=== PATIENT | female | born 1975 | race Caucasian/White ===

== ENCOUNTER 2017-03-10 10:49 | Emergency (ER) | payer MEDICARE, MEDICAID ==
[~2017-03-10] VITALS: Ht 167.6 cm; Wt 164.7 kg
[~2017-03-10 10:49] MED LIST: ABILIFY20 MG PO; ACETAMINOPHEN500 M3 PO; ACID GONE 420420 ML PO; AZITHROMYCIN250 M1 PO; BACTRIM DS 8001 TAB PO; BACTROBAN21 NS; BENZTROPINE 1MG1 MG PO; CELEXA40 MG PO; CITALOPRAM40 MG PO; CLARITIN 10MG T10 MG PO; CLINDAMYCIN HC300 MG PO; DIFLUCAN150 MG PO; DITROPAN 5MG TAB5 MG PO; ERY-TAB333 MG PO; GENTAMICIN O5 ML/BOT OP; IBUPROFEN600 MG PO; LASIX 40MG. TAB40 MG PO; LISINOPRIL 20MG20 MG PO; LISINOPRIL10 MG PO; LOPERAMIDE2 M1 PO; LORAZEPAM0.5 MG PO; MEDROL 4MG. DOSE4 MG PO; MIRALAX17 GM/PACK PO; MUPIROCIN2% TP; NYSTATIN1 POW; OMEPRAZOLE20 M1 PO; OMNICEF 300 MG300 MG PO; ROBITUSSIN DM 105 ML PO; SEPTRA DS 800 M1 TAB PO; SEROQUEL XR150 MG PO; SEROQUEL XR200 MG PO; SEROQUEL XR400 MG PO; VIBRAMYCIN 100100 MG PO; VISTARIL25 M1 PO; ZAROXOLYN 2.5M2.5 MG PO; ZOVIRAX51 TP
[2017-03-10] MEDS ORDERED: LEVAQUIN250 M1 PO (11:13)
--- NOTE | 2017-03-10 11:17 | Emergency Room Report ---
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 Clinical Suspician of Infection? Mental Status: Sepsis Risk: Have you (or family members/close friends) recently traveled outside the [place]? If Yes, where/when: Have you had exposure to infectious disease within the past month? TB? Other? Specify: 42 years old white female was brought by EMS because she needs her ring cut off. The patient has generalized lymphedema both upper and lower extremities. It looks like feeling on the LEFT ring finger has been sinking in her skin for a while with with purulent skin infection. She has no loss of movement or loss of Refill. She has finished a course of minocyclin antibiotic 2 days ago. Source patient, RN notes reviewed, EMS, fdc records Exam Limitations no limitations ALLERGIES Coded Allergies: Penicillins (Mild, 03/26/16) codeine (Mild, 03/26/16) Sulfa (Sulfonamide Antibiotics) (03/10/17) mupirocin (03/10/17) Home Medications Active Scripts CEFDINIR (Cefdinir) 300 MG PO BID #14 CAP Prov: 03/28/16 Clindamycin Hcl (Clindamycin 300MG) 300 MG PO TID #30 CAP Prov: 03/28/16 MUPIROCIN (Mupirocin 2% OINT) 1 DEMETRIA TP TID #1 TUBE Ref 3 Prov: 03/28/16 Metolazone (Zaroxolyn 2.5MG) 2.5 MG PO DAILY #30 TAB Ref 2 Prov: 03/28/16 Reported Medications Oxybutynin Chloride (Ditropan 5MG Tab) 5 MG PO DAILY Furosemide (Lasix 40MG) 40 MG PO BID Quetiapine Fumarate (Seroquel Xr) 300 MG PO DAILY Aripiprazole (Abilify) 20 MG PO DAILY CITALOPRAM HYDROBROMIDE (Citalopram HBr) 40 MG PO DAILY LISINOPRIL (Lisinopril) 20 MG PO DAILY Loratadine (Claritin 10MG) 10 MG PO DAILY Polyethylene Glycol 3350 (Miralax) 17 GM PO DAILY Acetaminophen (Acetaminophen Extra Strength) 1,000 MG PO Q4HP MAG CARB/AL HYDROX/ALGINIC AC (Acid Gone Antacid Liquid) 30 ML PO PRN Benztropine Mesylate (Benztropine 1MG Tablet) 1 MG PO Q4HP DEXTROMETHORPHAN-GG (Guaifenesin Dm Syrup) 10 ML PO PRN Hydroxyzine Pamoate (Vistaril 25MG CAP) 25 MG PO Q4HP IBUPROFEN (Ibuprofen 600MG) 600 MG PO Q6HP Loperamide Hydrochloride (Loperamide) 2 MG PO Q3HP Lorazepam 0.5 MG PO Q8HP Omeprazole 20 MG PO DAILY Quetiapine Fumarate (Seroquel Xr) 400 MG PO QHS History Medical History General CAD? No Angina: No PA: No Hypertension? Yes Hyperlipidemia? No CHF? No DVT? No PE? No COPD? No Asthma? No Anemia? No GERD? No Gastric ulcers? No GI Bleed? No Hernia? No Thyroid Problems? No Hypothyroidism? No CVA? No Seizures? No Diabetes? Yes Insulin Dependent: No Insulin Pump: No Home FSBS? No Renal Insuffiency? No End Stage Renal Disease? No UTI? No Stones? No BPH? No GB Disease: No Nephritic Syndrome? No Asplenia? No Hepatitis? No Sickle Cell Disease? No Arthritis? No Migraines? No Cataracts? No Glaucoma? No MRSA? No HIV? No TB? No Anxiety? No Depression? No Cancer? No More? Yes Additional hx: SCHIZOPRENIA Immunization Hx DT/Tetanus NOT SURE Flu 2015-FSN Pneumonia Refuses Surgical Hx Previous Surgery?N Family History Family Hx Diabetes Yes CAD Yes Hypertension Yes Hyperlipidemia Yes Cancer Yes TB No Social History Smoking Hx Packs/day 1 1/2 - 2 Packs Alcohol Alcohol: No Review of Systems All Other Systems Reviewed and Negative Constitutional no symptoms reported Eyes no symptoms reported ENT no symptoms reported. Respiratory no symptoms reported, see HPI, cough Cardiovascular no symptoms reported Gastrointestinal no symptoms reported Genitourinary no symptoms reported. Musculoskeletal see HPI Skin see HPI Psychiatric/Neurological no symptoms reported Physical Exam Vital Signs Vital Signs Date Time Temp Pulse Resp B/P Pulse O2 O2 Flow FiO2 Ox Delivery Rate 03/10 1049 98.4 122 20 156/96 98 - WBC >12,000 or <4,000 or 10% bands? 2 or more SIRS Criteria Met? B/P:156/96 MAP:116 Creatinine >2.0? UA output<0.5ml/kg/hr for 2 hrs? Platelet count >100,000? Lactate >2.0mmol/1? INR >1.2 or PTT > than 60 sec? Evidence of Organ Dysfunction? Provider documented clinical suspician of infection? N Sepsis Criteria Count: 2 Sepsis Risk: Possible Sepsis Risk General Appearance normal appearance, WD/WN Eye Exam - bilateral eye normal exam, bilateral eye PERRL, bilateral eye EOMI Ear, Nose, Throat hearing grossly normal, normal ENT inspection Neck normal inspection, non-tender, supple, full range of motion Respiratory Status Yes: trachea midline, chest symmetrical, non tender chest. No: respiratory distress. Lung Sounds bilateral: normal breath sounds, lungs clear. Cardiovascular normal exam, regular rate/rhythm, no peripheral edema, no gallop, no JVD, no murmur, no rub, normal peripheral pulses Peripheral Pulses Pulses normal Yes Gastrointestinal normal bowel sounds, normal exam, non tender, soft, no organomegaly Back normal inspection, no CVA tenderness, no vertebral tenderness Extremities swelling, edema over the RIGHT ring finger with the back or blurring sunken about 2 mm into the skin with Dr. granulation tissue on the edges and a foul smell offensive discharge. The crown all during is on the palmar side with no skin break. 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 No Results/Orders Orders Procedure Date/time Status [id number] (RING)-3 VIEWS 03/10 1057 Active XRAY/CT/US XRAY/CT/US XRAY hand XR interpretation by reviewed by me Xray Results soft tissue swelling and no osteomyelitis Procedures FB Removal (excluding Eyes) FB Removal Risks/benefits discussed with pt/guardian? Yes Location/Suspected object proximal left ring finger. Anesthesia None Risk of retained FB explained to pt/guardian? Yes Progress using a ring cutter and pliar the ring was removed. Nail Proc/Finger Tip Repair Nail Proc/Finger Tip Repair Risks/benefits discussed with pt/guardian? Yes Nail Procedure/Finger Tip Repair ring cutting Anesthesia None Evacuation of subungual hematoma No Complete nail removal No Partial nail removal %- No Excision of nail & nailbed No Debridement [place] No Debridement Moderate No Debridement Heavy No Rongeur of bone No Removal of FB Yes Irrigation ml- Yes Sterile Dressing Applied No Finger Splint No Progress after the ring removal the patietn was able to use her finger and flexe the distal phalanges. Central Line Central Line Placement Risks/benefits discussed with pt/guardian? No Anesthesia none Departure Departure Time of Disposition 1104 Disposition DC Home or Self Care(routine) Clinical Impression Primary Impression: Ring avulsion Secondary Impressions: Allergy to sulfa drugs, Cellulitis, Lymphedema, Penicillin allergy Condition STABLE Referrals Kateryna DILL,Emiliano Miller (PCP) Additional Instructions using the ring cutter the ring was removed daily wound care with soap and water apply neosporin at least twice a day levaquin 500 mg continue diuretics andf follow up with Dr. Khalil in [place] for a recheck Discharge Counseling Counseled pt/family regarding diagnosis, R/B of controlled subst., medications/RX, home care, follow up needs Prescriptions Current Visit Scripts Levofloxacin (Levaquin) 250 MG PO DAILY #10 TAB ED Critical Care Critical Care No If Critical Care minutes are documented, the time involved in the performance of seperately reportable procedures was not counted toward critical care time documented. I directly delivered medical care to this critically ill and/or injured patient. Timely evaluation and treatment was necessary to address the significant organ system(s) dysfunction present in this patient. at 1117
[2017-03-10 11:41] VITALS: BP 150/84
--- NOTE | 2017-03-10 11:57 | RADIOLOGY REPORT PS360 ---
[id number] (RING)-3 VIEWS HISTORY: OPEN AREA Patient Age: 42 years: Female Ordering Physician: Karissa Bautista MD TECHNIQUE: 3 views of the fourth finger Including the fifth finger on the frontal and oblique views.. COMPARISON :None FINDINGS No previous studies available. Swelling of the fingers evident most evident at proximal fingers and particularly pronounced at the proximal fourth finger. No radiopaque foreign body is evident. No osseous destruction nor evidence of osteomyelitis. Understand clinically there is suggestion infection related to the patient's fourth finger.. There is a ringlike residual tapering at the base of fourth finger which may reflect residual from removed ring possibly IMPRESSION: No osseous findings. No evidence osteomyelitis on plain film. Swelling at the fingers most pronounced at the proximal fourth finger
== END 2017-03-10 11:42 | disposition home or self-care (01) ==
LOC: ER 10:49
DX: S61.201A Unspecified open wound of left index finger without damage to nail, initial encounter (principal); L03.012 Cellulitis of left finger; I89.0 Lymphedema, not elsewhere classified; Z88.0 Allergy status to penicillin; Z88.2 Allergy status to sulfonamides

== ENCOUNTER 2017-03-17 02:14 | Emergency (ER) | payer MEDICARE, MEDICAID ==
[~2017-03-17] VITALS: Ht 167.6 cm; Wt 157.4 kg
[~2017-03-17 02:14] MED LIST changes: +LEVAQUIN250 M1 PO
[2017-03-17 03:08] LABS: LYMPH # 2.4 K/mm3 (0.7-4.5); LYMPH % 27.5 % (10-50.0)
--- NOTE | 2017-03-17 03:09 | Emergency Room Report ---
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 Denies ttp when c-spine palpated. 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 N Clinical Suspician of Infection? N Mental Status: 1 - Regular (Normal Baseline) Sepsis Risk:Low Sepsis Risk Have you (or family members/close friends) recently traveled outside the [place]? N If Yes, where/when: Have you had exposure to infectious disease within the past month? N TB? Other? Specify: Source patient, RN notes reviewed, EMS, fdc records, old records Exam Limitations no limitations Comment slipped after coughing episode this am and hit forehead w/o loc but has hematoma Cardiac Chest Pain Chest pain indicative of cardiac No Timing/Duration this evening Severity moderate ALLERGIES Coded Allergies: Penicillins (Mild, 03/26/16) codeine (Mild, 03/26/16) Sulfa (Sulfonamide Antibiotics) (03/10/17) mupirocin (03/10/17) Home Medications Active Scripts CEFDINIR (Cefdinir) 300 MG PO BID #14 CAP Prov: 03/28/16 Clindamycin Hcl (Clindamycin 300MG) 300 MG PO TID #30 CAP Prov: 03/28/16 MUPIROCIN (Mupirocin 2% OINT) 1 DEMETRIA TP TID #1 TUBE Ref 3 Prov: 03/28/16 Metolazone (Zaroxolyn 2.5MG) 2.5 MG PO DAILY #30 TAB Ref 2 Prov: 03/28/16 Levofloxacin (Levaquin) 250 MG PO DAILY #10 TAB Prov: 03/10/17 Reported Medications Oxybutynin Chloride (Ditropan 5MG Tab) 5 MG PO DAILY Furosemide (Lasix 40MG) 40 MG PO BID Quetiapine Fumarate (Seroquel Xr) 300 MG PO DAILY Aripiprazole (Abilify) 20 MG PO DAILY CITALOPRAM HYDROBROMIDE (Citalopram HBr) 40 MG PO DAILY LISINOPRIL (Lisinopril) 20 MG PO DAILY Loratadine (Claritin 10MG) 10 MG PO DAILY Polyethylene Glycol 3350 (Miralax) 17 GM PO DAILY Acetaminophen (Acetaminophen Extra Strength) 1,000 MG PO Q4HP MAG CARB/AL HYDROX/ALGINIC AC (Acid Gone Antacid Liquid) 30 ML PO PRN Benztropine Mesylate (Benztropine 1MG Tablet) 1 MG PO Q4HP DEXTROMETHORPHAN-GG (Guaifenesin Dm Syrup) 10 ML PO PRN Hydroxyzine Pamoate (Vistaril 25MG CAP) 25 MG PO Q4HP IBUPROFEN (Ibuprofen 600MG) 600 MG PO Q6HP Loperamide Hydrochloride (Loperamide) 2 MG PO Q3HP Lorazepam 0.5 MG PO Q8HP Omeprazole 20 MG PO DAILY Quetiapine Fumarate (Seroquel Xr) 400 MG PO QHS History Medical History General CAD? No Angina: No DC: No Hypertension? Yes Hyperlipidemia? No CHF? No DVT? No PE? No COPD? No Asthma? No Anemia? No GERD? No Gastric ulcers? No GI Bleed? No Hernia? No Thyroid Problems? No Hypothyroidism? No CVA? No Seizures? No Diabetes? Yes Insulin Dependent: No Insulin Pump: No Home FSBS? No Renal Insuffiency? No End Stage Renal Disease? No UTI? No Stones? No BPH? No GB Disease: No Nephritic Syndrome? No Asplenia? No Hepatitis? No Sickle Cell Disease? No Arthritis? No Migraines? No Cataracts? No Glaucoma? No MRSA? No HIV? No TB? No Anxiety? No Depression? No Cancer? No More? 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 Respiratory see HPI, cough, denies shortness of breath, denies wheezing Cardiovascular denies chest pain, denies palpitations, denies syncope Gastrointestinal denies abdominal pain, denies diarrhea, denies vomiting Genitourinary denies: dysuria, frequency, hesitancy, hematuria. Musculoskeletal see HPI, denies back pain, denies joint pain, denies joint swelling, neck pain Skin denies rash Psychiatric/Neurological see HPI, headache, denies seizure Physical Exam Vital Signs Vital Signs Date Time Temp Pulse Resp B/P Pulse O2 O2 Flow FiO2 Ox Delivery Rate 03/17 0217 97.5 96 14 153/82 96 - WBC >12,000 or <4,000 or 10% bands? 2 or more SIRS Criteria Met? B/P:153/82 MAP:105 Creatinine >2.0? UA output<0.5ml/kg/hr for 2 hrs? Platelet count >100,000? Lactate >2.0mmol/1? INR >1.2 or PTT > than 60 sec? Evidence of Organ Dysfunction? Provider documented clinical suspician of infection? N Sepsis Criteria Count: 1 Sepsis Risk: Low Sepsis Risk General Appearance no apparent distress Eye Exam - bilateral eye PERRL, bilateral eye EOMI Ear, Nose, Throat normal ENT inspection Neck limited range of motion, tender lateral Respiratory Status No: respiratory distress. Lung Sounds bilateral: lungs clear. 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 No Results/Orders Laboratory Tests 03/17/17 0300: Urine Color YELLOW, Urine Appearance CLEAR, Urine pH 6.0, Ur Specific [place] 1.010, Urine Protein NEGATIVE, Urine Ketones NEGATIVE, Urine Blood NEGATIVE, Urine Nitrate NEGATIVE, Urine Bilirubin NEGATIVE, Urine Urobilinogen 0.2, Ur Leukocyte Esterase NEGATIVE, Urine WBC OCC, Ur Squamous Epith Cells 10-20, Urine Glucose NEGATIVE 03/17/17 0245: Sodium 131 L, Potassium 3.4 L, Chloride 96 L, Carbon Dioxide 29, BUN 7, Creatinine 0.8, Estimated Creat Clear 225 H, Estimated GFR (MDRD) 78, Glucose 151 H, Calcium 8.4 L, Total Bilirubin 0.3, AST 12 L, ALT 24, Alkaline Phosphatase 86, Creatine Kinase 55, CK-MB (CK-2) Rel Index 0.9, CK and CKMB Interp < 0.5, Troponin I < 0.02, Total Protein 6.9, Albumin 3.0 L, Globulin 3.9 H, Albumin/Globulin Ratio 0.8 L, WBC 8.8, RBC 4.44, Hgb 13.1, Hct 40.4, MCV 91.1, RDW 17.4, Plt Count 229, MPV 8.4, Gran % 64.3, Gran # 5.7, Lymphocytes % 27.5, Monocytes % 4.8, Eosinophils % 2.8, Basophils % 0.7, Lymphocytes # 2.4, Monocytes # 0.4, Eosinophils # 0.3, Basophils # 0.1, PUBS MCHC 32.5, MCH 29.6 Current Medication Orders Sig/Maribel Start time Last Medication Dose Route Stop Time Status Admin Albuterol/Ipratropium 3 ML ONCE ONE 03/17 0300 DC INH 03/17 0301 Sodium Chloride 1,000 ML .STK-MED ONE 03/17 0253 DC IV Sodium Chloride 10 ML PRN PRN 03/17 0245 AC IV 03/18 0243 Sodium Chloride 1,000 ML .Q1H1M 03/17 0245 DC 03/17 IV 03/17 0345 0255 Sodium Chloride 10 ML PRN PRN 03/17 0245 AC IV 03/18 0244 Orders Procedure Date/time Status DIET-NOTHING BY MOUTH 03/[address] SCAN REQ 03/[address] CERVICAL SPINE W/O CONT. 03/[address] HEAD W/O CONTRAST 03/17 0319 Active URINE 03/17 025 Complete RT REQUEST DUONEB 03/17 247 Active CHEST(2 VIEWS-NOT PORTABLE) 03/17 024 Active ELECTROCARDIOGRAM REQUEST 03/[address] HEAD REQ 09/24 0244 Active IV SALINE LOCK 03/17 244 Active PERSONNEL ASSISTANT 03/17 244 Active URINALYSIS/COMPLETE 03/17 244 Complete CBC WITH AUTO DIFF 03/17 244 Complete CARDIAC ENZYMES 03/17 244 Complete CHEM 12 PROFILE 03/17 244 Complete 12 LEAD EKG-NORMAN (INITIAL) 03/17 UNK Active CM/EKG CM/plater production Rhythm Normal Sinus Rhythm EKG non-spec. ST/Twave chgs XRAY/CT/US XRAY/CT/US 1 XRAY chest XR interpretation by reviewed by me Xray Results normal/NAD XRAY/CT/US 2 CT head, C-spine CT interpretation by discussed w/radiologist Time results known: 411 CT Results no fracture seen, abnormal (see report) Departure Departure Time of Disposition 412 Disposition DC Home or Self Care(routine) Clinical Impression Primary Impression: Cervical stenosis of spine Secondary Impressions: Foraminal stenosis of cervical region Traumatic hematoma of forehead Qualifiers: Encounter type: initial encounter Qualified Code: S00.83XA - Contusion of other part of head, initial encounter Condition STABLE Patient Instructions DI for Closed Head Injury Additional Instructions ice and resume meds and see pcp for follow up Discharge Counseling Counseled pt/family regarding diagnosis, test results, follow up needs ED Critical Care Critical Care No at 0421
[2017-03-17 03:12] LABS: URINE BILIRUBIN - DIPSTICK NEGATIVE (NEG); URINE BLOOD NEGATIVE (NEG)
[2017-03-17 03:12] LABS: HEMOGLOBIN 13.1 g/dL (12.2-16.2)
[2017-03-17 03:29] LABS: BUN 7 mg/dL (7-18)
[2017-03-17 03:36] LABS: GFR (ESTIMATED) 78 ML/MIN (59-)
[2017-03-17 04:32] VITALS: BP 145/76
--- NOTE | 2017-03-17 06:41 | RADIOLOGY REPORT PS360 ---
CHEST(2 VIEWS-NOT PORTABLE) HISTORY: RECENT RESPIRATORY INFECTION, WHEEZING ORDERING PHYSICIAN: Devin Avendaño MD PATIENT AGE: 42 years COMPARISON: None available FINDINGS: The cardiomediastinal silhouette and pulmonary vascularity are within normal limits. No lobar consolidation or collapse. An 11 mm opacity is present in the right suprahilar region and could be due to summation artifact versus pulmonary nodule. Slight reversal thoracic kyphosis. IMPRESSION: No acute finding. Right suprahilar nodule versus summation density. Follow-up chest x-rays may be of further value
--- NOTE | 2017-03-17 06:42 | RADIOLOGY REPORT PS360 ---
CT HEAD W/O CONTRAST HISTORY: Headache, pain, contusion, hematoma right frontal area FALL ORDERING PHYSICIAN: Devin Avendaño MD PATIENT AGE: 42 years COMPARISON: None TECHNIQUE: Axial images obtained without contrast. Brain and bone windows reviewed. FINDINGS: No midline shift, mass effect, intracranial hemorrhage, hydrocephalus, or extra-axial fluid collection is evident. The calvarium has an unremarkable appearance. Soft tissue swelling is present in the right frontal scalp area. No mastoid effusion. The visualized paranasal sinuses are unremarkable. IMPRESSION: 1. No acute intracranial findings. 2. Right frontal scalp hematoma
--- NOTE | 2017-03-17 06:48 | RADIOLOGY REPORT PS360 ---
CT CERVICAL SPINE W/O CONT INDICATION: Neck pain following injury FALL ORDERING PHYSICIAN: Devin Avendaño MD PATIENT AGE: 42 years COMPARISON: None TECHNIQUE: Axial images are obtained without contrast. Sagittal and coronal reformatted images are reviewed as well. FINDINGS: Reformatted images are somewhat limited technically due to patient's body habitus. There is normal alignment. There is straightening of the cervical lordosis There is a defect in the posterior arch of C1 on the left produces well-circumscribed and may be developmental/congenital as opposed to fracture. The left side of the arch of C1 is hypoplastic compared to the right side. Multilevel degenerative disc disease is present at C3-C7 most severe at C5-C6 and C6-C7 with right and left disc osteophyte complexes, canal stenosis, bilateral lateral recess and foraminal narrowing at C5 and disc osteophyte complex on the right at C6-C7 with right-sided lateral recess and foraminal narrowing. The lung apices are clear. No prevertebral soft tissue swelling. IMPRESSION: 1. No acute fracture 2. 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 3. Multilevel cervical spondylosis with canal stenosis and foraminal lateral recess narrowing as detailed above
== END 2017-03-17 04:32 | disposition home or self-care (01) ==
LOC: ER 02:14
PROVIDERS: Emergency Medicine
DX: S00.83XA Contusion of other part of head, initial encounter (principal); W22.8XXA Striking against or struck by other objects, initial encounter; Y92.9 Unspecified place or not applicable; Z88.0 Allergy status to penicillin; Z88.2 Allergy status to sulfonamides; Z88.6 Allergy status to analgesic agent; M48.02 Spinal stenosis, cervical region; I10 Essential (primary) hypertension; E11.9 Type 2 diabetes mellitus without complications; Z72.0 Tobacco use

== ENCOUNTER 2017-04-07 15:06 | Emergency (ER) | payer MEDICARE, MEDICAID ==
[~2017-04-07] VITALS: Ht 167.6 cm; Wt 157.4 kg
--- NOTE | 2017-04-07 15:28 | Emergency Room Report ---
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 FELL OFF PICNIC TABLE ON TO GROUND. 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 N Clinical Suspician of Infection? Y Mental Status: 1 - Regular (Normal Baseline) Sepsis Risk:Possible Sepsis Risk Have you (or family members/close friends) recently traveled outside the [place]? N If Yes, where/when: Have you had exposure to infectious disease within the past month? N TB? Other? Specify: Comment The patient arrives by ambulance from [facility] for an infected wound. She says that she fell 3-4 weeks ago sustaining an abrasion to the dorsum of her LEFT foot. The wound has gotten deeper since then and over the past 2-3 days she has developed redness around it. She says she had a low-grade fever last night. She is already on minocycline because of a recurrent cellulitis of her LEFT lower leg that she says originated from a "spider bite" 6 months ago. She says that she is prediabetic. ALLERGIES Coded Allergies: Penicillins (Mild, 03/26/16) codeine (Mild, 03/26/16) Sulfa (Sulfonamide Antibiotics) (03/10/17) mupirocin (03/10/17) Home Medications Reported Medications Furosemide (Lasix 40MG) 40 MG PO BID CITALOPRAM HYDROBROMIDE (Citalopram HBr) 40 MG PO DAILY Loratadine (Claritin 10MG) 10 MG PO DAILY Polyethylene Glycol 3350 (Miralax) 17 GM PO DAILY Acetaminophen (Acetaminophen Extra Strength) 1,000 MG PO Q4HP Benztropine Mesylate (Benztropine 1MG Tablet) 1 MG PO Q4HP IBUPROFEN (Ibuprofen 600MG) 600 MG PO Q6HP Loperamide Hydrochloride (Loperamide) 2 MG PO Q3HP Lorazepam 1 MG PO Q4HP Aripiprazole (Abilify) 30 MG PO DAILY Oxybutynin Chloride (Ditropan 5MG Tab) 10 MG PO DAILY Quetiapine Fumarate (Seroquel Xr) 300 MG PO QHS LISINOPRIL (Lisinopril) 20 MG PO DAILY Minocycline Hcl (Minocycline 100MG. Capsule) 100 MG PO BID 7 Days Loratadine (Loratadine 10MG Tablet) 10 MG PO DAILY Lactulose (Lactulose) 10 GM PO DAILYP PRN CONSTIPATION History Medical History General CAD? No Angina: No NH: No Hypertension? Yes Hyperlipidemia? No CHF? No DVT? No PE? No COPD? No Asthma? No Anemia? No GERD? No Gastric ulcers? No GI Bleed? No Hernia? No Thyroid Problems? No Hypothyroidism? No CVA? No Seizures? No Diabetes? No Insulin Dependent: No Insulin Pump: No Home FSBS? No Renal Insuffiency? No End Stage Renal Disease? No UTI? Yes Stones? No BPH? No GB Disease: No Nephritic Syndrome? No Asplenia? No Hepatitis? No Sickle Cell Disease? No Arthritis? No Migraines? No Cataracts? No Glaucoma? No MRSA? No HIV? No TB? No Anxiety? No Depression? No Cancer? No More? 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 2 or more SIRS Criteria Met? B/P:131/75 MAP:93 Creatinine >2.0? UA output<0.5ml/kg/hr for 2 hrs? Platelet count >100,000? Lactate >2.0mmol/1? INR >1.2 or PTT > than 60 sec? Evidence of Organ Dysfunction? Provider documented clinical suspician of infection? Y Sepsis Criteria Count: 2 Sepsis Risk: Possible Sepsis Risk General Appearance no apparent distress Respiratory Status No: respiratory distress. Cardiovascular normal exam, normal peripheral pulses Extremities 2 cm x 2.5 cm ulcer on the dorsum of the LEFT foot over the region of the distal fourth metatarsal. some exposure of the dermis and minimal exposure of subcutaneous fat. 3 cm area of exfoliation around it., erythema surrounds this wound extending approximately 10 cm diameter., no purulent drainage can be expressed. No lymphangitis., 1 cm x 2.5 cm healed scar anterior LEFT lower leg with surrounding erythema approximately 10 cm. Patient states this has been a chronic recurrent problem for 6 months and she is currently taking antibiotics for this. Neurologic alert, no motor/sensory deficits Medical Decision Making LABS/Meds/Orders Pt receiving controlled substance in ED? No Results/Orders Laboratory Tests 04/07/17 161: Lactic Acid 1.3 04/07/17 161: Sodium 136, Potassium 4.0, Chloride 98, Carbon Dioxide 32, BUN 7, Creatinine 0.7 , Estimated Creat Clear 257 H, Estimated GFR (MDRD) 91, Glucose 103, Calcium 8.7, WBC 7.9, RBC 4.45, Hgb 13.2, Hct 39.7, MCV 89.2, RDW 17.0, Plt Count 238, MPV 8.4, Gran % 74.2, Gran # 5.8, Lymphocytes % 18.1, Monocytes % 5.8, Eosinophils % 1.6, Basophils % 0.4, Lymphocytes # 1.4, Monocytes # 0.5, Eosinophils # 0.1, Basophils # 0.0, PUBS MCHC 33.1, MCH 29.6 Current Medication Orders Sig/Maribel Start time Last Medication Dose Route Stop Time Status Admin Sodium Chloride 100 ML .STK-MED ONE 04/07 1622 DC IV Clindamycin Phosphate 0 .STK-MED ONE 04/07 162 DC IV Clindamycin Phosphate 900 MG ONCE ONE 04/07 161 DC 04/07 Sodium Chloride 100 ML IV 04/07 1714 1625 Sodium Chloride 10 ML PRN PRN 04/07 1530 DCD IV 04/08 1523 Orders Procedure Date/time Status FOOT-LT-3 VIEWS 04/07 1546 Active IV SALINE LOCK 04/07 1523 Active CULTURE, BLOOD 04/07 1523 Active LACTIC ACID 04/07 1523 Complete CBC WITH AUTO DIFF 04/07 1523 Complete BASIC METABOLIC PROFILE 04/07 1523 Complete CULTURE, WOUND 04/07 1522 Active XRAY/CT/US XRAY/CT/US XRAY foot Comment X-ray interpreted by Robel Fry M.D.: small metallic foreign body plantar aspect of the great toe, not area of current concern. No signs of osteomyelitis Departure Departure Disposition DC Home or Self Care(routine) Clinical Impression Primary Impression: Cellulitis of foot Condition STABLE Referrals Kateryna DILL,Emiliano Miller (PCP/Family) Patient Instructions DI for Cellulitis -- Adult Additional Instructions Stop minocycline and start clindamycin. Follow-up with Dr. Avendaño tomorrow for further treatment and possible referral to wound care. Return if fever greater than 101 degrees or worsening redness or swelling. Prescriptions Current Visit Scripts Clindamycin Hcl (Clindamycin 300MG) 300 MG PO QID #40 CAP ED Critical Care Critical Care No at 1753
--- OUTSIDE RECORDS SUMMARY | 2017-04-07 15:36 | External Medical Summary Rpt | Continuity of Care Document ---
Author Author Organization Address Unknown Phone Unavailable Care Team Providers Care Pack Puller Name Role Phone , Unavailable Unavailable EMS Current Medications Section EMS Allergies and Adverse Reactions EMS Past Medical History Medications Administered Section EMS Procedures Performed EMS Vital Signs EMS Patient Care Report Narrative EC2 responded to [place] for a 42 year old female who had swelling in her left ring finger which resulted in her ring getting stuck on her finger. On arrival patient was standing in the hallway waiting EMS arrival. Patient stated that her finger had been swollen for the past 2 days. Patient was able to walk to EC unit with assist X1 and using a step stool was able to step up into the back of the ambulance, then lay on stretcher and was secured X3. Patient was alert and oriented X4. Patient had a medical history of diabetes, hypertension, and schizophrenia. Upon further assessment the ring was embedded in the patients finger and was black around the edges of the ring and had a foul smell, patient stated on a scale of 1-10 her pain was a 7. An ALS assessment was performed and found no results. It was determined by crew that it would be better for the patient if ring was removed at the Er. Vitals were obtained and monitored during transport. On arrival to receiving facility patients condition was unchanged and was transported inside by stretcher and was able to stand and walk to bed with assist X1. Patient care was transferred without incident.
--- OUTSIDE RECORDS SUMMARY | 2017-04-07 15:36 | External Medical Summary Rpt | Continuity of Care Document ---
Author Author Organization Address Unknown Phone Unavailable Care Team Providers Care Body Worker Name Role Phone , Unavailable Unavailable EMS Current Medications Section EMS Allergies and Adverse Reactions EMS Past Medical History Medications Administered Section EMS Procedures Performed EMS Vital Signs EMS Patient Care Report Narrative Was dispatched to [facility] for a pt that had fallen, upon EMS arrival found pt sitting in chair in the hallway. Pt had a large hematoma to her forehead, pt stated that she was outside sitting on the picnic table and then she woke up on the ground, pt states she doesn't remember what happened. Pt complains of no pain and did not wish to go to the hospital, advised pt that she should really be seen and checked by a Dr. Pt stated that if she got to feeling bad she would have staff call us back, advised pt again that she needed to come with us now to be seen, pt agreed and walked to the ambulance and sat on the stretcher, straps where applied x3 and pt was transported to [facility]. At hospital pt was taken to room 7 in the Er, pt got off of our stretcher and sat bed, nursing staff assumed care for the pt. Erlinda
--- OUTSIDE RECORDS SUMMARY | 2017-04-07 15:36 | External Medical Summary Rpt | Continuity of Care Document ---
Author Author Organization Address Unknown Phone Unavailable Care Team Providers Care Conflict Resolution Professional Name Role Phone , Unavailable Unavailable EMS Current Medications Section EMS Allergies and Adverse Reactions EMS Past Medical History Medications Administered Section EMS Procedures Performed EMS Vital Signs EMS Patient Care Report Narrative Was dispatched to [facility] for a pt that had fallen, upon [...] applied x3 and pt was transported to [facility]. At hospital pt was taken to room 7 in the Er, pt got off of our stretcher and sat bed, nursing staff assumed care for the pt. Erlinda
--- OUTSIDE RECORDS SUMMARY | 2017-04-07 15:36 | External Medical Summary Rpt | Continuity of Care Document ---
Author Author Organization Address Unknown Phone Unavailable Care Team Providers Care Review Coordinator Name Role Phone , Unavailable Unavailable EMS Current Medications Section EMS Allergies and Adverse Reactions EMS Past Medical History Medications Administered Section EMS Procedures Performed EMS Vital Signs EMS Patient Care Report Narrative Was dispatched to [facility] for a pt that had fallen, upon [...] applied x3 and pt was transported to [facility]. At hospital pt was taken to room 7 in the Er, pt got off of our stretcher and sat bed, nursing staff assumed care for the pt. Erlinda
--- OUTSIDE RECORDS SUMMARY | 2017-04-07 15:36 | External Medical Summary Rpt | Continuity of Care Document ---
Author Author Organization Address Unknown Phone Unavailable Care Team Providers Care Cocoa Bean Roaster Name Role Phone , Unavailable Unavailable EMS Current Medications Section EMS Allergies and Adverse Reactions EMS Past Medical History Medications Administered Section EMS Procedures Performed EMS Vital Signs EMS Patient Care Report Narrative Was dispatched to [facility] for a pt that had fallen, upon [...] applied x3 and pt was transported to [facility]. At hospital pt was taken to room 7 in the Er, pt got off of our stretcher and sat bed, nursing staff assumed care for the pt. Erlinda
--- OUTSIDE RECORDS SUMMARY | 2017-04-07 15:36 | External Medical Summary Rpt | Continuity of Care Document ---
Author Author Organization Address Unknown Phone Unavailable Care Team Providers Care Hot Wound [place] Production Supervisor Name Role Phone , Unavailable Unavailable EMS Current Medications Section EMS Allergies and Adverse Reactions EMS Past Medical History Medications Administered Section EMS Procedures Performed EMS Vital Signs EMS Patient Care Report Narrative EC2 responded to [place] for a 42 year old female who [...]
[2017-04-07] MEDS ORDERED: LISINOPRIL 20MG20 MG PO (15:39)
[2017-04-07] MEDS ORDERED: MINOCYCLINE 10100 MG PO (15:44)
--- OUTSIDE RECORDS SUMMARY | 2017-04-07 15:44 | External Medical Summary Rpt | CCD ---
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 Name Role Phone VLAD DICKSON, Unavailable Unavailable VLAD DICKSON BRAUDIS, BRAUDIS Unavailable Unavailable BRAUDIS, BRAUDIS Unavailable Unavailable BRAUDIS JAM, BRAUDIS Unavailable Unavailable JAM BRAUDIS JAM, BRAUDIS Unavailable Unavailable JAM [facility] Unavailable Unavailable SERVICE, [facility] Unavailable Unavailable SERVICE, [facility] [place] [facility], [facility] Unavailable Unavailable DAVIS QUIRINO, DAVIS Unavailable Unavailable [facility], Unavailable [facility]available [facility] Unavailable Unavailable [place], [facility] Unavailable Unavailable [facility], [facility] Unavailable Unavailable LAB, [facility] Unavailable Unavailable LAB, [facility] ROSELYN SHARA, Unavailable Unavailable ROSELYN SHARA [facility] Unavailable Unavailable [facility], [facility] Unavailable Unavailable LLC, [facility] [employer] Unavailable Unavailable LLC, [facility] [employer] [facility] Unavailable Unavailable DIAGNOSTIC SE, [facility] Unavailable Unavailable DIAGNOSTIC SE, [facility] Unavailable Unavailable TRANSPORTATION SER, [facility] FLORES, FLROES Unavailable Unavailable HARRIET, ALE Unavailable Unavailable I, HARRIET, ALE I FINK-BLANDON RAYMOND, Unavailable Unavailable FINK-BLANDON RAYMOND [facility] Unavailable Unavailable [place], [facility] Unavailable Unavailable CENTER[facility] Unavailable Unavailable INC, [facility] Unavailable Unavailable HOSPITAL P, [facility]PITAL P [facility]available Unavailable [facility] Unavailable Unavailable [facility], [facility] ASHUTOSH THE, [facility] Unavailable Unavailable [facility] Unavailable Unavailable [id number], [facility] [id number] [facility] Un[facility], [facility] Unavailable Unavailable [facility], [facility] [place], [place] Unavailable Unavailable [facility] Unavailable Unavailable 11, [facility] Unavailable Unavailable ACTION, [facility] Unavailable Unavailable SERVICES, [facility] SANDRA MCGRAW, SANDRA Unavailable Unavailable [facility] Un[facility]available LLC[facility] Unavailable Unavailable LAB, [facility] Unavailable Unavailable LAB, [facility] SHE, III LANA, Unavailable Unavailable SHE, III LANA [facility], Unavailable Unavailable [facility], Unavailable Unavailable [facility] BRITTON II TERRY, BRITTON Unavailable Unavailable II TERRY JET, JET Unavailable Unavailable JET TOD, JET TOD Unavailable Unavailable MIC NOAM, MIC Unavailable Unavailable [facility] Unavailable Unavailable [facility], [facility] Unavailable Unavailable [facility], [facility], Unavailable Unavailable [facility] SUBLER, MITZY, SUBLER, Unavailable Unavailable MITZY [facility] Unavailable Unavailable SURGERY C, [facility] Unavailable Unavailable GASTROENTEROLOGYAS, [facility] Unavailable Unavailable [facility] CARO LUCIO, Unavailable Unavailable CARO LUCIO [facility] Unavailable Unavailable DEPT DAVE, [facility] WEHRISIS III DEVON, Unavailable Unavailable WEHRMAN III REECE KULKARNI Unavailable Unavailable Purpose Continuity of Care Document - 06-24-2008 through 2016 Problems Code Diagnosis DOS Provider Status I10 ESSENTIAL 01-31-2017 [facility] HYPERTEN[facility]O LAB N 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 N UNS CERV REGION R69 ILLNESS 01-16-2017 [facility] UNSPECIFIED TRANSPORTAT ION SER H6091 UNSPECIFIED 11-14-2016 [facility]YSICIANS EXTERNA GROUP RIGHT EAR H6533 CHRONIC 11-14-2016 [facility] MUCOID PHYSICIANS OTITIS GROUP MEDIA BILATERAL R7301 IMPAIRED 10-04-2016 [facility] GLUCOSE LA [id number] UNS ACUTE 09-27-2016 [facility] NONINFECTIV PHYSICIANS E OTITIS GROUP EXTERNA UNS EAR H6691 OTITIS 09-27-2016 [facility] MEDIA PHYSICIANS UNSPECIFIED GROUP RIGHT EAR E119 TYPE 2 09-18-2016 [facility] WITHOUT COMPLICATIO NS R7303 PREDIABETES 07-26-2016 [facility] E039 HYPOTHYROID 06-21-2016 [facility] ISM PHYSICIANS UNSPECIFIED LA E785 HYPERLIPIDE 06-21-2016 [facility] BREN [facility] UNSPECIFIED LA R300 DYSURIA 06-21-2016 [facility] LA [id number] CUTANEOUS 06-06-2016 [facility] ABSCESS OF PHYSICIANS LEFT LOWER GROUP LIMB B351 TINEA 05-04-2016 TRACY[facility] UNGUIUM E1151 TYPE 2 DM 05-04-2016 BRA[facility]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 X34462 PAIN IN 05-04-2016 [facility] RIGHT FOOT U76323 PAIN IN 05-04-2016 [facility] LEFT FOOT T64111 PAIN IN 05-04-2016 [facility] RIGHT TOES M75691 PAIN IN 05-04-2016 [facility] LEFT TOES R600 LOCALIZED 05-04-2016 [facility] EDEMA I361 NONRHEUMATI 03-27-2016 [facility] INSUFFICIEN CY I517 CARDIOMEGAL 03-27-2016 [facility] P72745 PAIN IN 03-27-2016 [place] [facility] V94338 PAIN IN 03-26-2016 [facility] LEFT LOWER AMBULANCE LEG SERVICE R609 EDEMA 03-26-2016 [facility] UNSPECIFIED [facility] SERVICE D69640 UNS 01-11-2016 [facility] S[facility] ATHEROSCLER [place] ART EXTREM BILATERAL LEGS L851 ACQ 01-11-2016 JUANA SALEH KERATOSIS KERATODERMA PALMARIS ET PLANTARIS N920 EXCESS & 09-13-2015 [facility] FREQUENT PHYSICIANS MENSTRUATIO GROUP N W/REGULAR CYCLE N926 IRREGULAR 09-13-2015 [facility] MENSTRUATIO PHYSICIANS N GROUP UNSPECIFIED Z23 ENCOUNTER 04-04-2015 [facility] IMMUNIZATIO TH DEPT N DAVE 27064 DIAB W/O 03-17-2015 [facility] COMP TYPE PHYSICIANS II/UNS NOT LA STATED UNCNTRL 4019 UNSPECIFIED 03-17-2015 [facility] ESSENTIAL [facility] HYPERTENSIO LA N 5990 URINARY 03-17-2015 [facility] TRACT PHYSICIANS INFECTION LA SITE NOT SPECIFIED 1101 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 SALEH OSIS OF NAIL 49048 ATHEROSCLER 01-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 SALE[facility] OSIS [place] ART EXTREMITIES UNSPEC 7011 ACQUIRED 01-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 SALEH KERATODERMA 7295 PAIN IN 01-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 SALEH SOFT TISSUES OF LIMB 95533 09-21-2014 [facility] TRANSPORTAT ION SER 7823 EDEMA 04-27-2014 JUANA SALEH V5869 LONG-TERM 11-25-2013 [facility] (CURRENT) PHYSICIANS USE OF LA OTHER MEDICATIONS V0481 NEED 04-30-2013 [facility] VACCINATION &INOCULATIO N FLU 514 PULMONARY 07-31-2012 [facility] [place] [address] WHEEZING 07-31-2012 [facility] DI[facility]NO[facility] SE 7862 COUGH 07-31-2012 [place] [address] DIAB 07-21-2012 TRACYGARCIAJordan SALEH W/PERIPH CIRC D/O TYPE II/UNS NOT UNCNTRL 7048 OTHER 05-24-2012 [facility] SPECIFIED [facility]GENCY DISEASE OF SERVICES HAIR&HAIR FOLLICLES 2809 UNSPECIFIED 12-19-2011 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 37795 PAIN IN 12-19-2011 [facility], [employer] LOWER LEG 7906 OTHER 12-19-2011 LAB [facility] ABNORMAL AMERIC BLOOD HOLDING CHEMISTRY 31494 OTHER 07-26-2011 DERMATOLOG[facility] SPECIFIED [facility] 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 12492 PAIN IN 05-28-2011 [facility]INT [employer] PELVIC REGION AND THIGH 6826 CELLULITIS 05-09-2011 [facility] ABSCESS EMERGENCY OF LEG SERVICES EXCEPT FOOT 3829 UNSPECIFIED 04-18-2011 [facility] OTITIS [facility] MEDIA SERVICES 4580 ORTHOSTATIC 04-18-2011 [facility] P 4589 UNSPECIFIED 04-18-2011 [facility] HYPOTENSION SERVICES 6820 CELLULITIS 04-18-2011 [facility] ABSCESS EMERGENCY OF FACE SERVICES 7088 OTHER 04-18-2011 [facility] P 7802 SYNCOPE AND 04-18-2011 [facility] COLLAPSE [facility]Y SERVICES 91335 ABDOMINAL 04-18-2011 [facility] EP[facility] V762 SCREENING 11-16-2010 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 5210 DENTAL 09-19-2010 THE [facility] CARIES & ORAL SURGERY C 5258 OTHER SPEC 09-19-2010 THE IMPLANT DISORDERS & ORAL TEETH&SUPPO SURGERY C RTING STRUCTURES 04100 OTHER 05-25-2010 [facility] OLOGYAS 72534 OTHER SPEC 05-25-2010 [facility] WITHOUT OLOGYAS MENTION HEMORRHAGE 54402 ESOPHAGEAL 05-24-2010 [facility] REFLUX GASTROENTER OLOGYAS 04938 LOSS OF 05-24-2010 [facility] WEIGHT GASTROENTER OLOGYAS 7871 HEARTBURN 05-24-2010 [facility]ENTER OLOGYAS 90141 NONSPECIFIC 05-20-2010 [facility] IOGRAM 3670 HYPERMETROP 03-15-2009 SHEWMAKER FERNANDEZ JESSICA COD 87937 DIARRHEA 01-14-2009 [facility] 47926 UNSPECIFIED 01-14-2009 [facility] 6929 CONTACT 09-07-2008 ARNOLD, DERMATITIS& VLAD W OTHER ECZEMA DUE UNSPEC CAUSE 4659 ACUTE URIS 07-01-2008 [facility] 7881 DYSURIA 07-01-2008 [facility] [employer] I89.0 LYMPHEDEMA, NOT ELSEWHERE CLASSIFIED L03.90 CELLULITIS, UNSPECIFIED M48.02 SPINAL STENOSIS, CERVICAL REGION M99.81 OTHER BIOMECHANIC AL LESIONS OF CERVICAL REGION R79.89 OTHER SPECIFIED ABNORMAL FINDINGS OF BLOOD CHEMISTRY S00.83XA CONTUSION OF OTHER PART OF HEAD, INITIAL ENCOUNTER S61.209A UNSP OPEN WOUND OF UNSP FINGER W/O DAMAGE TO NAIL, INIT Z88.0 ALLERGY STATUS TO PENICILLIN Z88.2 ALLERGY STATUS TO SULFONAMIDE S STATUS Allergies, Adverse Reactions, Alerts Clinical Alert Notifications Alert Diabetes: no A1C in the last 6 months Diabetes: no eye exam in the last 365 days Diabetes: no influenza vaccine in the last 365 days Medications Na ND Rx Da Fi Fi Am Da Di Ph RX Ph St me C No te ll ll ou ys ag ar # ys at s nt no ma ic us Or Da si cy ia de te s n re d LO 00 09 10 30 30 00 ME Ac RA 78 -1 -1 .0 00 D ti TA 15 2- 3- 00 14 CA ve DI 07 20 20 92 RE NE 70 17 17 53 1 98 PH 10 AR MA MG CY TA BL ET RO 00 08 09 47 15 00 ME Ac BA 90 -2 -2 3. 00 D ti FE 40 4- 2- 00 14 CA ve N- 05 20 20 0 83 RE DM 31 17 17 29 6 44 PH SY AR RU MA P CY LO 00 07 08 30 30 00 ME Ac RA 78 -0 -0 .0 00 D ti TA 15 7- 4 00 14 CA ve DI 07 20 20 53 RE NE 70 17 17 76 1 55 PH 10 AR MA MG CY TA BL ET MA 00 06 07 60 30 00 ME Ac PA 90 -2 -2 .0 00 D ti P 41 6- 8- 00 14 CA ve 50 98 20 20 47 RE 0 86 17 17 01 MG 1 18 PH AR TA MA BL CY ET LO 00 06 07 10 10 00 ME Ac RA 78 -2 -2 .0 00 D ti TA 15 2- 1- 00 14 CA ve DI 07 20 20 45 RE NE 70 17 17 18 1 91 PH 10 AR MA MG CY TA BL ET LO 00 06 07 30 30 00 ME Ac RA 78 -0 -0 .0 00 D ti TA 15 9 7 00 14 CA ve DI 07 20 20 36 RE NE 70 17 17 59 1 32 PH 10 AR MA MG CY TA BL ET RO 00 06 07 47 15 00 ME Ac BA 90 -1 -0 3. 00 D ti FE 40 2- 7- 00 14 CA ve N- 05 20 20 0 38 RE DM 31 17 17 38 6 13 PH SY AR RU MA P CY LO 00 05 06 30 30 00 ME Ac RA 78 -1 -0 .0 00 D ti TA 15 2 2- 00 14 CA ve DI 07 20 20 18 RE NE 70 17 17 35 1 58 PH 10 AR MA MG CY TA BL ET LO 45 04 05 14 14 00 ME Ac RA 80 -2 -1 .0 00 D ti TA 20 6- 9 00 14 CA ve DI 65 20 20 10 RE NE 08 17 17 91 7 31 PH 10 AR MA MG CY TA BL ET LO 00 04 05 30 30 00 ME Ac RA 78 -1 -0 .0 00 D ti TA 15 4- 5- 00 14 CA ve DI 07 20 20 04 RE NE 70 17 17 54 1 81 PH 10 AR MA MG CY TA BL ET AC 00 04 04 35 3 00 ME Ac ID 90 -0 -2 5. 00 D ti 47 4- 8- 00 13 CA ve GO 72 20 20 0 99 RE NE 71 17 17 75 4 62 PH AN AR TA MA CI CY D LI QU ID LO 00 03 04 30 30 00 ME Ac RA 78 -1 -0 .0 00 D ti TA 15 7- 7- 00 13 CA ve DI 07 20 20 90 RE NE 70 17 17 65 1 58 PH 10 AR MA MG CY TA BL ET MA 00 02 03 60 30 00 ME Ac PA 90 -1 -1 .0 00 D ti P 41 1- 0- 00 13 CA ve 50 98 20 20 74 RE 0 86 17 17 19 MG 1 63 PH AR TA MA BL CY ET LO 00 02 02 30 30 00 ME Ac RA 78 -0 -2 .0 00 D ti TA 15 1- 4- 00 13 CA ve DI 07 20 20 68 RE NE 70 17 17 72 1 73 PH 10 AR MA MG CY TA BL ET RO 00 01 02 47 15 00 ME Ac BA 90 -3 -2 3. 00 D ti FE 40 1- 4- 00 13 CA ve N- 05 20 20 0 67 RE DM 31 17 17 94 6 76 PH SY AR RU MA P CY RO 00 01 02 47 15 00 ME Ac BA 90 -0 -1 3. 00 D ti FE 40 9- 0- 00 13 CA ve N- 05 20 20 0 57 RE DM 31 17 17 40 6 87 PH SY AR RU MA P CY LL C LO 00 01 02 30 30 00 ME Ac RA 78 -0 -0 .0 00 D ti TA 15 2- 3- 00 13 CA ve DI 07 20 20 52 RE NE 70 17 17 98 1 69 PH 10 AR MA MG CY TA LL BL C ET RO 00 12 01 36 5 00 ME Ac BA 90 -2 -2 0. 00 D ti FE 40 6- 0- 00 13 CA ve N- 05 20 20 0 50 RE DM 31 16 17 21 6 79 PH SY AR RU MA P CY LL C DO 00 05 04 0 30 30 ME 11 AR Ac CU 53 -0 -2 0. D 20 NO ti SA 63 9- 4- 00 CA 82 LD ve TE 75 20 20 0 RE 09 71 14 15 RI SO 0 PH CH DI AR AR UM MA D CY W 25 0 LL MG C CA PS UL E LO 45 04 04 0 30 30 ME 11 AR Ac RA 80 -1 -1 0. D 16 NO ti TA 20 2- 1- 00 CA 91 LD ve DI 65 20 20 0 RE 94 NE 08 14 15 RI 7 PH CH 10 AR AR MA D MG CY W TA LL BL C ET DO 00 05 03 0 30 30 ME 11 AR Ac CU 53 -0 -2 0. D 11 NO ti SA 63 9- 5- 00 CA 55 LD ve TE 75 20 20 0 RE 01 71 14 15 RI SO 0 PH CH DI AR AR UM MA D CY W 25 0 LL MG C CA PS UL E LO 45 04 03 0 30 30 ME 11 AR Ac RA 80 -1 -1 0. D 07 NO ti TA 20 2- 3- 00 CA 98 LD ve DI 65 20 20 0 RE 26 NE 08 14 15 RI 7 PH CH 10 AR AR MA D MG CY W TA LL BL C ET DO 00 05 02 0 30 30 ME 11 AR Ac CU 53 -0 -2 0. D 01 NO ti SA 63 9- 3- 00 CA 09 LD ve TE 75 20 20 0 RE 01 71 14 15 RI SO 0 PH CH DI AR AR UM MA D CY W 25 0 LL MG C CA PS UL E LO 45 04 02 0 30 30 ME 10 AR Ac RA 80 -1 -1 0. D 98 NO ti TA 20 2- 2- 00 CA 14 LD ve DI 65 20 20 0 RE 92 NE 08 14 15 RI 7 PH CH 10 AR AR MA D MG CY W TA LL BL C ET LO 45 04 01 0 30 30 ME 10 AR Ac RA 80 -1 -1 0. D 88 NO ti TA 20 2- 3- 00 CA 89 LD ve DI 65 20 20 0 RE 21 NE 08 14 15 RI 7 PH CH 10 AR AR MA D MG CY W TA LL BL C ET DO 00 05 12 0 30 30 ME 10 AR Ac CU 53 -0 -2 0. D 84 NO ti SA 63 9- 9- 00 CA 00 LD ve TE 75 20 20 0 RE 12 71 14 14 RI SO 0 PH CH DI AR AR UM MA D CY W 25 0 LL MG C CA PS UL E LO 45 04 12 0 30 30 ME 10 AR Ac RA 80 -1 -1 0. D 79 NO ti TA 20 2- 5- 00 CA 89 LD ve DI 65 20 20 0 RE 75 NE 08 14 14 RI 7 PH CH 10 AR AR MA D MG CY W TA LL BL C ET DO 00 05 11 0 30 30 ME 10 AR Ac CU 53 -0 -2 0. D 75 NO ti SA 63 9- 9- 00 CA 22 LD ve TE 75 20 20 0 RE 39 71 14 14 RI SO 0 PH CH DI AR AR UM MA D CY W 25 0 LL MG C CA PS UL E LO 45 04 11 0 30 30 ME 10 AR Ac RA 80 -1 -1 0. D 70 NO ti TA 20 2- 4- 00 CA 39 LD ve DI 65 20 20 0 RE 83 NE 08 14 14 RI 7 PH CH 10 AR AR MA D MG CY W TA LL BL C ET AC 00 05 11 0 35 30 ME 10 AR Ac ID 90 -0 -1 50 D 70 NO ti 47 9- 3- .0 CA 24 LD ve GO 72 20 20 00 RE 67 NE 71 14 14 RI 4 PH CH AN AR AR TA MA D CI CY W D LI LL QU C ID DO 00 05 10 0 30 30 ME 10 AR Ac CU 53 -0 -3 0. D 66 NO ti SA 63 9- 1- 00 CA 06 LD ve TE 75 20 20 0 RE 89 71 14 14 RI SO 0 PH CH DI AR AR UM MA D CY W 25 0 LL MG C CA PS UL E LO 45 04 10 0 30 30 ME 10 AR Ac RA 80 -1 -1 0. D 61 NO ti TA 20 2- 6- 00 CA 59 LD ve DI 65 20 20 0 RE 63 NE 08 14 14 RI 7 PH CH 10 AR AR MA D MG CY W TA LL BL C ET RO 00 05 10 0 36 3 ME 10 AR Ac BA 90 -0 -1 00 D 61 NO ti FE 40 9- 5- .0 CA 77 LD ve N- 05 20 20 00 RE 27 DM 31 14 14 RI 6 PH CH SY AR AR RU MA D P CY W LL C DI 00 07 10 0 20 30 ME 10 AR Ac PH 60 -0 -0 0. D 58 NO ti EN 33 8- 6- 00 CA 84 LD ve HY 33 20 [address] 93 14 14 RI AM 2 PH CH IN AR AR E MA D 25 CY W MG LL C CA PS UL E DO 00 05 10 0 30 30 ME 10 AR Ac CU 53 -0 -0 0. D 56 NO ti SA 63 9- 3- 00 CA 90 LD ve TE 75 20 20 0 RE 98 71 14 14 RI SO 0 PH CH DI AR AR UM MA D CY W 25 0 LL MG C CA PS UL E RO 00 05 09 0 36 3 ME 10 AR Ac BA 90 -0 -2 00 D 55 NO ti FE 40 9- 6- .0 CA 05 LD ve N- 05 20 20 00 RE 15 DM 31 14 14 RI 6 PH CH SY AR AR RU MA D P CY W LL C LO 45 04 09 0 30 30 ME 10 AR Ac RA 80 -1 -1 0. D 52 NO ti TA 20 2- 8- 00 CA 52 LD ve DI 65 20 20 0 RE 42 NE 08 14 14 RI 7 PH CH 10 AR AR MA D MG CY W TA LL BL C ET MA 00 05 09 0 60 15 ME 10 AR Ac PA 90 -0 -1 0. D 52 NO ti P 41 9- 7- 00 CA 33 LD ve 50 98 20 20 0 RE 85 0 86 14 14 RI MG 1 PH CH AR AR TA MA D BL CY W ET LL C DO 00 05 09 0 30 30 ME 10 AR Ac CU 53 -0 -0 0. D 48 NO ti SA 63 9- 5- 00 CA 49 LD ve TE 75 20 20 0 RE 50 71 14 14 RI SO 0 PH CH DI AR AR UM MA D CY W 25 0 LL MG C CA PS UL E LO 45 04 08 0 30 30 ME 10 AR Ac RA 80 -1 -2 0. D 43 NO ti TA 20 2- 1- 00 CA 82 LD ve DI 65 20 20 0 RE 20 NE 08 14 14 RI 7 PH CH 10 AR AR MA D MG CY W TA LL BL C ET DO 00 05 08 0 30 30 ME 10 AR Ac CU 53 -0 -0 0. D 39 NO ti SA 63 9- 8- 00 CA 59 LD ve TE 75 20 20 0 RE 57 71 14 14 RI SO 0 PH CH DI AR AR UM MA D CY W 25 0 LL MG C CA PS UL E LO 45 04 07 0 30 30 ME 10 AR Ac RA 80 -1 -2 0. D 34 NO ti TA 20 2- 4- 00 CA 90 LD ve DI 65 20 20 0 RE 62 NE 08 14 14 RI 7 PH CH 10 AR AR MA D MG CY W TA LL BL C ET DO 00 05 07 0 30 30 ME 10 AR Ac CU 53 -0 -1 0. D 31 NO ti SA 63 9- 1- 00 CA 02 LD ve TE 75 20 20 0 RE 75 71 14 14 RI SO 0 PH CH DI AR AR UM MA D CY W 25 0 LL MG C CA PS UL E LO 45 04 06 0 30 30 ME 10 AR Ac RA 80 -1 -2 0. D 25 NO ti TA 20 2- 5- 00 CA 85 LD ve DI 65 20 20 0 RE 30 NE 08 14 14 RI 7 PH CH 10 AR AR MA D MG CY W TA LL BL C ET DO 00 05 06 0 30 30 ME 10 AR Ac CU 53 -0 -1 0. D 21 NO ti SA 63 9- 2- 00 CA 99 LD ve TE 75 20 20 0 RE 47 71 14 14 RI SO 0 PH CH DI AR AR UM MA D CY W 25 0 LL MG C CA PS UL E RO 00 05 05 0 36 3 ME 10 AR Ac BA 90 -0 -3 00 D 18 NO ti FE 40 9- 0- .0 CA 46 LD ve N- 05 20 20 00 RE 48 DM 31 14 14 RI 6 PH CH SY AR AR RU MA D P CY W LL C LO 45 04 05 0 30 30 ME 10 AR Ac RA 80 -1 -2 0. D 17 NO ti TA 20 2- 8- 00 CA 40 LD ve DI 65 20 20 0 RE 90 NE 08 14 14 RI 7 PH CH 10 AR AR MA D MG CY W TA LL BL C ET DO 00 05 05 0 30 30 ME 10 AR Ac CU 53 -0 -1 0. D 12 NO ti SA 63 9- 4- 00 CA 04 LD ve TE 75 20 20 0 RE 89 71 14 14 RI SO 0 PH CH DI AR AR UM MA D CY W 25 0 LL MG C CA PS UL E LO 45 04 05 0 30 30 ME 10 AR Ac RA 80 -1 -0 0. D 07 NO ti TA 20 2- 1- 00 CA 98 LD ve DI 65 20 20 0 RE 99 NE 08 14 14 RI 7 PH CH 10 AR AR MA D MG CY W TA LL BL C ET DO 00 05 04 0 30 30 ME 10 AR Ac CU 53 -0 -1 0. D 01 NO ti SA 63 9- 4- 00 CA 08 LD ve TE 75 20 20 0 RE 42 71 13 14 RI SO 0 PH CH DI AR AR UM MA D CY W 25 0 LL MG C CA PS UL E LO 45 04 04 0 30 30 ME 99 AR Ac RA 80 -1 -0 0. D 74 NO ti TA 20 2- 1- 00 CA 80 LD ve DI 65 20 20 0 RE 7 NE 08 13 14 RI 7 PH CH 10 AR AR MA D MG CY W TA LL BL C ET DO 00 05 03 0 30 30 ME 99 AR Ac CU 53 -0 -1 0. D 27 NO ti SA 63 9- 7- 00 CA 64 LD ve TE 75 20 20 0 RE 4 71 13 14 RI SO 0 PH CH DI AR AR UM MA D CY W 25 0 LL MG C CA PS UL E LO 45 04 03 0 14 14 ME 98 AR Ac RA 80 -1 -0 0. D 79 NO ti TA 20 2- 3- 00 CA 54 LD ve DI 65 20 20 0 RE 4 NE 08 13 14 RI 7 PH CH 10 AR AR MA D MG CY W TA LL BL C ET LO 45 04 02 0 30 30 ME 97 AR Ac RA 80 -1 -0 0. D 92 NO ti TA 20 2- 1- 00 CA 52 LD ve DI 65 20 20 0 RE 7 NE 08 13 14 RI 7 PH CH 10 AR AR MA D MG CY W TA LL BL C ET DO 00 05 01 0 30 30 ME 97 AR Ac CU 53 -0 -3 0. D 85 NO ti SA 63 9- 0- 00 CA 45 LD ve TE 75 20 20 0 RE 8 71 13 14 RI SO 0 PH CH DI AR AR UM MA D CY W 25 0 LL MG C CA PS UL E AC 37 05 01 0 60 15 ME 97 AR Ac ET 86 -0 -1 0. D 36 NO ti AM 40 9- 4- 00 CA 86 LD ve IN 00 20 20 0 RE 6 OP 10 13 14 RI HE 4 PH CH N AR AR 50 MA D 0 CY W MG LL TA C BL ET LO 45 04 01 0 30 30 ME 97 AR Ac RA 80 -1 -0 0. D 03 NO ti TA 20 2- 3- 00 CA 40 LD ve DI 65 20 20 0 RE 2 NE 08 13 14 RI 7 PH CH 10 AR AR MA D MG CY W TA LL BL C ET DO 00 05 12 0 30 30 ME 96 AR Ac CU 53 -0 -3 0. D 95 NO ti SA 63 9- 1- 00 CA 26 LD ve TE 75 20 20 0 RE 6 71 13 13 RI SO 0 PH CH DI AR AR UM MA D CY W 25 0 LL MG C CA PS UL E LO 45 12 12 0 10 10 ME 96 AR Ac RA 80 -0 -0 0. D 26 NO ti TA 20 9- 9- 00 CA 80 LD ve DI 65 20 20 0 RE 8 NE 08 13 13 RI 7 PH CH 10 AR AR MA D MG CY W TA LL BL C ET DO 00 12 12 0 10 10 ME 96 AR Ac CU 53 -0 -0 0. D 26 NO ti SA 63 9- 9- 00 CA 80 LD ve TE 75 20 20 0 RE 3 71 13 13 RI SO 0 PH CH DI AR AR UM MA D CY W 25 0 LL MG C CA PS UL E LO 45 04 12 0 30 30 ME 96 AR Ac RA 80 -1 -0 0. D 13 NO ti TA 20 2- 5- 00 CA 71 LD ve DI 65 20 20 0 RE 0 NE 08 13 13 RI 7 PH CH 10 AR AR MA D MG CY W TA LL BL C ET DO 00 05 12 0 30 30 ME 96 AR Ac CU 53 -0 -0 0. D 00 NO ti SA 63 9- 2- 00 CA 06 LD ve TE 75 20 20 0 RE 5 71 13 13 RI SO 0 PH CH DI AR AR UM MA D CY W 25 0 LL MG C CA PS UL E AC 00 05 11 0 35 30 ME 95 AR Ac ID 90 -0 -0 50 D 44 NO ti 47 9- 9- .0 CA 32 LD ve GO 72 20 20 00 RE 0 NE 71 13 13 RI 4 PH CH AN AR AR TA MA D CI CY W D LI LL QU C ID LO 45 04 11 0 30 30 ME 95 AR Ac RA 80 -1 -0 0. D 30 NO ti TA 20 2- 6- 00 CA 80 LD ve DI 65 20 20 0 RE 8 NE 08 13 13 RI 7 PH CH 10 AR AR MA D MG CY W TA LL BL C ET DO 00 05 11 0 30 30 ME 95 AR Ac CU 53 -0 -0 0. D 15 NO ti SA 63 9- 1- 00 CA 85 LD ve TE 75 20 20 0 RE 0 71 13 13 RI SO 0 PH CH DI AR AR UM MA D CY W 25 0 LL MG C CA PS UL E AC 37 05 10 0 60 15 ME 94 AR Ac ET 86 -0 -1 0. D 58 NO ti AM 40 9- 1- 00 CA 64 LD ve IN 00 20 20 0 RE 6 OP 10 13 13 RI HE 4 PH CH N AR AR 50 MA D 0 CY W MG LL TA C BL ET LO 45 04 10 0 30 30 ME 94 AR Ac RA 80 -1 -0 0. D 42 NO ti TA 20 2- 7- 00 CA 31 LD ve DI 65 20 20 0 RE 6 NE 08 13 13 RI 7 PH CH 10 AR AR MA D MG CY W TA LL BL C ET DO 00 05 10 0 30 30 ME 94 AR Ac CU 53 -0 -0 0. D 34 NO ti SA 63 9- 3- 00 CA 44 LD ve TE 75 20 20 0 RE 2 71 13 13 RI SO 0 PH CH DI AR AR UM MA D CY W 25 0 LL MG C CA PS UL E LO 45 04 09 0 30 30 ME 93 AR Ac RA 80 -1 -0 0. D 62 NO ti TA 20 2- 6- 00 CA 49 LD ve DI 65 20 20 0 RE 6 NE 08 13 13 RI 7 PH CH 10 AR AR MA D MG CY W TA LL BL C ET DO 00 05 09 0 30 30 ME 93 AR Ac CU 53 -0 -0 0. D 49 NO ti SA 63 9- 3- 00 CA 74 LD ve TE 75 20 20 0 RE 7 71 13 13 RI SO 0 PH CH DI AR AR UM MA D CY W 25 0 LL MG C CA PS UL E RO 00 05 08 0 36 3 ME 93 AR Ac BA 90 -0 -2 00 D 27 NO ti FE 40 9- 3- .0 CA 74 LD ve N- 05 20 20 00 RE 5 DM 31 13 13 RI 6 PH CH SY AR AR RU MA D P CY W LL C LO 45 04 08 0 30 30 ME 92 AR Ac RA 80 -1 -0 0. D 85 NO ti TA 20 2- 8- 00 CA 00 LD ve DI 65 20 20 0 RE 5 NE 08 13 13 RI 7 PH CH 10 AR AR MA D MG CY W TA LL BL C ET DO 00 05 08 0 30 30 ME 92 AR Ac CU 53 -0 -0 0. D 79 NO ti SA 63 9- 6- 00 CA 92 LD ve TE 75 20 20 0 RE 0 71 13 13 RI SO 0 PH CH DI AR AR UM MA D CY W 25 0 LL MG C CA PS UL E DO 00 05 07 0 30 30 ME 92 AR Ac CU 53 -0 -0 0. D 05 NO ti SA 63 9- 9- 00 CA 85 LD ve TE 75 20 20 0 RE 2 71 13 13 RI SO 0 PH CH DI AR AR UM MA D CY W 25 0 LL MG C CA PS UL E LO 45 04 07 0 30 30 ME 92 AR Ac RA 80 -1 -0 0. D 05 NO ti TA 20 2- 9- 00 CA 85 LD ve DI 65 20 20 0 RE 7 NE 08 13 13 RI 7 PH CH 10 AR AR MA D MG CY W TA LL BL C ET DI 00 07 07 0 20 30 ME 92 AR Ac PH 60 -0 -0 0. D 03 NO ti EN 33 8- 8- 00 CA 55 LD ve HY 33 20 [address] 93 13 13 RI AM 2 PH CH IN AR AR E MA D 25 CY W MG LL C CA PS UL E AC 37 05 07 0 60 15 ME 91 AR Ac ET 86 -0 -0 0. D 91 NO ti AM 40 9- 2- 00 CA 78 LD ve IN 00 20 20 0 RE 2 OP 10 13 13 RI HE 4 PH CH N AR AR 50 MA D 0 CY W MG LL TA C BL ET LO 45 04 06 0 30 30 ME 91 AR Ac RA 80 -1 -0 0. D 28 NO ti TA 20 2- 7- 00 CA 96 LD ve DI 65 20 20 0 RE 3 NE 08 13 13 RI 7 PH CH 10 AR AR MA D MG CY W TA LL BL C ET DO 00 05 06 0 30 30 ME 91 AR Ac CU 53 -0 -0 0. D 28 NO ti SA 63 9- 7- 00 CA 95 LD ve TE 75 20 20 0 RE 8 71 13 13 RI SO 0 PH CH DI AR AR UM MA D CY W 25 0 LL MG C CA PS UL E DO 00 10 05 0 30 30 ME 90 AR Ac CU 53 -1 -0 0. D 56 NO ti SA 63 5- 9- 00 CA 92 LD ve TE 75 20 20 0 RE 0 71 12 13 RI SO 0 PH CH DI AR AR UM MA D CY W 25 0 LL MG C CA PS UL E LO 45 04 05 0 30 30 ME 90 AR Ac RA 80 -1 -0 0. D 56 NO ti TA 20 2- 9- 00 CA 92 LD ve DI 65 20 20 0 RE 5 NE 08 13 13 RI 7 PH CH 10 AR AR MA D MG CY W TA LL BL C ET Q- 00 11 02 0 11 2 ME 88 AR Ac TU 60 -0 -2 80 D 88 NO ti SS 30 7- 8- .0 CA 51 LD ve IN 85 20 20 00 RE 1 59 11 13 RI DM 4 PH CH AR AR SY MA D RU CY W P LL C Q- 00 11 02 0 11 2 ME 88 AR Ac TU 60 -0 -1 80 D 60 NO ti SS 30 7- 8- .0 CA 58 LD ve IN 85 20 20 00 RE 5 59 11 13 RI DM 4 PH CH AR AR SY MA D RU CY W P LL C DO 00 10 02 0 30 30 ME 88 AR Ac CU 53 -1 -0 0. D 38 NO ti SA 63 5- 8- 00 CA 10 LD ve TE 75 20 20 0 RE 6 71 12 13 RI SO 0 PH CH DI AR AR UM MA D CY W 25 0 LL MG C CA PS UL E Q- 00 11 02 0 11 2 ME 88 AR Ac TU 60 -0 -0 80 D 35 NO ti SS 30 7- 7- .0 CA 66 LD ve IN 20 20 00 RE 2 59 11 13 RI DM 4 PH CH AR AR SY LANDEN D RU CY W P LL C Q- 00 11 01 0 11 2 ME 88 AR Ac TU 60 -0 -2 80 D 07 NO ti SS 30 7- 6- .0 CA 41 LD ve IN 20 20 00 RE 1 59 11 13 RI DM 4 PH CH AR AR SY LANDEN D RU CY W P LL C Q- 00 11 01 0 11 2 ME 87 AR Ac TU 60 -0 -2 80 D 91 NO ti SS 30 7- 1- .0 CA 15 LD ve IN 20 20 00 RE 4 59 11 13 RI DM 4 PH CH AR AR SY LANDEN D RU CY W P LL C Q- 00 11 01 0 11 2 ME 87 AR Ac TU 60 -0 -1 80 D 74 NO ti SS 30 7- 4- .0 CA 57 LD ve IN 20 20 00 RE 1 59 11 13 RI DM 4 PH CH AR AR SY LANDEN D RU CY W P LL C DO 00 10 01 0 30 30 ME 87 AR Ac CU 53 -1 -1 0. D 65 NO ti SA 63 5- 0- 00 CA 75 LD ve TE 75 20 20 0 RE 7 71 12 13 RI SO 0 PH CH DI AR AR UM LANDEN D CY W 25 0 LL MG C CA PS UL E Q- 00 11 01 0 11 2 ME 87 AR Ac TU 60 -0 -0 80 D 50 NO ti SS 30 7- 3- .0 CA 18 LD ve IN 20 20 00 RE 4 59 11 13 RI DM 4 PH CH AR AR SY LANDEN D RU CY W P LL C MA 00 11 01 0 60 15 ME 87 AR Ac PA 90 -0 -0 0. D 47 NO ti P 41 7- 2- 00 CA 73 LD ve 50 98 20 20 0 RE 9 0 86 11 13 RI MG 1 PH CH AR AR TA MA D BL CY W ET LL C Q- 00 11 12 0 11 2 ME 86 AR Ac TU 60 -0 -1 80 D 99 NO ti SS 30 7- 2- .0 CA 09 LD ve IN 20 20 00 RE 7 59 11 12 RI DM 4 PH CH AR AR SY MA D RU CY W P LL C DO 00 10 12 0 30 30 ME 86 AR Ac CU 53 -1 -1 0. D 98 NO ti SA 63 5- 2- 00 CA 32 LD ve TE 75 20 20 0 RE 9 71 12 12 RI SO 0 PH CH DI AR AR UM MA D CY W 25 0 LL MG C CA PS UL E Q- 00 11 12 0 11 2 ME 86 AR Ac TU 60 -0 -0 80 D 86 NO ti SS 30 7- 6- .0 CA 08 LD ve IN 85 20 20 00 RE 0 59 11 12 RI DM 4 PH CH AR AR SY MA D RU CY W P LL C Q- 00 11 11 0 11 2 ME 86 AR Ac TU 60 -0 -2 80 D 59 NO ti SS 30 7- 6- .0 CA 65 LD ve IN 85 20 20 00 RE 4 59 11 12 RI DM 4 PH CH AR AR SY MA D RU CY W P LL C LO 00 11 11 0 21 7 ME 86 AR Ac RA 59 -2 -2 0. D 62 NO ti ZE 10 6- 6- 00 CA 65 LD ve PA 24 20 20 0 RE 7 M 01 12 12 RI 0. 0 PH CH 5 AR AR MG MA D CY W TA BL LL ET C DO 00 10 11 0 30 30 ME 86 AR Ac CU 53 -1 -1 0. D 06 NO ti SA 63 5- 2- 00 CA 69 LD ve TE 75 20 20 0 RE 3 71 12 12 RI SO 0 PH CH DI AR AR UM MA D CY W 25 0 LL MG C CA PS UL E Q- 00 11 10 0 11 2 ME 85 AR Ac TU 60 -0 -2 80 D 67 NO ti SS 30 7- 9- .0 CA 37 LD ve IN 85 20 20 00 RE 8 59 11 12 RI DM 4 PH CH AR AR SY MA D RU CY W P LL C DO 00 10 10 0 30 30 ME 85 AR Ac CU 53 -1 -1 0. D 18 NO ti SA 63 5- 5- 00 CA 96 LD ve TE 75 20 20 0 RE 9 71 12 12 RI SO 0 PH CH DI AR AR UM MA D CY W 25 0 LL MG C CA PS UL E MA 00 11 10 0 60 15 ME 84 AR Ac PA 90 -0 -0 0. D 66 NO ti P 41 7- 1- 00 CA 36 LD ve 50 98 20 20 0 RE 9 0 86 11 12 RI MG 1 PH CH AR AR TA MA D BL CY W ET LL C Q- 00 11 09 0 11 2 ME 84 AR Ac TU 60 -0 -2 80 D 38 NO ti SS 30 7- 2- .0 CA 06 LD ve IN 85 20 20 00 RE 8 59 11 12 RI DM 4 PH CH AR AR SY MA D RU CY W P LL C AC 00 11 09 0 35 1 ME 84 AR Ac ID 90 -0 -1 50 D 12 NO ti 47 7- 4- .0 CA 94 LD ve GO 72 20 20 00 RE 4 NE 71 11 12 RI 4 PH CH AN AR AR TA MA D CI CY W D LI LL QU C ID MA 00 11 07 0 60 15 ME 18 AR Ac PA 90 -0 -2 0. D 16 NO ti P 41 7- 8- 00 CA 77 LD ve 50 98 20 20 0 RE 0 86 11 12 RI MG 1 PH CH AR AR TA MA D BL CY W ET LL C 00 11 07 0 11 2 ME 81 AR Ac 12 -0 -2 80 D 89 NO ti 10 7- 0- .0 CA 57 LD ve 63 20 20 00 RE 6 80 11 12 RI 4 PH CH AR AR MA D CY W LL C AC 00 11 05 0 35 1 ME 79 AR Ac ID 90 -0 -0 50 D 47 NO ti 47 7- 7- .0 CA 72 LD ve GO 72 20 20 00 RE 6 NE 71 11 12 RI 4 PH CH AN AR AR TA MA D CI CY W D LI LL QU C ID 00 11 03 0 11 0 ME 78 AR Ac 12 -0 -1 80 D 06 NO ti 10 7- 4- .0 CA 92 LD ve 63 20 20 00 RE 8 80 11 12 RI 4 PH CH AR AR MA D CY W LL C AC 00 11 02 0 35 0 ME 75 AR Ac ID 90 -0 -1 50 D 72 NO ti 47 7- 5- .0 CA 85 LD ve GO 72 20 20 00 RE 9 NE 71 11 12 RI 4 PH CH AN AR AR TA MA D CI CY W D LI LL QU C ID 00 11 01 0 11 0 ME 73 AR Ac 12 -0 -3 80 D 99 NO ti 10 7- 0- .0 CA 77 LD ve 63 20 20 00 RE 7 80 11 12 RI 4 PH CH AR AR MA D CY W LL C 00 11 01 0 11 0 ME 18 AR Ac 12 -0 -2 80 D 16 NO ti 10 7- 4- .0 CA 82 LD ve 63 20 20 00 RE 80 11 12 RI 4 PH CH AR AR MA D CY W LL C AC 00 11 12 0 35 1 ME 18 AR Ac ID 90 -0 -1 5. D 16 NO ti 47 7- 2- 00 CA 78 LD ve GO 72 20 20 0 RE NE 71 11 11 RI 4 PH CH AN AR AR TA MA D CI CY W D LI LL QU C ID LO 00 10 10 3 21 7 ME 60 AR Ac RA 59 -1 -1 .0 D 26 NO ti ZE 10 8- 8- 00 CA 92 LD ve PA 24 20 20 RE 2 M 01 11 11 RI 0. 0 PH CH 5 AR AR MG MA D CY W TA BL LL ET C 00 10 10 3 11 2 ME 60 AR Ac 12 -1 -1 8. D 26 NO ti 10 8- 8- 00 CA 90 LD ve 63 20 20 0 RE 5 80 11 11 RI 4 PH CH AR AR MA D CY W LL C AC 00 10 10 3 35 1 ME 60 AR Ac ID 90 -1 -1 5. D 26 NO ti 47 8- 8- 00 CA 89 LD ve GO 72 20 20 0 RE 2 NE 71 11 11 RI 4 PH CH AN AR AR TA MA D CI CY W D LI LL QU C ID MA 00 10 10 3 60 8 ME 60 AR Ac PA 90 -1 -1 .0 D 26 NO ti P 41 8- 8- 00 CA 87 LD ve 50 98 20 20 RE 9 0 86 11 11 RI MG 1 PH CH AR AR TA MA D BL CY W ET LL C MA 00 12 10 3 60 8 ME 51 AR Ac PA 90 -0 -1 .0 D 07 NO ti P 41 9- 3- 00 CA 25 LD ve 50 98 20 20 RE 2 0 86 10 11 RI MG 1 PH CH AR AR TA MA D BL CY W ET LL C CL 57 08 08 3 7. 7 ME 58 AR Ac ON 66 -1 -1 00 D 57 NO ti AZ 40 7- 7- 0 CA 43 LD ve EP 27 20 20 RE 7 AM 31 11 11 RI 8 PH CH 0. AR AR 5 MA D MG CY W TA LL BL C ET CL 00 08 08 3 12 6 ME 58 AR Ac ON 18 -1 -1 .0 D 09 NO ti AZ 50 2- 2- 00 CA 01 LD ve EP 06 20 20 RE 0 AM 31 11 11 RI 0 PH CH 0. AR AR 5 MA D MG CY W TA LL BL C ET CL 00 07 08 3 14 7 ME 57 AR Ac ON 18 -1 -0 .0 D 63 NO ti AZ 50 5- 5- 00 CA 99 LD ve EP 06 20 20 RE 5 AM 31 11 11 RI 0 PH CH 0. AR AR 5 MA D MG CY W TA LL BL C ET AC 00 06 08 3 35 3 ME 56 AR Ac ID 90 -0 -0 5. D 44 NO ti 47 6- 5- 00 CA 20 LD ve GO 72 20 20 0 RE 9 NE 71 11 11 RI 4 PH CH AN AR AR TA MA D CI CY W D LI QU C ID CL 00 07 07 3 14 7 ME 57 AR Ac ON 18 - -2 .0 D 63 NO ti AZ 50 5- 9- 00 CA 99 LD ve EP 06 20 20 RE 5 AM 31 11 11 RI 0 PH CH 0. AR AR 5 MA D MG CY W TA LL BL C ET CL 00 07 07 3 14 7 ME 57 AR Ac ON -2 .0 D 63 NO ti AZ 50 5- 2- 00 CA 99 LD ve EP 06 20 20 RE 5 AM 31 11 11 RI 0 PH CH 0. AR AR 5 MA D MG CY W TA LL BL C ET MA 00 12 07 3 60 8 ME 51 AR Ac PA 90 -0 -2 .0 D 07 NO ti P 41 9- 2- 00 CA 25 LD ve 50 98 20 20 RE 2 0 86 10 11 RI MG 1 PH CH AR AR TA MA D BL CY W ET LL C AC 00 06 07 3 35 3 ME 56 AR Ac ID 90 -0 -2 5. D 44 NO ti 47 6- 0- 00 CA 20 LD ve GO 72 20 20 0 RE 9 NE 71 11 11 RI 4 PH CH AN AR AR TA MA D CI CY W D LI LL QU C ID CL 00 07 07 3 14 7 ME 57 AR Ac ON 18 -1 -1 .0 D 63 NO ti AZ 50 5- 5- 00 CA 99 LD ve EP 06 20 20 RE 5 AM 31 11 11 RI 0 PH CH 0. AR AR 5 MA D MG CY W TA LL BL C ET AC 00 06 07 3 35 3 ME 56 AR Ac ID 90 -0 -0 5. D 44 NO ti 47 6- 4- 00 CA 20 LD ve GO 72 20 20 0 RE 9 NE 71 11 11 RI 4 PH CH AN AR AR TA MA D CI CY W D LI LL QU C ID LO 00 06 06 3 21 7 ME 56 AR Ac RA 59 -2 -2 .0 D 69 NO ti ZE 10 4- 4- 00 CA 57 LD ve PA 24 20 20 RE 3 M 01 11 11 RI 0. 0 PH CH 5 AR AR MG MA D CY W TA BL LL ET C LO 00 06 06 3 10 5 ME 56 AR Ac RA 59 -1 -1 .0 D 79 NO ti ZE 10 6- 6- 00 CA 30 LD ve PA 24 20 20 RE 9 M 01 11 11 RI 0. 0 PH CH 5 AR AR MG MA D CY W TA BL LL ET C LO 00 05 06 3 21 7 ME 55 AR Ac RA 59 -2 -1 .0 D 97 NO ti ZE 10 0- 0- 00 CA 69 LD ve PA 24 20 20 RE 5 M 01 11 11 RI 0. 0 PH CH 5 AR AR MG MA D CY W TA BL LL ET C AC 00 06 06 3 35 3 ME 56 AR Ac ID 90 -0 -0 5. D 44 NO ti 47 6- 6- 00 CA 20 LD ve GO 72 20 20 0 RE 9 NE 71 11 11 RI 4 PH CH AN AR AR TA MA D CI CY W D LI QU C ID LO 00 05 06 3 21 7 ME 55 AR Ac RA 59 -2 -0 .0 D 97 NO ti ZE 10 0- 3- 00 CA 69 LD ve PA 24 20 20 RE 5 M 01 11 11 RI 0. 0 PH CH 5 AR AR MG MA D CY W TA BL LL ET C LO 00 05 05 3 21 7 ME 55 AR Ac RA 59 -2 -2 .0 D 97 NO ti ZE 10 0- 7- 00 CA 69 LD ve PA 24 20 20 RE 5 M 01 11 11 RI 0. 0 PH CH 5 AR AR MG MA D CY W TA BL LL ET C LO 00 05 05 3 21 7 ME 55 AR Ac RA 59 -2 -2 .0 D 97 NO ti ZE 10 0- 0- 00 CA 69 LD ve PA 24 20 20 RE 5 M 01 11 11 RI 0. 0 PH CH 5 AR AR MG MA D CY W TA BL LL ET C AC 00 03 05 3 35 3 ME 53 AR Ac ID 90 -0 -1 5. D 71 NO ti 47 7- 8- 00 CA 63 LD ve GO 72 20 20 0 RE 6 NE 71 11 11 RI 4 PH CH AN AR AR TA MA D CI CY W D LI LL QU C ID AC 00 03 05 3 35 3 ME 53 AR Ac ID 90 -0 -0 5. D 71 NO ti 47 7- 6- 00 CA 63 LD ve GO 72 20 20 0 RE 6 NE 71 11 11 RI 4 PH CH AN AR AR TA MA D CI CY W D LI LL QU C ID LO 00 05 05 3 18 9 ME 55 AR Ac RA 59 -0 -0 .0 D 67 NO ti ZE 10 5- 5- 00 CA 28 LD ve PA 24 20 20 RE 9 M 01 11 11 RI 0. 0 PH CH 5 AR AR MG MA D CY W TA BL LL ET C MA 00 12 04 3 60 8 ME 51 AR Ac PA 90 -0 -1 .0 D 07 NO ti P 41 9- 8- 00 CA 25 LD ve 50 98 20 20 RE 2 0 86 10 11 RI MG 1 PH CH AR AR TA MA D BL CY W ET LL C 00 04 04 3 11 2 ME 54 AR Ac 12 -1 -1 8. D 99 NO ti 10 8- 8- 00 CA 02 LD ve 63 20 20 0 RE 5 80 11 11 RI 4 PH CH AR AR MA D CY W LL C LO 00 04 04 3 56 28 ME 54 AR Ac RA 59 -1 -1 .0 D 87 NO ti ZE 10 3- 3- 00 CA 50 LD ve PA 24 20 20 RE 1 M 01 11 11 RI 0. 0 PH CH 5 AR AR MG MA D CY W TA BL LL ET C AC 00 03 04 3 35 3 ME 53 AR Ac ID 90 -0 -0 5. D 71 NO ti 47 7- 8- 00 CA 63 LD ve GO 72 20 20 0 RE 6 NE 71 11 11 RI 4 PH CH AN AR AR TA MA D CI CY W D LI LL QU C ID LO 00 03 04 3 14 7 ME 54 AR Ac RA 59 -3 -0 .0 D 21 NO ti ZE 10 0- 6- 00 CA 03 LD ve PA 24 20 20 RE 1 M 01 11 11 RI 0. 0 PH CH 5 AR AR MG MA D CY W TA BL LL ET C LO 00 03 03 3 14 7 ME 54 AR Ac RA 59 -3 -3 .0 D 21 NO ti ZE 10 0- 0- 00 CA 03 LD ve PA 24 20 20 RE 1 M 01 11 11 RI 0. 0 PH CH 5 AR AR MG MA D CY W TA BL LL ET C LO 00 03 03 3 14 7 ME 53 AR Ac RA 59 -0 -2 .0 D 42 NO ti ZE 10 2- 3- 00 CA 00 LD ve PA 24 20 20 RE 0 M 01 11 11 RI 0. 0 PH CH 5 AR AR MG MA D CY W TA BL LL ET C LO 00 03 03 3 14 7 ME 53 AR Ac RA 59 -0 -1 .0 D 42 NO ti ZE 10 2- 6- 00 CA 00 LD ve PA 24 20 20 RE 0 M 01 11 11 RI 0. 0 PH CH 5 AR AR MG MA D CY W TA BL LL ET C LO 00 03 03 3 14 7 ME 53 AR Ac RA 59 -0 -0 .0 D 42 NO ti ZE 10 2- 9- 00 CA 00 LD ve PA 24 20 20 RE 0 M 01 11 11 RI 0. 0 PH CH 5 AR AR MG MA D CY W TA BL LL ET C AC 00 03 03 3 35 3 ME 53 AR Ac ID 90 -0 -0 5. D 71 NO ti 47 7- 7- 00 CA 63 LD ve GO 72 20 20 0 RE 6 NE 71 11 11 RI 4 PH CH AN AR AR TA MA D CI CY W D LI LL QU C ID LO 00 03 03 3 14 7 ME 53 AR Ac RA 59 -0 -0 .0 D 42 NO ti ZE 10 2- 2- 00 CA 00 LD ve PA 24 20 20 RE 0 M 01 11 11 RI 0. 0 PH CH 5 AR AR MG MA D CY W TA BL LL ET C AC 00 01 02 3 35 3 ME 52 AR Ac ID 90 -1 -2 5. D 23 NO ti 47 8- 8- 00 CA 26 LD ve GO 72 20 20 0 RE 7 NE 71 11 11 RI 4 PH CH AN AR AR TA MA D CI CY W D LI LL QU C ID LO 00 02 02 3 14 7 ME 52 AR Ac RA 59 -0 -2 .0 D 53 NO ti ZE 10 2- 3- 00 CA 17 LD ve PA 24 20 20 RE 7 M 01 11 11 RI 0. 0 PH CH 5 AR AR MG MA D CY W TA BL LL ET C LO 00 02 02 3 14 7 ME 52 AR Ac RA 59 -0 -1 .0 D 53 NO ti ZE 10 2- 6- 00 CA 17 LD ve PA 24 20 20 RE 7 M 01 11 11 RI 0. 0 PH CH 5 AR AR MG MA D CY W TA BL LL ET C AC 00 01 02 3 35 3 ME 52 AR Ac ID 90 -1 -1 5. D 23 NO ti 47 8- 1- 00 CA 26 LD ve GO 72 20 20 0 RE 7 NE 71 11 11 RI 4 PH CH AN AR AR TA MA D CI CY W D LI LL QU C ID LO 00 02 02 3 14 7 ME 52 AR Ac RA 59 -0 -0 .0 D 53 NO ti ZE 10 2- 9- 00 CA 17 LD ve PA 24 20 20 RE 7 M 01 11 11 RI 0. 0 PH CH 5 AR AR MG MA D CY W TA BL LL ET C LO 00 02 02 3 14 7 ME 52 AR Ac RA 59 -0 -0 .0 D 53 NO ti ZE 10 2- 2- 00 CA 17 LD ve PA 24 20 20 RE 7 M 01 11 11 RI 0. 0 PH CH 5 AR AR MG MA D CY W TA BL LL ET C AC 00 01 02 3 35 3 ME 52 AR Ac ID 90 -1 -0 5. D 23 NO ti 47 8- 1- 00 CA 26 LD ve GO 72 20 20 0 RE 7 NE 71 11 11 RI 4 PH CH AN AR AR TA MA D CI CY W D LI LL QU C ID NE 00 01 01 3 30 30 ME 52 AR Ac XI 18 -2 -2 .0 D 57 NO ti UM 65 8- 8- 00 CA 46 LD ve 04 [address] 22 11 11 RI 8 PH CH 40 AR AR MA D MG CY W CA LL PS C UL E SE 00 12 01 3 30 30 ME 50 AR Ac RO 31 -0 -2 .0 D 89 NO ti QU 00 3- 7- 00 CA 85 LD ve EL 28 20 20 RE 1 23 10 11 RI XR 9 PH CH AR AR 20 MA D 0 CY W MG LL TA C BL ET CI 00 01 01 3 30 30 ME 52 AR Ac TA 18 -2 -2 .0 D 54 NO ti LO 50 7- 7- 00 CA 76 LD ve WI 37 20 20 RE 5 AM 30 11 11 RI 1 PH CH HB AR AR R MA D 40 CY W MG LL C TA BL ET LO 00 01 01 3 14 7 ME 51 AR Ac RA 59 -0 -2 .0 D 89 NO ti ZE 10 7- 6- 00 CA 55 LD ve PA 24 20 20 RE 6 M 01 11 11 RI 0. 0 PH CH 5 AR AR MG MA D CY W TA BL LL ET C LO 00 01 01 3 14 7 ME 51 AR Ac RA 59 -0 -1 .0 D 89 NO ti ZE 10 7 9 CA 55 LD ve PA 24 20 20 RE 6 M 01 11 11 RI 0. 0 PH CH 5 AR AR MG MA D CY W TA BL LL ET C AC 00 01 01 3 35 3 ME 52 AR Ac ID 90 -1 -1 5. D 23 NO ti 47 8- 8- 00 CA 26 LD ve GO 72 20 20 0 RE 7 NE 71 11 11 RI 4 PH CH AN AR AR TA MA D CI CY W D LI LL QU C ID LO 00 01 01 3 14 7 ME 51 AR Ac RA 59 -0 -1 .0 D 89 NO ti ZE 10 7 2 CA 55 LD ve PA 24 20 20 RE 6 M 01 11 11 RI 0. 0 PH CH 5 AR AR MG MA D CY W TA BL LL ET C LO 00 01 01 3 12 6 ME 51 AR Ac RA 59 -0 -0 .0 D 89 NO ti ZE 10 CA 55 LD ve PA 24 20 20 RE 6 M 01 11 11 RI 0. 0 PH CH 5 AR AR MG MA D CY W TA BL LL ET C LE 00 12 12 3 30 30 ME 50 AR Ac XA 45 -3 -3 .0 D 90 NO ti WI 62 1- 1 CA 13 LD ve O 01 20 20 RE 5 10 06 10 10 RI 3 PH CH MG AR AR MA D TA CY W BL ET LL C LO 00 12 12 3 14 7 ME 51 AR Ac RA 59 -1 -3 .0 D 33 NO ti ZE 10 1 CA 72 LD ve PA 24 20 20 RE 9 M 01 10 10 RI 0. 0 PH CH 5 AR AR MG MA D CY W TA BL LL ET C SE 00 12 12 3 30 30 ME 50 AR Ac RO 31 -0 -3 .0 D 89 NO ti QU 00 3 1- CA 85 LD ve EL 28 20 20 RE 1 23 10 10 RI XR 9 PH CH AR AR 20 MA D 0 CY W MG LL TA C BL ET LO 00 12 12 3 14 7 ME 51 AR Ac RA 59 -1 -2 .0 D 33 NO ti ZE 10 8 4 CA 72 LD ve PA 24 20 20 RE 9 M 01 10 10 RI 0. 0 PH CH 5 AR AR MG MA D CY W TA BL LL ET C LO 00 12 12 3 14 7 ME 51 AR Ac RA 59 -1 -1 .0 D 33 NO ti ZE 10 8- 8 00 CA 72 LD ve PA 24 20 20 RE 9 M 01 10 10 RI 0. 0 PH CH 5 AR AR MG MA D CY W TA BL LL ET C BE 68 12 12 3 30 5 ME 51 AR Ac NZ 08 -1 -1 .0 D 33 NO ti TR 40 8- 8 00 CA 72 LD ve OP 38 20 20 RE 5 IN 80 10 10 RI E 1 PH CH ME AR AR S MA D 1 CY W MG LL TA C BL ET MA 00 12 12 3 60 5 ME 51 AR Ac PA 90 -0 -0 .0 D 07 NO ti P 41 9- 9 00 CA 25 LD ve 50 98 20 20 RE 2 0 86 10 10 RI MG 1 PH CH AR AR TA MA D BL CY W ET LL C SE 00 12 12 3 30 30 ME 50 AR Ac RO 31 -0 -0 .0 D 89 NO ti QU 00 3- 3- 00 CA 85 LD ve EL 28 20 20 RE 1 23 10 10 RI XR 9 PH CH AR AR 20 MA D 0 CY W MG LL TA C BL ET LE 00 12 12 3 30 30 ME 52 AR Ac XA 45 -0 -0 .0 D 75 NO ti WI 62 3- 3- 00 CA 51 LD ve O 02 20 20 RE 0 20 00 10 10 RI 1 PH CH MG AR AR MA D TA CY W BL ET LL C SHAHID 00 03 09 02 30 30 KR 67 AR Ac LO 37 -1 -1 .0 OG 89 NO ti PE 80 1- 0- 00 ER 35 LD ve RI 32 20 20 1 DO 70 09 09 PH RI L 1 AR CH 5 MA AR MG CY D W TA 14 BL 39 ET 2 CI 55 07 08 00 45 30 KR 68 CO Ac TA 11 -2 -2 .0 OG 20 OP ti LO 10 8- 7- 00 ER 21 ER ve WI 34 20 20 0 AM 40 09 09 PH LE 5 AR SL HB MA IE R CY M 40 14 MG 39 2 TA BL ET SHAHID 00 07 08 00 60 30 KR 68 No Ac LO 37 -2 -2 .0 OG 20 t ti PE 80 8- 7- 00 ER 21 Av ve RI 32 20 20 2 ai DO 70 09 09 PH la L 1 AR bl 5 MA e MG CY TA 14 BL 39 ET 2 DE 00 07 07 00 30 30 KR 67 GO Ac TR 00 -2 -3 .0 OG 99 LD ti OL 95 4- 0- 00 ER 12 EN ve 19 20 20 4 BE LA 10 09 09 PH RG 4 1 AR MA MG CY AN CA 14 A PS 39 I UL 2 E DI 00 07 07 00 90 30 KR 67 GO Ac CY 59 -2 -3 .0 OG 99 LD ti CL 10 4- 0- 00 ER 12 EN ve OM 79 20 20 5 BE IN 50 09 09 PH RG E 1 AR 20 MA CY MG AN 14 A TA 39 I BL 2 ET CI 55 03 07 01 30 30 KR 67 SHAHID Ac TA 11 -2 -3 .0 OG 89 YA ti LO 10 0- 0- 00 ER 35 G- ve WI 34 20 20 0 TH AM 40 09 09 PH OM 5 AR HB MA R CY LE 40 A 14 MG 39 2 TA BL ET SHAHID 00 03 07 01 30 30 KR 67 AR Ac LO 37 -1 -3 .0 OG 89 NO ti PE 80 1- 0- 00 ER 35 LD ve RI 32 20 20 1 DO 70 09 09 PH RI L 1 AR CH 5 MA AR MG CY D W TA 14 BL 39 ET 2 SHAHID 00 03 05 00 30 30 KR 67 AR Ac LO 37 -1 -2 .0 OG 89 NO ti PE 80 1- 1- 00 ER 35 LD ve RI 32 20 20 1 DO 70 09 09 PH RI L 1 AR CH 5 MA AR MG CY D W TA 14 BL 39 ET 2 CI 55 03 05 00 30 30 KR 67 SHAHID Ac TA 11 -2 -2 .0 OG 89 YA ti LO 10 0- 1- 00 ER 35 G- ve WI 34 20 20 0 TH AM 40 09 09 PH OM 5 AR HB MA R CY LE 40 A 14 MG 39 2 TA BL ET TR 50 03 05 02 30 30 CL 18 AR Ac AZ 11 -1 -2 .0 IN 92 NO ti OD 10 1- 1- 00 IC 85 LD ve ON 43 20 20 E 30 09 09 PH RI 50 1 AR CH MA AR MG CY D W TA BL ET TR 50 03 04 01 30 30 CL 18 AR Ac AZ 11 -1 -2 .0 IN 92 NO ti OD 10 1- 3- 00 IC 85 LD ve ON 43 20 20 E 30 09 09 PH RI 50 1 AR CH MA AR MG CY D W TA BL ET CI 57 03 04 01 30 30 CL 18 SHAHID Ac TA 66 -2 -2 .0 IN 99 YA ti LO 40 0- 3- 00 IC 85 G- ve WI 50 20 20 TH AM 98 09 09 PH OM 8 AR HB MA R CY LE 40 A MG TA BL ET SHAHID 00 03 04 01 30 30 CL 18 SHAHID Ac LO 37 -2 -2 .0 IN 99 YA ti PE 80 0- 3- 00 IC 86 G- ve RI 25 20 20 TH DO 70 09 09 PH OM L 1 AR 1 MA MG CY LE A TA BL ET LO 00 04 04 00 30 5 CL 19 AR Ac RA 22 -1 -2 .0 IN 15 NO ti ZE 82 0- 3- 00 IC 31 LD ve PA 05 20 20 M 91 09 09 PH RI 1 0 AR CH MG MA AR CY D TA W BL ET 60 03 04 00 24 8 CL 19 AR Ac 25 -2 -0 0. IN 01 NO ti 80 3- 9- 00 IC 27 LD ve 41 20 20 0 51 09 09 PH RI 6 AR CH MA AR CY D W CL 00 03 04 00 45 10 CL 19 AR Ac OT 16 -2 -0 .0 IN 05 NO ti RI 80 4- 9- 00 IC 06 LD ve MA 25 20 20 ZO 84 09 09 PH RI LE 6 AR CH -B MA AR ET CY D AM W ET SHAHID SO NE CR M 00 03 04 00 30 5 CL 19 AR Ac 18 -2 -0 .0 IN 01 NO ti 20 2- 9- 00 IC 26 LD ve 49 20 20 21 09 09 PH RI 0 AR CH MA AR CY D W IB 53 03 03 00 30 8 CL 18 AR Ac UP 74 -1 -2 .0 IN 92 NO ti RO 60 1- 6- 00 IC 72 LD ve FE 46 20 20 N 50 09 09 PH RI 60 5 AR CH 0 MA AR MG CY D W TA BL ET SHAHID 00 03 03 00 30 30 CL 18 SHAHID Ac LO 37 -2 -2 .0 IN 99 YA ti PE 80 0- 6- 00 IC 86 G- ve RI 25 20 20 TH DO 70 09 09 PH OM L 1 AR 1 MA MG CY LE A TA BL ET AN 37 03 03 00 15 30 CL 18 AR Ac TA 20 -1 -2 0. IN 92 NO ti CI 50 1- 6- 00 IC 89 LD ve D 21 20 20 0 50 04 09 09 PH RI 0 7 AR CH MG MA AR CY D CH W EW AB LE TA BL ET NE 37 03 03 00 36 6 CL 18 AR Ac LK 20 -1 -2 0. IN 92 NO ti 50 1- 6- 00 IC 88 LD ve OF 83 20 20 0 34 09 09 PH RI MA 0 AR CH GN MA AR ES CY D IA W [place] SP EN SI ON TR 50 03 03 00 30 30 CL 18 AR Ac AZ 11 -1 -2 .0 IN 92 NO ti OD 10 1- 6- 00 IC 85 LD ve ON 43 20 20 E 30 09 09 PH RI 50 1 AR CH MA AR MG CY D W TA BL ET LO 00 03 03 00 30 8 CL 18 AR Ac RA 22 -1 -2 .0 IN 92 NO ti ZE 82 1- 6- 00 IC 77 LD ve PA 05 20 20 M 91 09 09 PH RI 1 0 AR CH MG MA AR CY D TA W BL ET CI 57 03 03 00 30 30 CL 18 SHAHID Ac TA 66 -2 -2 .0 IN 99 YA ti LO 40 0- 6- 00 IC 85 G- ve WI 50 20 20 TH AM 98 09 09 PH OM 8 AR HB MA R CY LE 40 A MG TA BL ET BE 00 03 03 00 30 10 CL 18 AR Ac NZ 60 -1 -2 .0 IN 92 NO ti TR 32 1- 6- 00 IC 82 LD ve OP 43 20 20 IN 52 09 09 PH RI E 1 AR CH ME MA AR S CY D 2 W MG TA BL ET 00 03 03 00 80 15 CL 18 AR Ac 47 -1 -2 .0 IN 98 NO ti 20 7- 6- 00 IC 08 LD ve 30 20 20 18 09 09 PH RI 0 AR CH MA AR CY D W SHAHID 00 12 02 01 30 30 KR 67 CO Ac LO 37 -0 -1 .0 OG 69 OP ti PE 80 9- 2- 00 ER 26 ER ve RI 32 20 20 2 DO 70 08 09 PH LE L 1 AR SL 5 MA IE MG CY M TA 14 BL 39 ET 2 LO 60 12 01 00 30 30 KR 67 GO Ac RA 50 -2 -1 .0 OG 69 LD ti TA 50 9- 5- 00 ER 96 EN ve DI 14 20 20 4 BE NE 70 08 09 PH RG 1 AR 10 MA CY MG AN 14 A TA 39 I BL 2 ET 68 12 01 00 14 7 KR 67 GO Ac 03 -2 -1 .0 OG 69 LD ti 20 4- 5- 00 ER 96 EN ve 32 20 20 3 BE 81 08 09 PH RG 4 AR MA CY AN 14 A 39 I 2 SHAHID 00 12 01 00 30 30 KR 67 CO Ac LO 37 -0 -0 .0 OG 69 OP ti PE 80 9- 1- 00 ER 26 ER ve RI 32 20 20 2 DO 70 08 09 PH LE L 1 AR SL 5 MA IE MG CY M TA 14 BL 39 ET 2 Results Labs Lab Lab Date Result Refere Interp Status Commen Order Detail nces retati t Range on Urinalysis dipstick W Reflex Microscopic panel in Urine (03-17-2017 03:00) Epithel 10-20 0#/hp complet ial 017 f - ed cells.s 03:00 5#/hp quamous f [Presen ce] in Urine sedimen t by Microsc opy high power field Urinalysis dipstick W Reflex Microscopic panel in Urine (03-17-2017 03:00) Appeara CLEAR CLEAR complet nce of 017 ed Urine 03:00 Bilirub NEGATIV NEG complet in 017 E ed [Presen 03:00 ce] in Urine by Test strip Erythro NEGATIV NEG complet cytes 017 E ed [Presen 03:00 ce] in Urine Color 2 YELLOW YELLOW complet of 017 ed Urine 03:00 Ketones 24 NEGATIV NEG complet 017 E ed [Presen 03:00 ce] in Urine by Automat ed test strip Mucus NEGATIV NEG complet [Presen 017 E ed ce] in 03:00 Urine sedimen t by Light microsc opy Nitrite NEGATIV NEG complet 017 E ed [Presen 03:00 ce] in Urine by Test strip Urobili 2 0.2 NEG complet nogen 017 ed [Presen 03:00 ce] in Urine by Test strip Procedures Procedure DOS Code Location Performer Comment COLLECTIO 66622 COMBINED COMBINED N VENOUS 7 PHYSICIAN PHYSICIAN BLOOD S LAB S LAB VENIPUNCT URE BASIC 73660 COMBINED COMBINED METABOLIC 7 PHYSICIAN PHYSICIAN PANEL S LAB S LAB CALCIUM TOTAL TRAVEL [address] MED 7 PHYSICIAN PHYSICIAN NEC LAB S LAB S LAB SPEC; PRORATD TRIP [facility] HOS BED [id number] MIC LOPEZ DUTY 7 HOME HOME W/WT CAP [facility]ICAL MEDICAL >350 EQUIPME EQUIPME PDS</=TO 600 PDS NONEMERG [id number] FEDERATED FEDERATED TRNSPRT: 7 [facility]I-BUS [facility]OT SYS NONEMERG A0120 FEDERATED FEDERATED TRNSPRT: 7 MINI-BUS TRANSPORT TRANSPORT [facility]OT SYS NONEMERG A0120 FEDERATED FEDERATED TRNSPRT: 7 MINI-BUS TRANSPORT TRANSPORT [facility]/OT SYS BASIC 95038 COMBINED COMBINED METABOLIC 7 PHYSICIAN PHYSICIAN PANEL S LA S LA CALCIUM TOTAL COLLECTIO 38892 COMBINED COMBINED N VENOUS 7 PHYSICIAN PHYSICIAN BLOOD S LA S LA VENIPUNCT URE TRAVEL [address] MED 7 PHYSICIAN PHYSICIAN NEC LAB S LA S LA SPEC; PRORATD TRIP CHRG NONEMERG A0120 FEDERATED FEDERATED TRNSPRT: 7 [facility]-BUS TRANSPORT TRANSPORT [facility]/OT SYS COLLECTIO 32186 COMBINED COMBINED N VENOUS 7 PHYSICIAN PHYSICIAN BLOOD S LA S LA VENIPUNCT URE BASIC 51877 COMBINED COMBINED METABOLIC 7 PHYSICIAN PHYSICIAN PANEL S LA S LA CALCIUM TOTAL TRAVEL [address] MED 7 PHYSICIAN PHYSICIAN NEC LAB S LA S LA SPEC; PRORATD TRIP CHRG BASIC 58631 COMBINED COMBINED METABOLIC 7 PHYSICIAN PHYSICIAN PANEL S LA S LA CALCIUM TOTAL COLLECTIO 62486 COMBINED COMBINED N VENOUS 7 PHYSICIAN PHYSICIAN BLOOD S LA S LA VENIPUNCT URE TRAVEL [address] MED 7 PHYSICIAN PHYSICIAN NEC LAB S LA S LA SPEC; PRORATD TRIP CHRG HEMOGLOBI 70474 COMBINED COMBINED N 7 PHYSICIAN PHYSICIAN GLYCOSYLA S LA S LA JULISA A1C FOR DIAB A5512 [place] ONLY MX 7 MEDICAL MEDICAL DNSITY SUPPLY SUPPLY [employer] FORMD PRFAB EA DIAB ONLY A5500 [place] FIT CSTM 7 MEDICAL MEDICAL PREP&SPL SUPPLY SUPPLY SHOE [employer] DNSITY INSRT NONEMERG A0120 FEDERATED FEDERATED TRNSPRT: 7 MINI-BUS TRANSPORT TRANSPORT MTN ATION SER ATION SER AREA/OTH SYS NONEMERG A0120 FEDERATED FEDERATED TRNSPRT: 7 MINI-BUS TRANSPORT TRANSPORT MTN ATION SER ATION SER AREA/OTH SYS COLLECTIO 25418 COMBINED COMBINED N VENOUS 7 PHYSICIAN PHYSICIAN BLOOD S LA S LA VENIPUNCT URE BASIC 60953 COMBINED COMBINED METABOLIC 7 PHYSICIAN PHYSICIAN PANEL S LA S LA CALCIUM TOTAL TRAVEL [address] MED 7 PHYSICIAN PHYSICIAN NEC LAB S LA S LA SPEC; PRORATD TRIP CHRG VOLUME 55963 COMBINED COMBINED MEASUREME 6 PHYSICIAN PHYSICIAN NT [place]ED [place] [address] COMBINED COMBINED THYROID 6 PHYSICIAN PHYSICIAN STIMULATI S LA S LA NG HORMONE TSH LIPID 52274 COMBINED COMBINED PANEL 6 PHYSICIAN PHYSICIAN S LA S LA BASIC 55540 COMBINED COMBINED METABOLIC 6 PHYSICIAN PHYSICIAN PANEL S LA S LA CALCIUM TOTAL URNLS DIP 97962 COMBINED COMBINED 6 PHYSICIAN PHYSICIAN STICK/TAB S LA S LA LET REAGENT AUTO MICROSCOP Y HEMOGLOBI 45119 COMBINED COMBINED N 6 PHYSICIAN PHYSICIAN GLYCOSYLA S LA S LA JULISA A1C NONEMERG A0120 FEDERATED FEDERATED TRNSPRT: 6 MINI-BUS TRANSPORT TRANSPORT MTN ATION SER ATION SER AREA/OTH SYS NONEMERG A0120 FEDERATED FEDERATED TRNSPRT: 6 MINI-BUS TRANSPORT TRANSPORT MTN ATION SER ATION SER AREA/OTH SYS NONEMERG A0120 FEDERATED FEDERATED TRNSPRT: 6 MINI-BUS TRANSPORT TRANSPORT MTN ATION SER ATION SER AREA/OTH SYS PARING/CU 34811 JUANA ARIAS TTING 6 BENIGN HYPERKERA TOTIC LESION 2-4 TRIMMING 65445 JUANA ARIAS NONDYSTRO 6 PHIC NAILS ANY NUMBER DEBRIDEME 81849 BRAUDIS BRAUDIS NT NAIL 6 ANY METHOD 1-5 DUP-SCAN 06452 BRIAN ROSELYN XTR VEINS 6 MEDICAL SHARA IMAGING UNILATERA ASS L/LIMITED STUDY ECHO 06714 JAMESON HAILE TTHRC R-T 6 MEDICAL NOAM 2D SERV W/WOM-MOD FOUNDATIO E COMPL N SPEC&COLR D GROUND A0425 [facility] MILEAGE 6 AMBULANCE AMBULANCE PER SERVICE SERVICE STATUTE MILE AMBULANCE A0429 [facility] SERVICE 6 AMBULANCE AMBULANCE BLS SERVICE SERVICE EMERGENCY TRANSPORT TRIMMING 15312 TRACYUDIS BRAUDIS NONDYSTRO 6 JAM JAM PHIC NAILS ANY NUMBER PARING/CU 28289 BRAUDIS BRAUDIS TTING 6 JAM JAM BENIGN HYPERKERA TOTIC LESION >4 DEBRIDEME 69498 TRACYUDIS BRAUDIS NT NAIL 6 JAM JAM ANY METHOD 1-5 TRAVEL [address] MED 6 PHYSICIAN PHYSICIAN NEC LAB S LA S LA SPEC; PRORATD TRIP CHRG BASIC 11172 COMBINED COMBINED METABOLIC 6 PHYSICIAN PHYSICIAN PANEL S LA S LA CALCIUM TOTAL COLLECTIO 49060 COMBINED COMBINED N VENOUS 6 PHYSICIAN PHYSICIAN BLOOD S LA S LA VENIPUNCT URE COLLECTIO 46634 COMBINED COMBINED N VENOUS 6 PHYSICIAN PHYSICIAN BLOOD S LA S LA VENIPUNCT URE TRAVEL [address] MED 6 PHYSICIAN PHYSICIAN NEC LAB S LA S LA SPEC; PRORATD TRIP CHRG HEMOGLOBI 02596 COMBINED COMBINED N 6 PHYSICIAN PHYSICIAN GLYCOSYLA S LA S LA JULISA A1C TRIMMING 87993 BRAUDIS BRAUDIS NONDYSTRO 6 JAM JAM PHIC NAILS ANY NUMBER PARING/CU 25801 BRAUDIS BRAUDIS TTING 6 JAM JAM BENIGN HYPERKERA TOTIC LESION >4 DEBRIDEME 44676 BRAUDIS BRAUDIS NT NAIL 6 JAM JAM ANY METHOD 1-5 NONEMERG A0120 FEDERATED FEDERATED TRNSPRT: 6 MINI-BUS TRANSPORT TRANSPORT MTN ATION SER ATION SER AREA/OTH SYS FOR DIAB A5512 [place] EL[place] ONLY MX 6 MEDICAL MEDICAL DNSITY SUPPLY SUPPLY [employer] FORMD PRFAB EA DIAB ONLY A5500 [place] FIT CSTM 6 MEDICAL MEDICAL PREP&SPL SUPPLY SUPPLY [employer]OE [employer] DNSITY INSRT HEMOGLOBI 01180 COMBINED COMBINED N 6 PHYSICIAN PHYSICIAN GLYCOSYLA S LA S LA JULISA A1C TRAVEL [address] MED 6 PHYSICIAN PHYSICIAN NEC LAB S LA S LA SPEC; PRORATD TRIP CHRG COLLECTIO 74697 COMBINED COMBINED N VENOUS 6 PHYSICIAN PHYSICIAN BLOOD S LA S LA VENIPUNCT URE COLLECTIO 12935 COMBINED COMBINED N VENOUS 5 PHYSICIAN PHYSICIAN BLOOD S LA S LA VENIPUNCT URE BASIC 61273 COMBINED COMBINED METABOLIC 5 PHYSICIAN PHYSICIAN PANEL S LA S LA CALCIUM TOTAL TRAVEL [address] MED 5 PHYSICIAN PHYSICIAN NEC LAB S LA S LA SPEC; PRORATD TRIP CHRG INFLUENZA Q2038 [facility] DEPT HLTH DEPT VIRUS 3 DAVE DAVE YRS & > IM FLUZONE TRAVEL [address] MED 5 PHYSICIAN PHYSICIAN NEC LAB S LA S LA SPEC; PRORATD TRIP CHRG HEMOGLOBI 72479 COMBINED COMBINED N 5 PHYSICIAN PHYSICIAN GLYCOSYLA S LA S LA JULISA A1C COLLECTIO 92165 COMBINED COMBINED N VENOUS 5 PHYSICIAN PHYSICIAN BLOOD S LA S LA VENIPUNCT URE URNLS DIP 17229 COMBINED COMBINED 5 PHYSICIAN PHYSICIAN STICK/TAB S LA S LA LET REAGENT AUTO MICROSCOP Y VOLUME 43786 COMBINED COMBINED MEASUREME 5 PHYSICIAN PHYSICIAN NT TIMED S LA S LA COLLECTIO N EACH PARING/CU 40167 JUANA ARIAS TTING 5 JAM JAM BENIGN HYPERKERA TOTIC LESION >4 DEBRIDEME 87301 JUANA ARIAS NT NAIL 5 JAM JAM ANY METHOD 1-5 TRIMMING 28398 TRACYUDIJordan ARIAS NONDYSTRO 5 JAM JAM PHIC NAILS ANY NUMBER COLLECTIO 54188 COMBINED COMBINED N VENOUS 5 PHYSICIAN PHYSICIAN BLOOD S LA S LA VENIPUNCT URE TRAVEL [address] MED 5 PHYSICIAN PHYSICIAN NEC LAB S LA S LA SPEC; PRORATD TRIP CHRG HEMOGLOBI 88326 COMBINED COMBINED N 5 PHYSICIAN PHYSICIAN GLYCOSYLA S LA S LA JULISA A1C TRAVEL [address] MED 5 PHYSICIAN PHYSICIAN NEC LAB S LA S LA SPEC; PRORATD TRIP CHRG COLLECTIO 44388 COMBINED COMBINED N VENOUS 5 PHYSICIAN PHYSICIAN BLOOD S LA S LA VENIPUNCT URE HEMOGLOBI 50403 COMBINED COMBINED N 5 PHYSICIAN PHYSICIAN GLYCOSYLA S LA S LA JULISA A1C NONEMERG A0120 FEDERATED FEDERATED TRNSPRT: 5 MINI-BUS TRANSPORT TRANSPORT MTN [facility]/OT SYS FOR DIAB A5512 ELITE ELITE ONLY MX 5 MEDICAL MEDICAL DNSITY SUPPLY SUPPLY [employer] FORMD PRFAB EA DIAB ONLY A5500 [place] FIT CSTM 5 MEDICAL MEDICAL PREP&SPL SUPPLY SUPPLY [employer] DNSITY INSRT COLLECTIO 60575 COMBINED COMBINED N VENOUS 5 PHYSICIAN PHYSICIAN BLOOD S LA S LA VENIPUNCT URE BASIC 02351 COMBINED COMBINED METABOLIC 5 PHYSICIAN PHYSICIAN PANEL S LA S LA CALCIUM TOTAL TRAVEL [address] MED 5 PHYSICIAN PHYSICIAN NEC LAB S LA S LA SPEC; PRORATD TRIP CHRG COLLECTIO 60115 COMBINED COMBINED N VENOUS 5 PHYSICIAN PHYSICIAN BLOOD S LA S LA VENIPUNCT URE TRAVEL [address] MED 5 PHYSICIAN PHYSICIAN NEC LAB S LA S LA SPEC; PRORATD TRIP CHRG HEMOGLOBI 33318 COMBINED COMBINED N 5 PHYSICIAN PHYSICIAN GLYCOSYLA S LA S LA JULISA A1C DIAB ONLY A5500 [place] FIT CSTM 4 MEDICAL MEDICAL PREP&SPL SUPPLY SUPPLY [employer] DNSITY INSRT FOR DIAB A5512 [place] ONLY MX 4 MEDICAL MEDICAL DNSITY SUPPLY SUPPLY [employer] FORMD PRFAB EA PARING/CU 02239 JUANA ARIAS TTING 4 JAM JAM BENIGN HYPERKERA TOTIC LESION 2-4 TRIMMING 60684 BRAUDIS BRAUDIS NONDYSTRO 4 JAM JAM PHIC NAILS ANY NUMBER DEBRIDEME 19922 BRAUDIS BRAUDIS NT NAIL 4 JAM JAM ANY METHOD 1-5 COLLECTIO 48307 COMBINED COMBINED N VENOUS 4 PHYSICIAN PHYSICIAN BLOOD S LA S LA VENIPUNCT URE HEMOGLOBI 28001 COMBINED COMBINED N 4 PHYSICIAN PHYSICIAN GLYCOSYLA S LA S LA JULISA A1C TRAVEL [address] MED 4 PHYSICIAN PHYSICIAN NEC LAB S LA S LA SPEC; PRORATD TRIP CHRG TRAVEL [address] MED 4 PHYSICIAN PHYSICIAN NEC LAB S LA S LA SPEC; PRORATD TRIP CHRG HEMOGLOBI 33861 COMBINED COMBINED N 4 PHYSICIAN PHYSICIAN GLYCOSYLA S LA S LA JULISA A1C COLLECTIO 23840 COMBINED COMBINED N VENOUS 4 PHYSICIAN PHYSICIAN BLOOD S LA S LA VENIPUNCT URE COLLECTIO 91308 COMBINED COMBINED N VENOUS 4 PHYSICIAN PHYSICIAN BLOOD S LA S LA VENIPUNCT URE BASIC 36805 COMBINED COMBINED METABOLIC 4 PHYSICIAN PHYSICIAN PANEL S LA S LA CALCIUM TOTAL TRAVEL [address] MED 4 PHYSICIAN PHYSICIAN NEC LAB S LA S LA SPEC; PRORATD TRIP CHRG HEMOGLOBI 42459 COMBINED COMBINED N 4 PHYSICIAN PHYSICIAN GLYCOSYLA S LA S LA JULISA A1C TRAVEL [address] MED 4 PHYSICIAN PHYSICIAN NEC LAB S LA S LA SPEC; PRORATD TRIP CHRG COLLECTIO 65133 COMBINED COMBINED N VENOUS 4 PHYSICIAN PHYSICIAN BLOOD S LA S LA VENIPUNCT URE TRIMMING 21013 BRAUDIS BRAUDIS NONDYSTRO 4 JAM JAM PHIC NAILS ANY NUMBER PARING/CU 67551 BRAUDIS BRAUDIS TTING 4 JAM JAM BENIGN HYPERKERA TOTIC LESION >4 DEBRIDEME 97068 BRAUDIS BRAUDIS NT NAIL 4 JAM JAM ANY METHOD 1-5 HEMOGLOBI 28660 COMBINED COMBINED N 4 PHYSICIAN PHYSICIAN GLYCOSYLA S LA S LA JULISA A1C TRAVEL [address] MED 4 PHYSICIAN PHYSICIAN NEC LAB S LA S LA SPEC; PRORATD TRIP CHRG COLLECTIO 99227 COMBINED COMBINED N VENOUS 4 PHYSICIAN PHYSICIAN BLOOD S LA S LA VENIPUNCT URE NONEMERG A0120 FEDERATED FEDERATED TRNSPRT: 4 MINI-BUS TRANSPORT TRANSPORT MTN [facility]/OT SYS COLLECTIO 32666 COMBINED COMBINED N VENOUS 3 PHYSICIAN PHYSICIAN BLOOD S LA S LA VENIPUNCT URE BASIC 90764 COMBINED COMBINED METABOLIC 3 PHYSICIAN PHYSICIAN PANEL S LA S LA CALCIUM TOTAL NONEMERG A0120 FEDERATED FEDERATED TRNSPRT: 3 MINI-BUS TRANSPORT [facility] ADMINISTR G0008 YUDY YUDY ATION OF 3 [facility] VIRUS VACCINE INFLUENZA Q2038 YUDY YUDY VACC 3 [facility] VIRUS 3 YRS & > IM FLUZONE TRIMMING 93763 JUANA JIMENEZS NONDYSTRO 3 JAM JAM PHIC NAILS ANY NUMBER PARING/CU 58578 BRAUDIS BRAUDIS TTING 3 JAM JAM BENIGN HYPERKERA TOTIC LESION 2-4 DEBRIDEME 92511 JUANA MOLINAUDIS NT NAIL 3 JAM JAM ANY METHOD 1-5 HEMOGLOBI 84632 COMBINED COMBINED N 3 PHYSICIAN PHYSICIAN GLYCOSYLA S LA S LA JULISA A1C COLLECTIO 64085 COMBINED COMBINED N VENOUS 3 PHYSICIAN PHYSICIAN BLOOD S LA S LA VENIPUNCT URE NONEMERG A0120 LKLP CAC LKLP CAC TRNSPRT: 3 INC INC MINI-BUS REGION 11 REGION 11 [facility]/OT SYS BASIC 30219 COMBINED COMBINED METABOLIC 3 PHYSICIAN PHYSICIAN PANEL S LA S LA CALCIUM TOTAL COLLECTIO 05479 COMBINED COMBINED N VENOUS 3 PHYSICIAN PHYSICIAN BLOOD S LA S LA VENIPUNCT URE HEMOGLOBI 04808 COMBINED COMBINED N 3 PHYSICIAN PHYSICIAN GLYCOSYLA S LA S LA JULISA A1C TRAVEL [address] MED 3 PHYSICIAN PHYSICIAN NEC LAB S LA S LA SPEC; PRORATD TRIP CHRG TRANS R0070 EXPRESS EXPRESS PRTBL 3 MOBILE MOBILE X-RAY DIAGNOSTI DIAGNOSTI EQP&PERS C SE C SE LINDSEY/NRS LINDSEY-TRIP 1 PT RADIOLOGI 26601 EXPRESS EXPRESS C EXAM 3 MOBILE MOBILE CHEST 2 DIAGNOSTI DIAGNOSTI VIEWS C SE C SE FRONTAL&L ATERAL SET-UP Q0092 EXPRESS EXPRESS PORTABLE 3 MOBILE MOBILE X-RAY DIAGNOSTI DIAGNOSTI EQUIPMENT C SE C SE TRAVEL [address] MED 3 PHYSICIAN PHYSICIAN NEC LAB S LA S LA SPEC; PRORATD TRIP CHRG HEMOGLOBI 04342 COMBINED COMBINED N 3 PHYSICIAN PHYSICIAN GLYCOSYLA S LA S LA JULISA A1C COLLECTIO 00417 COMBINED COMBINED N VENOUS 3 PHYSICIAN PHYSICIAN BLOOD S LA S LA VENIPUNCT URE TRIMMING 75763 JUANA JIMENEZS NONDYSTRO 3 JAM JAM PHIC NAILS ANY NUMBER DEBRIDEME 47567 BRAUDIS BRAUDIS NT NAIL 3 JAM JAM ANY METHOD 1-5 TRAVEL [address] MED 2 PHYSICIAN PHYSICIAN NEC LAB S LA S LA SPEC; [facility]D [facility]IP [facility] 21561 COMBINED COMBINED METABOLIC 2 PHYSICIAN PHYSICIAN PANEL S LA S LA CALCIUM TOTAL COLLECTIO 68233 COMBINED COMBINED N VENOUS 2 PHYSICIAN PHYSICIAN BLOOD S LA S LA VENIPUNCT URE AMBULANCE A0429 [facility] SERVICE 2 AMBULANCE AMBULANCE BLS SERVICE SERVICE EMERGENCY TRANSPORT GROUND A0425 [facility] MILEAGE 2 AMBULANCE AMBULANCE PER SERVICE SERVICE STATUTE MILE NONEMERG A0120 LKLP LKLP TRNSPRT: 2 [facility] COMMUNITY MINI-BUS ACTION ACTION MTN AREA/OTH SYS COLLECTIO 41770 COMBINED COMBINED N VENOUS 2 PHYSICIAN PHYSICIAN BLOOD S LA S LA VENIPUNCT URE HEMOGLOBI 26863 COMBINED COMBINED N 2 PHYSICIAN PHYSICIAN GLYCOSYLA S LA S LA JULISA A1C TRAVEL [address] MED 2 PHYSICIAN PHYSICIAN NEC LAB S LA S LA SPEC; PRORATD TRIP CHRG DEBRIDEME 20587 BRAUDIS BRAUDIS NT NAIL 2 JAM JAM ANY METHOD 1-5 PARING/CU 20376 JUANA JIMENEZS TTING 2 JAM JAM BENIGN HYPERKERA TOTIC LESION 1 TRIMMING 31154 JUANA JIMENEZS NONDYSTRO 2 JAM JAM PHIC NAILS ANY NUMBER INFLUENZA Q2038 YUDY JIMENES VACC 2 [facility] VIRUS 3 YRS & > IM FLUZONE ADMINISTR G0008 YUDY JIMENES ATION OF 2 [facility] VIRUS VACCINE TRIMMING 87718 JUANA JIMENEZS NONDYSTRO 2 JAM JAM PHIC NAILS ANY NUMBER DEBRIDEME 39172 JUANA JIMENEZS NT NAIL 2 JAM JAM ANY METHOD 1-5 TRAVEL [address] MED 2 PHYSICIAN PHYSICIAN NEC LAB S LA S LA SPEC; PRORATD TRIP CHRG COLLECTIO 50871 COMBINED COMBINED N VENOUS 2 PHYSICIAN PHYSICIAN BLOOD S LA S LA VENIPUNCT URE HEMOGLOBI 75950 COMBINED COMBINED N 2 PHYSICIAN PHYSICIAN GLYCOSYLA S LA S LA JULISA A1C PARING/CU 61796 JUANA JIMENEZS TTING 2 JAM JAM BENIGN HYPERKERA TOTIC LESION 1 RADIOLOGI 04320 [facility] C 2 QR Artist EXAMINATI ON KNEE 3 [place] [address] LAB LUCY LAB LUCY IRON 2 [employer] SET-UP Q0092 [facility] PORTABLE 2 [facility] [employer] X-RAY EQUIPMENT TRANS R0070 [facility] PRTBL 2 [facility] X-RAY EQP&PERS LINDSEY/NRS LINDSEY-TRIP 1 PT TRAVEL [address] MED 2 PHYSICIAN PHYSICIAN NEC LAB S LA S LA SPEC; PRORATD TRIP CHRG COLLECTIO 61980 COMBINED COMBINED N VENOUS 2 PHYSICIAN PHYSICIAN BLOOD S LA S LA VENIPUNCT URE TRIMMING 94126 JUANA JIMENEZS NONDYSTRO 2 JAM JAM PHIC NAILS ANY NUMBER DEBRIDEME 19407 JUANA JIMENEZS NT NAIL 2 JAM JAM ANY METHOD 1-5 BX SKIN 19907 DERMATOLO FINK-WEB SUBCUTANE 2 GY B RAYMOND OUS&/MUCO CONSULTAN US TS PSC MEMBRANE 1 LESION NONEMERG A0120 LKLP LKLP TRNSPRT: 2 COMMUNITY COMMUNITY MINI-BUS ACTION ACTION MTN AREA/OTH SYS DESTRUCTI 13794 DERMATOLO FINK-WEB ON BENIGN 2 GY B RAYMOND LESIONS CONSULTAN UP TO 14 [place] [address] DERMATOLO BRITTON II SURG 2 GY TERRY PATHOLOGY CONSULTAN TS PSC GROSS&SEJAL ROSCOPIC EXAM HEMOGLOBI 82485 COMBINED COMBINED N 2 PHYSICIAN PHYSICIAN GLYCOSYLA S LA S LA JULISA A1C TRAVEL [address] MED 2 PHYSICIAN PHYSICIAN NEC LAB S LA S LA SPEC; PRORATD TRIP CHRG COLLECTIO 19769 COMBINED COMBINED N VENOUS 2 PHYSICIAN PHYSICIAN BLOOD S LA S LA VENIPUNCT URE SET-UP Q0092 [facility] PORTABLE 1 QR Artist X-RAY EQUIPMENT TRANS R0070 [facility] PRTBL 1 QR Artist X-RAY EQP&PERS LINDSEY/NRS LINDSEY-TRIP 1 PT RADEX HIP 12226 [facility] 1 QR Artist UNILATERA L COMPLETE MINIMUM 2 VIEWS GROUND A0425 [facility] MILEAGE 1 AMBULANCE AMBULANCE PER SERVICE SERVICE STATUTE MILE AMBULANCE A0429 [facility] SERVICE 1 AMBULANCE AMBULANCE BLS SERVICE SERVICE EMERGENCY TRANSPORT SUSCEPTIB 29772 YUDY JIMENES LTY STDY 1 [facility] ANTIMICRB INC INC IAL MICRO/AGA R DILUTJ CUL BACT 27981 YUDY JIMENES XCPT 1 [facility] URINE INC INC BLOOD/STO OL AEROBIC ISOL CUL BACT 07205 YUDY JIMENES AEROBIC 1 [facility] ADDL INC INC METHS DEFINITIV E EA ISOL BLOOD 36188 YUDY JIMENES OCCULT 1 [facility] PEROXIDAS INC INC E ACTV QUAL FECES 1-3 SPEC ECG 56945 YUDY JIMENES ROUTINE 1 [facility] ECG INC INC W/LEAST 12 LDS TRCG ONLY W/O I&R CREATINE 55891 YUDY JIMENES KINASE 1 [facility] [place] [address] YUDY JIMENES LIPASE 1 [facility] INC INC COMPREHEN 01956 YUDY JIMENES SIVE 1 [facility] [address] YUDY JIMENES INFUSION 1 [facility] THERAPY/P INC INC ROPHYLAXI S /DX 1ST TO 1 HR ECG 75652 JAMIL DELGADO ROUTINE 1 EMERGENCY III DEVON ECG SERVICES W/LEAST 12 LDS I&[place] [address] YUDY JIMENES TROPONIN 1 [facility] QUANTITAT INC INC KAILASH BLOOD 56843 YUDY JIMENES COUNT 1 [facility] COMPLETE INC INC AUTO&[place] [address] YUDY JIMENES INFUSION 1 [facility] HYDRATION INC INC EACH ADDITIONA L HOUR CREATINE 43888 YUDY JIMENES KINASE MB 1 [facility] FRACTION INC INC ONLY BLOOD 82299 COMBINED COMBINED COUNT 1 PHYSICIAN PHYSICIAN COMPLETE S LA S LA AUTO&AUTO DIFRNTL WBC COMPREHEN 94681 COMBINED COMBINED SIVE 1 PHYSICIAN PHYSICIAN METABOLIC S LA S LA PANEL TRAVEL [address] MED 1 PHYSICIAN PHYSICIAN NEC LAB S LA S LA SPEC; PRORATD TRIP CHRG LIPID 50135 COMBINED COMBINED PANEL 1 PHYSICIAN PHYSICIAN S LA S LA COLLECTIO 30597 COMBINED COMBINED N VENOUS 1 PHYSICIAN PHYSICIAN BLOOD S LA S LA VENIPUNCT URE ADMINISTR G0008 YUDY JIMENES ATION OF 1 [facility] VIRUS VACCINE INFLUENZA Q2038 YUDY JIMENES VACC 1 [facility] VIRUS 3 YRS & > IM FLUZONE SCR G0145 PATHOLOGY PATHOLOGY CYTOPATH 1 & & CERV/VAG CYTOLOGY CYTOLOGY SCR LAB LAB AUTO&MNL RSCR PHYS NONEMERGE A0100 [facility] [place] [facility] 1 COMMUNITY TRANSPORT ACTION ATION; TAXI COLLECTIO 18344 COMBINED COMBINED N VENOUS 1 PHYSICIAN PHYSICIAN BLOOD S LA S LA VENIPUNCT URE TRAVEL [address] MED 1 PHYSICIAN PHYSICIAN NEC LAB S LA S LA SPEC; PRORATD TRIP CHRG GLUCOSE 18903 COMBINED COMBINED QUANTITAT 1 PHYSICIAN PHYSICIAN KALIASH BLOOD S LA S LA XCPT REAGENT STRIP HEMOGLOBI 57497 COMBINED COMBINED N 1 PHYSICIAN PHYSICIAN GLYCOSYLA S LA S LA JULISA A1C NONEMERGE A0100 [facility] 1 COMMUNITY TRANSPORT ACTION ATION; TAXI NONEMERGE A0100 [facility] 1 COMMUNITY TRANSPORT ACTION ATION; TAXI DEEP D9220 THE SHE SEDATION/ 1 IMPLANT & III LANA GENERAL ORAL ANESTHESI SURGERY C A-1ST 30 MINUTES ALVEOLOPL 43446 THE SHE ASTY EACH 1 IMPLANT & III LANA QUADRANT ORAL SPECIFY SURGERY C ORTHOPANT 05960 THE SHE OGRAM 1 IMPLANT & III LANA ORAL SURGERY C NONEMERGE A0100 [facility] 1 COMMUNITY TRANSPORT ACTION ATION; TAXI NONEMERGE A0100 [facility] 1 COMMUNITY TRANSPORT ACTION ATION; TAXI EGD 71601 [facility] TRANSORAL 0 ROSS BIOPSY GASTROENT SINGLE/MU EROLOGYAS LTIPLE INITIAL 40664 [facility] INPATIENT 0 ROSS CONSULT GASTROENT NEW/ESTAB EROLOGYAS PT [address] A[facility]UTOS[facility] ROUTINE 0 ALBERT THE ECG MED CTR W/LEAST 12 LDS I&R ONLY DETERMINA 79665 JASMIN SUBLER, TION 9 JESSICA GO MITZY REFRACTIV E STATE OPHTH 54844 JASMIN SUBLER, MEDICAL 9 JESSICA DONAVAN MITZY XM&EVAL COMPRE NEW PT 1/> VST SBSQ 28666 RANDOLPH DICKSON, NURSING 9 VLAD CHU W FACIL CARE/DAY MINOR COMPLJ 15 MIN URNLS DIP 95012 [facility], 9 PO[address] [place] D STICK/TAB FAMILY LET RGNT CARE, AUTO W/O INC. MICROSCOP Y Encounters Encounter Start End Date Code Location Performer Type Date OFFICE 64103 [facility] OUTPATIEN 7 7 PHYSICIAN T VISIT S GROUP 15 MINUTES OFFICE 05296 [facility] OUTPATIEN 7 7 PHYSICIAN T VISIT S GROUP 10 MINUTES OFFICE 97294 [facility] 7 7 Y OF T NEW [place] [facility] OFFICE 24382 [facility] OUT[facility]IEN 6 6 PHYSICIAN T VISIT S GROUP 10 MINUTES OFFICE 96313 [facility] OUTPATIEN 6 6 PHYSICIAN T VISIT S GROUP 10 MINUTES OFFICE 58580 [facility] OUTPATIEN 6 6 PHYSICIAN T NEW 20 S GROUP MINUTES OFFICE 16325 [facility] OUTPATIEN 6 6 PHYSICIAN QUIRINO T VISIT S GROUP 15 MINUTES EMERGENCY 10579 [facility]Y 2 2 [facility] DEPARTMEN INC T VISIT LIMITED/M INOR PROB EMERGENCY 88372 JAMIL JONES 2 2 EMERGENCY DEPARTMEN SERVICES T VISIT HIGH/URGE NT SEVERITY HOSPITAL [facility]UDY - 2 2 [facility] OUTPATIEN INC T OFFICE 29538 DERMATOLO FINK-WEB OUTPATIEN 2 2 GY B RAYMOND T CONSULTAN MINUTES [facility] EMERGENCY 83813 YUDY 1 1 [facility] DEPARTMEN INC T VISIT HIGH/URGE NT SEVERITY HOSPITAL YUDY - 1 1 [facility] OUTPATIEN INC T EMERGENCY 20968 YUDY 1 1 [facility] DEPARTMEN INC T VISIT HIGH/URGE NT SEVERITY EMERGENCY 01920 JAMIL DELGADO DEPT 1 1 EMERGENCY III DEVON VISIT SERVICES HIGH SEVERITY& [facility] OUT[facility] INC T OFFICE 32203 THE SHE OUTPATIEN 1 1 IMPLANT & III LANA T NEW 20 ORAL MINUTES SURGERY C OFFICE 40732 [facility] 9 9 POINT Mina T VISIT [facility] 15 CARE, MINUTES INC. OFFICE 77539 [facility] 9 9 [address] [place] Amin VISIT [facility] 15 CARE, MINUTES INC.
--- OUTSIDE RECORDS SUMMARY | 2017-04-07 15:44 | External Medical Summary Rpt | CCD ---
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 Name Role Phone VLAD DICKSON, Unavailable Unavailable VLAD DICKSON BRAUDIS, BRAUDIS Unavailable Unavailable BRAUDIS, BRAUDIS Unavailable Unavailable BRAUDIS JAM, BRAUDIS Unavailable Unavailable JAM BRAUDIS JAM, BRAUDIS Unavailable Unavailable JAM [facility] Unavailable Unavailable SERVICE, [facility]available Unavailable SERVICE, [facility] [place] [facility], [facility] Unavailable Unavailable DAVIS QUIRINO, DAVIS [...] [facility] Unavailable Unavailable LLC, [employer] [facility] [facility] Unavailable Unavailable LLC, [employer] [facility] Unavailable Unavailable DIAGNOSTIC SE, [facility] Unavailable Unavailable DIAGNOSTIC SE, [facility] Unavailable Unavailable TRANSPORTATION SER, [facility] FLORES, FLORES Unavailable Unavailable HARRIET, ALE Unavailable Unavailable I, HARRIET, ALE I [facility]INK[facility]BLAND[facility] RAY[facility], Unavailable Unavailable FINK[facility]BLAND[facility] RAY[facility]D [facility] Unavailable Unavailable [place], [facility] Unavailable Unavailable CENTER, [facility] Unavailable Unavailable INC, [facility] Unavailable Unavailable HOSPITAL P, [facility], Unavailable Unavailable [facility] Unavailable Unavailable IM[facility], [facility], [facility] Unavailable Unavailable [facility] Unavailable Unavailable [id number], [facility] [phone] [facility] Un[facility], [facility] Unavailable Unavailable HOLDING, [facility] [place], [place] Unavailable Unavailable [facility] Unavailable Unavailable 11, [facility] 11 [facility] Unavailable Unavailable ACTION, [facility] Unavailable Unavailable SERVICES, [facility] SANDRA MCGRAW, SANDRA Unavailable Unavailable [...] Unavailable Unavailable MIC NOAM, MIC Unavailable Unavailable NOAM [facility] Unavailable Unavailable EQUIPME, [facility] Unavailable Unavailable EQU[facility], [facility], Unavailable Unavailable [facility] SUBLER, MITZY, SUBLER, Unavailable Unavailable MITZY [facility] Unavailable Unavailable SURGERY C, [facility] Unavailable Unavailable GASTROENTEROLOGYAS, [facility] Un[facility] CARO LUCIO, Unavailable Unavailable CARO LUCIO [facility] Unavailable Unavailable DEPT DAVE, [facility] WEHRISIS III DEVON, Unavailable Unavailable WEHRMAN III REECE KULKARNI Unavailable Unavailable Purpose Continuity of Care Document - 06-24-2008 through 2016 Problems Code Diagnosis DOS Provider Status I10 ESSENTIAL 01-31-2017 [facility] HYPERTENSIO LAB N 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 N UNS CERV REGION R69 ILLNESS 01-16-2017 [facility] UNSPECIFIED TRANSPORTAT ION SER H6091 UNSPECIFIED 11-14-2016 [facility] OTITIS PHYSICIANS EXTERNA GROUP RIGHT EAR H6533 CHRONIC 11-14-2016 [facility] MUCOID PHYSICIANS OTITIS GROUP MEDIA BILATERAL R7301 IMPAIRED 10-04-2016 [facility] GLUCOSE LA P19614 UNS ACUTE 09-27-2016 [facility] NONINFECTIV PHYSICIANS E OTITIS GROUP EXTERNA UNS EAR H6691 OTITIS 09-27-2016 [facility] MEDIA PHYSICIANS UNSPECIFIED GROUP RIGHT EAR E119 TYPE 2 09-18-2016 [facility] WITHOUT COMPLICATIO NS R7303 PREDIABETES 07-26-2016 [facility] E039 HYPOTHYROID 06-21-2016 [facility] ISM PHYSICIANS UNSPECIFIED LA E785 HYPERLIPIDE 06-21-2016 [facility] BREN PH[facility]IANS UNSPECIFIED LA R300 DYSURIA 06-21-2016 [facility] PHYSICIANS LA [id number] CUTANEOUS 06-06-2016 [facility] ABSCESS OF PHYSICIANS LEFT LOWER GROUP LIMB B351 TINEA 05-04-2016 TRACYUDIS UNGUIUM E1151 TYPE 2 DM 05-04-2016 BRAUD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 I83157 PAIN IN 05-04-2016 B[facility] RIGHT FOOT J25824 PAIN IN 05-04-2016 [facility] LEFT FOOT J18862 PAIN IN 05-04-2016 B[facility] RIGHT TOES F13868 PAIN IN 05-04-2016 [facility] LEFT TOES R600 LOCALIZED 05-04-2016 B[facility] EDEMA I361 NONRHEUMATI 03-27-2016 [facility] INSUFFICIEN CY I517 CARDIOMEGAL 03-27-2016 [facility] I75227 PAIN IN 03-27-2016 [facility]G [facility] I48150 PAIN IN 03-26-2016 [facility] LEFT LOWER AMBULANCE LEG SERVICE R609 EDEMA 03-26-2016 [facility] UNSPECIFIED AMBULANCE SERVICE X34480 UNS 01-11-2016 JUANA SALEH ATHEROSCLER [place] ART EXTREM BILATERAL LEGS L851 ACQ 01-11-2016 JUANA SALEH KERATOSIS KERATODERMA PALMARIS ET PLANTARIS N920 EXCESS & 09-13-2015 [facility] FREQUENT PHYSICIANS MENSTRUATIO GROUP N W/REGULAR CYCLE N926 IRREGULAR 09-13-2015 [facility] MENSTRUATIO PHYSICIANS N GROUP UNSPECIFIED Z23 ENCOUNTER 04-04-2015 [facility] IMMUNIZATIO TH DEPT N DAVE 81236 DIAB W/O 03-17-2015 [facility] COMP TYPE PHYSICIANS II/UNS NOT LA STATED UNCNTRL 4019 UNSPECIFIED 03-17-2015 [facility] ESSENTIAL PHYSICIANS HYPERTENSIO LA N 5990 URINARY 03-17-2015 [facility] TRACT PHYSICIANS INFECTION LA SITE NOT SPECIFIED 1101 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 SALEH OSIS OF NAIL 99440 ATHEROSCLER 01-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 SALEH OSIS [place] ART EXTREMITIES UNSPEC 7011 ACQUIRED 01-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 SALEH KERATODERMA 7295 PAIN IN 01-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 SALEH SOFT TISSUES OF LIMB 32468 09-21-2014 [facility] TRANSPORTAT ION SER 7823 EDEMA 04-27-2014 JUANA SALEH V5869 LONG-TERM 11-25-2013 COMBIN[facility] (CURRENT) PHYSICIANS USE OF LA OTHER MEDICATIONS V0481 NEED 04-30-2013 [facility] C[facility] VACCINATION &INOCULATIO N FLU 514 PULMONARY 07-31-2012 [facility] [place] [address] WHEEZING 07-31-2012 [facility] SE 7862 COUGH 07-31-2012 [place] [address] DIAB 07-21-2012 TRACYGARCIAJordan SALEH W/PERIPH CIRC D/O TYPE II/UNS NOT UNCNTRL 7048 OTHER 05-24-2012 [facility] SPECIFIED EMERGENCY DISEASE OF SERVICES HAIR&HAIR FOLLICLES 2809 UNSPECIFIED 12-19-2011 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 05096 PAIN IN 12-19-2011 [employer] JOINT, [facility] LOWER LEG 7906 OTHER 12-19-2011 [facility] ABNORMAL AMERIC BLOOD HOLDING CHEMISTRY 22666 OTHER 07-26-2011 DER[facility] SPECIFIED [facility] 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 85046 PAIN IN 05-28-2011 [employer] JOINT [facility] PELVIC REGION AND THIGH 6826 CELLULITIS 05-09-2011 [facility] AND ABSCESS EMERGENCY OF LEG SERVICES EXCEPT FOOT 3829 UNSPECIFIED 04-18-2011 [facility] OTITIS [facility]ERGENCY MEDIA SERVICES 4580 ORTHOSTATIC 04-18-2011 [facility] P 4589 UNSPECIFIED 04-18-2011 [facility] HYPOTENSION SERVICES 6820 CELLULITIS 04-18-2011 [facility] AND ABSCESS EMERGENCY OF FACE SERVICES 7088 OTHER 04-18-2011 [facility]RT[facility] P 7802 SYNCOPE AND 04-18-2011 [facility] COLLAPSE [facility]ERGENCY SERVICES 56270 ABDOMINAL 04-18-2011 [facility] EP[facility] V762 SCREENING 11-16-2010 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 5210 DENTAL 09-19-2010 THE IMPLANT CARIES & ORAL SURGERY C 5258 OTHER SPEC 09-19-2010 THE IMPLANT DISORDERS & ORAL TEETH&SUPPO SURGERY C RTING STRUCTURES 79004 OTHER 05-25-2010 [facility] OLOGYAS 28457 OTHER SPEC 05-25-2010 [facility] WITHOUT OLOGYAS MENTION HEMORRHAGE 80510 ESOPHAGEAL 05-24-2010 [facility] REFLUX GASTROENTER OLOGYAS 42984 LOSS OF 05-24-2010 [facility] WEIGHT GASTROENTER OLOGYAS 7871 HEARTBURN 05-24-2010 [facility] GASTROENTER OLOGYAS 52640 NONSPECIFIC 05-20-2010 [facility] IOGRAM 3670 HYPERMETROP 03-15-2009 SHEWMAKER FERNANDEZ JESSICA COD 04956 DIARRHEA 01-14-2009 [facility] 52933 UNSPECIFIED 01-14-2009 [facility] 6929 CONTACT 09-07-2008 ARNOLD, DERMATITIS& VLAD W OTHER ECZEMA DUE UNSPEC CAUSE 4659 ACUTE URIS 07-01-2008 [facility] 7881 DYSURIA 07-01-2008 [facility] [employer] I89.0 LYMPHEDEMA, NOT ELSEWHERE CLASSIFIED L03.90 [...] 7- 7- 00 CA 76 LD ve NM 37 20 20 RE 5 AM 30 [...] -3 -3 .0 D 90 NO ti NM 62 1- 1 CA 13 LD ve [...] -0 -0 .0 D 75 NO ti NM 62 3- 3- 00 CA 51 LD [...] 8- 7- 00 ER 21 ER ve NM 34 20 20 0 AM 40 09 [...] 0- 0- 00 ER 35 G- ve NM 34 20 20 0 TH AM 40 09 09 PH OM 5 AR HB MA R CY LE 40 A 14 MG 39 2 TA BL ET SHHAID 00 03 07 01 30 30 KR [...] 0- 1- 00 ER 35 G- ve NM 34 20 20 0 TH AM 40 [...] 0- 3- 00 IC 85 G- ve NM 50 20 20 TH AM 98 09 [...] 0- 6- 00 IC 85 G- ve NM 50 20 20 TH AM 98 09 [...] Procedure DOS Code Location Performer Comment COLLECTIO 29787 COMBINED COMBINED N VENOUS 7 PHYSICIAN PHYSICIAN BLOOD S LAB S LAB VENIPUNCT URE BASIC 88075 COMBINED COMBINED METABOLIC 7 PHYSICIAN PHYSICIAN PANEL S LAB S LAB CALCIUM TOTAL TRAVEL [address] MED 7 PHYSICIAN PHYSICIAN NEC LAB S LAB S LAB SPEC; PRORATD TRIP CHRG HOS BED E0303 MIC LOPEZ DUTY 7 HOME HOME W/WT [facility] >350 EQUIPME EQUIPME PDS</=TO 600 PDS NONEMERG A0120 FEDERATED FEDERATED TRNSPRT: 7 [facility] TRANSPORT [facility] NONEMERG A0120 FEDERATED FEDERATED TRNSPRT: 7 MINI-BUS TRANSPORT TRANSPORT MTN [facility]/OT SYS NONEMERG A0120 FEDERATED FEDERATED TRNSPRT: 7 [facility] TRANSPORT [facility] BASIC 03205 COMBINED COMBINED METABOLIC 7 PHYSICIAN PHYSICIAN PANEL S LA S LA CALCIUM TOTAL COLLECTIO 61937 COMBINED COMBINED N VENOUS 7 PHYSICIAN PHYSICIAN BLOOD S LA S LA VENIPUNCT URE TRAVEL [address] MED 7 PHYSICIAN PHYSICIAN NEC LAB S LA S LA SPEC; PRORATD TRIP CHRG NONEMERG A0120 FEDERATED FEDERATED TRNSPRT: 7 MINI-BUS TRANSPORT [facility]ORT [facility] COLLECTIO 23826 COMBINED COMBINED N VENOUS 7 PHYSICIAN PHYSICIAN BLOOD S LA S LA VENIPUNCT URE BASIC 30567 COMBINED COMBINED METABOLIC 7 PHYSICIAN PHYSICIAN PANEL S LA S LA CALCIUM TOTAL TRAVEL [address] MED 7 PHYSICIAN PHYSICIAN NEC LAB S LA S LA SPEC; PRORATD TRIP CHRG BASIC 65404 COMBINED COMBINED METABOLIC 7 PHYSICIAN PHYSICIAN PANEL S LA S LA CALCIUM TOTAL COLLECTIO 18137 COMBINED COMBINED N VENOUS 7 PHYSICIAN PHYSICIAN BLOOD S LA S LA VENIPUNCT URE TRAVEL [address] MED 7 PHYSICIAN PHYSICIAN NEC LAB S LA S LA SPEC; PRORATD TRIP CHRG HEMOGLOBI 40399 COMBINED COMBINED N 7 PHYSICIAN PHYSICIAN GLYCOSYLA [...] ATION SER ATION SER AREA/OTH SYS COLLECTIO 54483 COMBINED COMBINED N VENOUS 7 PHYSICIAN PHYSICIAN BLOOD S LA S LA VENIPUNCT URE BASIC 35258 COMBINED COMBINED METABOLIC 7 PHYSICIAN PHYSICIAN PANEL S LA S LA CALCIUM TOTAL TRAVEL [address] MED 7 PHYSICIAN PHYSICIAN NEC LAB S LA S LA SPEC; PRORATD TRIP CHRG VOLUME 27497 COMBINED COMBINED MEASUREME 6 PHYSICIAN PHYSICIAN NT TIMED [place] [address] COMBINED COMBINED THYROID 6 PHYSICIAN PHYSICIAN STIMULATI S LA S LA NG HORMONE TSH LIPID 47371 COMBINED COMBINED PANEL 6 PHYSICIAN PHYSICIAN S LA S LA BASIC 29051 COMBINED COMBINED METABOLIC 6 PHYSICIAN PHYSICIAN PANEL S LA S LA CALCIUM TOTAL URNLS DIP 54555 COMBINED COMBINED 6 PHYSICIAN PHYSICIAN STICK/TAB S LA S LA LET REAGENT AUTO MICROSCOP Y HEMOGLOBI 88830 COMBINED COMBINED N 6 PHYSICIAN PHYSICIAN GLYCOSYLA S LA S LA JULISA A1C NONEMERG A0120 FEDERATED FEDERATED TRNSPRT: 6 MINI-BUS TRANSPORT TRANSPORT MTN ATION SER ATION SER AREA/OTH SYS NONEMERG A0120 FEDERATED FEDERATED TRNSPRT: 6 MINI-BUS TRANSPORT TRANSPORT MTN ATION SER ATION SER AREA/OTH SYS NONEMERG A0120 FEDERATED FEDERATED TRNSPRT: 6 MINI-BUS TRANSPORT TRANSPORT MTN ATION SER ATION SER AREA/OTH SYS PARING/CU 12275 JUANA ARIAS TTING 6 BENIGN HYPERKERA TOTIC LESION 2-4 TRIMMING 83994 JUANA ARIAS NONDYSTRO 6 PHIC NAILS ANY NUMBER DEBRIDEME 34267 BRAUDIS BRAUDIS NT NAIL 6 ANY METHOD 1-5 DUP-SCAN 84404 BRIAN ROSELYN XTR VEINS 6 MEDICAL [facility] UNILATERA ASS L/LIMITED STUDY ECHO 69265 JAMESON HAILE TTHRC R-T 6 MEDICAL NOAM 2D SERV W/WOM-MOD FOUNDATIO E COMPL N SPEC&COLR D GROUND A0425 [facility] MILEAGE 6 AMBULANCE AMBULANCE PER SERVICE SERVICE STATUTE MILE AMBULANCE A0429 [facility] SERVICE 6 AMBULANCE AMBULANCE BLS SERVICE SERVICE EMERGENCY TRANSPORT TRIMMING 48926 TRACYUDIS BRAUDIS NONDYSTRO 6 JAM JAM PHIC NAILS ANY NUMBER PARING/CU 03476 BRAUDIS BRAUDIS TTING 6 JAM JAM BENIGN HYPERKERA TOTIC LESION >4 DEBRIDEME 75556 TRACYUDIS BRAUDIS NT NAIL 6 JAM JAM ANY METHOD 1-[address] TRAVEL [address] MED 6 PHYSICIAN PHYSICIAN NEC LAB S LA S LA SPEC; PRORATD TRIP CHRG BASIC 83446 COMBINED COMBINED METABOLIC 6 PHYSICIAN PHYSICIAN PANEL S LA S LA CALCIUM TOTAL COLLECTIO 47154 COMBINED COMBINED N VENOUS 6 PHYSICIAN PHYSICIAN BLOOD S LA S LA VENIPUNCT URE COLLECTIO 60109 COMBINED COMBINED N VENOUS 6 PHYSICIAN PHYSICIAN BLOOD S LA S LA VENIPUNCT URE TRAVEL [address] MED 6 PHYSICIAN PHYSICIAN NEC LAB S LA S LA SPEC; PRORATD TRIP CHRG HEMOGLOBI 44746 COMBINED COMBINED N 6 PHYSICIAN PHYSICIAN GLYCOSYLA S LA S LA JULISA A1C TRIMMING 27260 BRAUDIS BRAUDIS NONDYSTRO 6 JAM JAM PHIC NAILS ANY NUMBER PARING/CU 45583 BRAUDIS BRAUDIS TTING 6 JAM JAM BENIGN HYPERKERA TOTIC LESION >4 DEBRIDEME 85563 BRAUDIS BRAUDIS NT NAIL 6 JAM JAM [...] [employer] DNSITY INSRT HEMOGLOBI 77779 COMBINED COMBINED N 6 PHYSICIAN PHYSICIAN GLYCOSYLA S LA S LA JULISA A1C TRAVEL [address] MED 6 PHYSICIAN PHYSICIAN NEC LAB S LA S LA SPEC; PRORATD TRIP CHRG COLLECTIO 66865 COMBINED COMBINED N VENOUS 6 PHYSICIAN PHYSICIAN BLOOD S LA S LA VENIPUNCT URE COLLECTIO 76176 COMBINED COMBINED N VENOUS 5 PHYSICIAN PHYSICIAN BLOOD S LA S LA VENIPUNCT URE BASIC 03318 COMBINED COMBINED METABOLIC 5 PHYSICIAN PHYSICIAN PANEL [...] S LA SPEC; PRORATD TRIP CHRG HEMOGLOBI 10931 COMBINED COMBINED N 5 PHYSICIAN PHYSICIAN GLYCOSYLA S LA S LA JULISA A1C COLLECTIO 43234 COMBINED COMBINED N VENOUS 5 PHYSICIAN PHYSICIAN BLOOD S LA S LA VENIPUNCT URE URNLS DIP 99593 COMBINED COMBINED 5 PHYSICIAN PHYSICIAN STICK/TAB S LA S LA LET REAGENT AUTO MICROSCOP Y VOLUME 49448 COMBINED COMBINED MEASUREME 5 PHYSICIAN PHYSICIAN NT TIMED S LA S LA COLLECTIO N EACH PARING/CU 82461 JUANA ARIAS TTING 5 JAM JAM BENIGN HYPERKERA TOTIC LESION >4 DEBRIDEME 74406 JUANA ARIAS NT NAIL 5 JAM JAM ANY METHOD 1-5 TRIMMING 88076 TRACYUDIJordan ARIAS NONDYSTRO 5 JAM JAM PHIC NAILS ANY NUMBER COLLECTIO 00979 COMBINED COMBINED N VENOUS 5 PHYSICIAN PHYSICIAN BLOOD S LA S LA VENIPUNCT URE TRAVEL [address] MED 5 PHYSICIAN PHYSICIAN NEC LAB S LA S LA SPEC; PRORATD TRIP CHRG HEMOGLOBI 35047 COMBINED COMBINED N 5 PHYSICIAN PHYSICIAN GLYCOSYLA S LA S LA JULISA A1C TRAVEL [address] MED 5 PHYSICIAN PHYSICIAN NEC LAB S LA S LA SPEC; PRORATD TRIP CHRG COLLECTIO 08007 COMBINED COMBINED N VENOUS 5 PHYSICIAN PHYSICIAN BLOOD S LA S LA VENIPUNCT URE HEMOGLOBI 74951 COMBINED COMBINED N 5 PHYSICIAN PHYSICIAN GLYCOSYLA S LA S LA JULISA A1C NONEMERG A0120 FEDERATED FEDERATED TRNSPRT: 5 MINI-BUS TRANSPORT TRANSPORT MTN [facility] SER [facility]/OT SYS FOR DIAB A5512 [facility] ONLY MX 5 MEDICAL MEDICAL DNSITY SUPPLY SUPPLY [employer] FORMD PRFAB EA DIAB ONLY A5500 [facility] FIT CSTM 5 MEDICAL MEDICAL PREP&SPL SUPPLY SUPPLY [employer] DNSITY INSRT COLLECTIO 04175 COMBINED COMBINED N VENOUS 5 PHYSICIAN PHYSICIAN BLOOD S LA S LA VENIPUNCT URE BASIC 95062 COMBINED COMBINED METABOLIC 5 PHYSICIAN PHYSICIAN PANEL S LA S LA CALCIUM TOTAL TRAVEL [address] MED 5 PHYSICIAN PHYSICIAN NEC LAB S LA S LA SPEC; PRORATD TRIP CHRG COLLECTIO 15951 COMBINED COMBINED N VENOUS 5 PHYSICIAN PHYSICIAN BLOOD S LA S LA VENIPUNCT URE TRAVEL [address] MED 5 PHYSICIAN PHYSICIAN NEC LAB S LA S LA SPEC; PRORATD TRIP CHRG HEMOGLOBI 96133 COMBINED COMBINED N 5 PHYSICIAN PHYSICIAN GLYCOSYLA S LA S LA JULISA A1C DIAB ONLY A5500 [facility] FIT CSTM 4 MEDICAL MEDICAL PREP&SPL SUPPLY SUPPLY [employer] DNSITY INSRT FOR DIAB A5512 [facility] ONLY MX 4 MEDICAL MEDICAL DNSITY SUPPLY SUPPLY [employer] FORMD PRFAB EA PARING/CU 06916 JUANA ARIAS TTING 4 JAM JAM BENIGN HYPERKERA TOTIC LESION 2-4 TRIMMING 28899 BRAUDIS BRAUDIS NONDYSTRO 4 JAM JAM PHIC NAILS ANY NUMBER DEBRIDEME 93523 BRAUDIS BRAUDIS NT NAIL 4 JAM JAM ANY METHOD 1-5 COLLECTIO 35097 COMBINED COMBINED N VENOUS 4 PHYSICIAN PHYSICIAN BLOOD S LA S LA VENIPUNCT URE HEMOGLOBI 40028 COMBINED COMBINED N 4 PHYSICIAN PHYSICIAN GLYCOSYLA S LA S LA JULISA A1C TRAVEL [address] MED 4 PHYSICIAN PHYSICIAN NEC LAB S LA S LA SPEC; PRORATD TRIP CHRG TRAVEL [address] MED 4 PHYSICIAN PHYSICIAN NEC LAB S LA S LA SPEC; PRORATD TRIP CHRG HEMOGLOBI 17737 COMBINED COMBINED N 4 PHYSICIAN PHYSICIAN GLYCOSYLA S LA S LA JULISA A1C COLLECTIO 85209 COMBINED COMBINED N VENOUS 4 PHYSICIAN PHYSICIAN BLOOD S LA S LA VENIPUNCT URE COLLECTIO 07487 COMBINED COMBINED N VENOUS 4 PHYSICIAN PHYSICIAN BLOOD S LA S LA VENIPUNCT URE BASIC 37702 COMBINED COMBINED METABOLIC 4 PHYSICIAN PHYSICIAN PANEL S LA S LA CALCIUM TOTAL TRAVEL [address] MED 4 PHYSICIAN PHYSICIAN NEC LAB S LA S LA SPEC; PRORATD TRIP CHRG HEMOGLOBI 12618 COMBINED COMBINED N 4 PHYSICIAN PHYSICIAN GLYCOSYLA S LA S LA JULISA A1C TRAVEL [address] MED 4 PHYSICIAN PHYSICIAN NEC LAB S LA S LA SPEC; PRORATD TRIP CHRG COLLECTIO 17385 COMBINED COMBINED N VENOUS 4 PHYSICIAN PHYSICIAN BLOOD S LA S LA VENIPUNCT URE TRIMMING 70240 BRAUDIS BRAUDIS NONDYSTRO 4 JAM JAM PHIC NAILS ANY NUMBER PARING/CU 85244 BRAUDIS BRAUDIS TTING 4 JAM JAM BENIGN HYPERKERA TOTIC LESION >4 DEBRIDEME 83677 BRAUDIS BRAUDIS NT NAIL 4 JAM JAM ANY METHOD 1-5 HEMOGLOBI 52461 COMBINED COMBINED N 4 PHYSICIAN PHYSICIAN GLYCOSYLA S LA S LA JULISA A1C TRAVEL [address] MED 4 PHYSICIAN PHYSICIAN NEC LAB S LA S LA SPEC; PRORATD TRIP CHRG COLLECTIO 37359 COMBINED COMBINED N VENOUS 4 PHYSICIAN PHYSICIAN BLOOD S LA S LA VENIPUNCT URE NONEMERG A0120 FEDERATED FEDERATED TRNSPRT: 4 MINI-BUS TRANSPORT TRANSPORT MTN [facility]/OT SYS COLLECTIO 37560 COMBINED COMBINED N VENOUS 3 PHYSICIAN PHYSICIAN BLOOD S LA S LA VENIPUNCT URE BASIC 81450 COMBINED COMBINED METABOLIC 3 PHYSICIAN PHYSICIAN PANEL S LA S LA CALCIUM TOTAL NONEMERG A0120 FEDERATED FEDERATED TRNSPRT: 3 [facility] ADMINIST[facility] G0008 YUDY YUDY ATION OF 3 [facility] INFLU[facility] CENTER VIRUS VACCINE INFLUENZA Q2038 YUDY YUDY VACC 3 [facility] SPLIT CENTER CENTER VIRUS 3 YRS & > IM FLUZONE TRIMMING 51989 JUANA JIMENEZS NONDYSTRO 3 JAM JAM PHIC NAILS ANY NUMBER PARING/CU 95661 BRAUDIS BRAUDIS TTING 3 JAM JAM BENIGN HYPERKERA TOTIC LESION 2-4 DEBRIDEME 93934 JUANA MOLINAUDIS NT NAIL 3 JAM JAM ANY METHOD 1-5 HEMOGLOBI 83704 COMBINED COMBINED N 3 PHYSICIAN PHYSICIAN GLYCOSYLA S LA S LA JULISA A1C COLLECTIO 22364 COMBINED COMBINED N VENOUS 3 PHYSICIAN PHYSICIAN BLOOD S LA S LA VENIPUNCT URE NONEMERG A0120 LKLP CAC LKLP CAC TRNSPRT: 3 INC INC MINI-BUS REGION 11 REGION 11 [facility]/OT SYS BASIC 00306 COMBINED COMBINED METABOLIC 3 PHYSICIAN PHYSICIAN PANEL S LA S LA CALCIUM TOTAL COLLECTIO 73366 COMBINED COMBINED N VENOUS 3 PHYSICIAN PHYSICIAN BLOOD S LA S LA VENIPUNCT URE HEMOGLOBI 05478 COMBINED COMBINED N 3 PHYSICIAN PHYSICIAN GLYCOSYLA S LA S LA JULISA A1C TRAVEL [address] MED 3 PHYSICIAN PHYSICIAN NEC LAB S LA S LA SPEC; PRORATD TRIP CHRG TRANS R0070 EXPRESS EXPRESS PRTBL 3 MOBILE MOBILE X-RAY DIAGNOSTI DIAGNOSTI EQP&PERS C SE C SE LINDSEY/NRS LINDSEY-TRIP 1 PT RADIOLOGI 55016 EXPRESS EXPRESS C EXAM 3 MOBILE MOBILE CHEST 2 DIAGNOSTI DIAGNOSTI VIEWS C SE C SE FRONTAL&L ATERAL SET-UP Q0092 EXPRESS EXPRESS PORTABLE 3 MOBILE MOBILE X-RAY DIAGNOSTI DIAGNOSTI EQUIPMENT C SE C SE TRAVEL [address] MED 3 PHYSICIAN PHYSICIAN NEC LAB S LA S LA SPEC; PRORATD TRIP CHRG HEMOGLOBI 00600 COMBINED COMBINED N 3 PHYSICIAN PHYSICIAN GLYCOSYLA S LA S LA JULISA A1C COLLECTIO 73513 COMBINED COMBINED N VENOUS 3 PHYSICIAN PHYSICIAN BLOOD S LA S LA VENIPUNCT URE TRIMMING 32786 JUANA JIMENEZS NONDYSTRO 3 JAM JAM PHIC NAILS ANY NUMBER DEBRIDEME 50009 BRAUDIS BRAUDIS NT NAIL 3 JAM JAM ANY METHOD 1-5 TRAVEL [address] MED 2 PHYSICIAN PHYSICIAN NEC LAB S LA S LA SPEC; PRORATD TRIP [facility] 36231 COMBINED COMBINED METABOLIC 2 PHYSICIAN PHYSICIAN PANEL S LA S LA CALCIUM TOTAL COLLECTIO 07788 COMBINED COMBINED N VENOUS 2 PHYSICIAN PHYSICIAN BLOOD S LA S LA VENIPUNCT URE AMBULANCE A0429 [facility] SERVICE 2 AMBULANCE AMBULANCE BLS SERVICE SERVICE EMERGENCY TRANSPORT GROUND A0425 [facility] MILEAGE 2 AMBULANCE AMBULANCE PER SERVICE SERVICE STATUTE MILE NONEMERG A0120 LKLP LKLP TRNSPRT: 2 [facility] ACTION ACTION MTN AREA/OTH SYS COLLECTIO 74425 COMBINED COMBINED N VENOUS 2 PHYSICIAN PHYSICIAN BLOOD S LA S LA VENIPUNCT URE HEMOGLOBI 11696 COMBINED COMBINED N 2 PHYSICIAN PHYSICIAN GLYCOSYLA S LA S LA JULISA A1C TRAVEL [address] MED 2 PHYSICIAN PHYSICIAN NEC LAB S LA S LA SPEC; PRORATD TRIP CHRG DEBRIDEME 70114 BRAUDIS BRAUDIS NT NAIL 2 JAM JAM ANY METHOD 1-5 PARING/CU 98007 JUANA JIMENEZS TTING 2 JAM JAM BENIGN HYPERKERA TOTIC LESION 1 TRIMMING 85235 JUANA JIMENEZS NONDYSTRO 2 JAM JAM PHIC NAILS ANY NUMBER INFLUENZA Q2038 YUDY JIMENES VACC 2 [facility] VIRUS 3 YRS & > IM FLUZONE ADMINISTR G0008 YUDY JIMENES ATION OF 2 [facility] [place] VIRUS VACCINE TRIMMING 75874 JUANA JIMENEZS NONDYSTRO 2 JAM JAM PHIC NAILS ANY NUMBER DEBRIDEME 10699 JUANA JIMENEZS NT NAIL 2 JAM JAM ANY METHOD 1-5 TRAVEL [address] MED 2 PHYSICIAN PHYSICIAN NEC LAB S LA S LA SPEC; PRORATD TRIP CHRG COLLECTIO 81599 COMBINED COMBINED N VENOUS 2 PHYSICIAN PHYSICIAN BLOOD S LA S LA VENIPUNCT URE HEMOGLOBI 28701 COMBINED COMBINED N 2 PHYSICIAN PHYSICIAN GLYCOSYLA S LA S LA JULISA A1C PARING/CU 04974 JUANA JIMENEZS TTING 2 JAM JAM BENIGN HYPERKERA TOTIC LESION 1 RADIOLOGI 86702 [facility] C 2 Vesti[facility] EXAMINATI ON KNEE 3 [place] [address] LAB LUCY LAB LUCY IRON 2 [employer] SET-UP Q0092 [facility] PORTABLE 2 [facility] X-RAY EQUIPMENT TRANS R0070 [facility] PRTBL 2 [facility] X-RAY EQP&PERS LINDSEY/NRS LINDSEY-TRIP 1 PT TRAVEL [address] MED 2 PHYSICIAN PHYSICIAN NEC LAB S LA S LA SPEC; PRORATD TRIP CHRG COLLECTIO [id number] COMBINED COMBINED N VENOUS 2 PHYSICIAN PHYSICIAN BLOOD S LA S LA VENIPUNCT URE TRIMMING 04893 JUANA JIMENEZS NONDYSTRO 2 JAM JAM PHIC NAILS ANY NUMBER DEBRIDEME 65150 JUANA JIMENEZS NT NAIL 2 JAM JAM ANY METHOD 1-5 BX SKIN 90875 DERMATOLO FINK-WEB SUBCUTANE 2 GY B RAYMOND OUS&/MUCO CONSULTAN US TS PSC MEMBRANE 1 LESION NONEMERG A0120 LKLP LKLP TRNSPRT: 2 COMMUNITY COMMUNITY MINI-BUS ACTION ACTION MTN AREA/OTH SYS DESTRUCTI 42479 DERMATOLO FINK-WEB ON BENIGN 2 GY B RAYMOND LESIONS CONSULTAN UP TO 14 [place] [address] DERMATOLO BRITTON II SURG 2 GY TERRY PATHOLOGY CONSULTAN TS PSC GROSS&SEJAL ROSCOPIC EXAM HEMOGLOBI 60997 COMBINED COMBINED N 2 PHYSICIAN PHYSICIAN GLYCOSYLA S LA S LA JULISA A1C TRAVEL [address] MED 2 PHYSICIAN PHYSICIAN NEC LAB S LA S LA SPEC; PRORATD TRIP CHRG COLLECTIO 99849 COMBINED COMBINED N VENOUS 2 PHYSICIAN PHYSICIAN BLOOD S LA S LA VENIPUNCT URE SET-UP Q0092 [facility] PORTABLE 1 [facility] X-RAY EQUIPMENT TRANS R0070 [facility] PRTBL 1 [facility] X-RAY EQP&PERS LINDSEY/NRS LINDSEY-TRIP 1 PT RADEX HIP 58453 [facility] 1 [facility] UNILATERA L COMPLETE MINIMUM 2 VIEWS GROUND A0425 [facility] MILEAGE 1 AMBULANCE AMBULANCE PER SERVICE SERVICE STATUTE MILE AMBULANCE A0429 [facility] SERVICE 1 AMBULANCE AMBULANCE BLS SERVICE SERVICE EMERGENCY TRANSPORT SUSCEPTIB 44026 [facility] LTY STDY 1 [facility] ANTIMICRB INC INC IAL MICRO/AGA R DILUTJ CUL BACT 78741 [facility] XCPT 1 [facility] URINE INC INC BLOOD/STO OL AEROBIC ISOL CUL BACT 66171 [facility] AEROBIC 1 [facility] ADDL INC INC METHS DEFINITIV E EA ISOL BLOOD 64364 Y[facility] JIMENES OCCULT 1 [facility] PEROXIDAS INC INC E ACTV QUAL FECES 1-3 SPEC ECG 20437 [facility] ROUTINE 1 [facility] ECG INC INC W/LEAST 12 LDS TRCG ONLY W/O I&R CREATINE 21892 [facility] KINASE 1 [facility] [place] [address] [facility] LIPASE 1 [facility] INC INC COMPREHEN 73494 Y[facility] SIVE 1 [facility] [place] [address] YUD[facility] J[facility] INFUSION 1 [facility] THERAPY/P INC INC ROPHYLAXI S /DX 1ST TO 1 HR ECG 33072 JAMIL DELGADO ROUTINE 1 EMERGENCY III DEVON ECG SERVICES W/LEAST 12 LDS I&[place] [address] [facility] TROPONIN 1 [facility] QUANTITAT INC INC KAILASH BLOOD 89805 [facility] COUNT 1 [facility] COMPLETE INC INC AUTO&[place] [address] [facility] INFUSION 1 [facility] HYDRATION INC INC EACH ADDITIONA L HOUR CREATINE 51973 Y[facility] JIMENES KINASE MB 1 [facility] FRACTION INC INC ONLY BLOOD 21801 COMBINED COMBINED COUNT 1 PHYSICIAN PHYSICIAN COMPLETE S LA S LA AUTO&AUTO DIFRNTL WBC COMPREHEN 29197 COMBINED COMBINED SIVE 1 PHYSICIAN PHYSICIAN METABOLIC S LA S LA PANEL TRAVEL [address] MED 1 PHYSICIAN PHYSICIAN NEC LAB S LA S LA SPEC; PRORATD TRIP CHRG LIPID 12128 COMBINED COMBINED PANEL 1 PHYSICIAN PHYSICIAN S LA S LA COLLECTIO 87691 COMBINED COMBINED N VENOUS 1 PHYSICIAN PHYSICIAN BLOOD S LA S LA VENIPUNCT URE ADMINISTR G0008 YUDY JIMENES ATION OF 1 [facility] VIRUS VACCINE INFLUENZA Q2038 YUDY JIMENES VACC 1 [facility] S[facility] CENTER VIRUS 3 YRS & > IM FLUZONE SCR G0145 PATHOLOGY PATHOLOGY CYTOPATH 1 & & CERV/VAG CYTOLOGY CYTOLOGY SCR LAB LAB AUTO&MNL RSCR PHYS NONEMERGE A0100 [facility] [place] [facility] 1 COMMUNITY TRANSPORT ACTION ATION; TAXI COLLECTIO 08665 COMBINED COMBINED N VENOUS 1 PHYSICIAN PHYSICIAN BLOOD S LA S LA VENIPUNCT URE TRAVEL [address] MED 1 PHYSICIAN PHYSICIAN NEC LAB S LA S LA SPEC; PRORATD TRIP CHRG GLUCOSE 36778 COMBINED COMBINED QUANTITAT 1 PHYSICIAN PHYSICIAN KAILASH BLOOD S LA S LA XCPT REAGENT STRIP HEMOGLOBI 14501 COMBINED COMBINED N 1 PHYSICIAN PHYSICIAN GLYCOSYLA S LA S LA JULISA A1C NONEMERGE A0100 [facility] 1 COMMUNITY TRANSPORT ACTION ATION; TAXI NONEMERGE A0100 [facility] 1 COMMUNITY TRANSPORT ACTION ATION; TAXI DEEP D9220 THE SHE SEDATION/ 1 IMPLANT & III LANA GENERAL ORAL ANESTHESI SURGERY C A-1ST 30 MINUTES ALVEOLOPL 53948 THE SHE ASTY EACH 1 IMPLANT & III LANA QUADRANT ORAL SPECIFY SURGERY C ORTHOPANT 82618 THE SHE OGRAM 1 IMPLANT & III LANA ORAL SURGERY C NONEMERGE A0100 [facility] 1 COMMUNITY TRANSPORT ACTION ATION; TAXI NONEMERGE A0100 [facility] 1 COMMUNITY TRANSPORT ACTION ATION; TAXI EGD 70806 [facility] TRANSORAL 0 ROSS BIOPSY GASTROENT SINGLE/MU EROLOGYAS LTIPLE INITIAL 28967 [facility] INPATIENT 0 ROSS CONSULT GASTROENT NEW/ESTAB EROLOGYAS PT [address] A[facility]UTOSH ROUTINE 0 ALBERT THE ECG MED CTR W/LEAST 12 LDS I&R ONLY DETERMINA 71307 JASMIN SUBLER, TION 9 JESSICA GO MITZY REFRACTIV E STATE OPHTH 85724 JASMIN SUBLER, MEDICAL 9 JESSICA DONAVAN MITZY XM&EVAL COMPRE NEW PT 1/> VST SBSQ 89685 RANDOLPH DICKSON, NURSING 9 VLAD CHU W FACIL CARE/DAY MINOR COMPLJ 15 MIN URNLS DIP 65971 [facility], 9 POINT CARO D STICK/TAB FAMILY LET RGNT CARE, AUTO W/O INC. MICROSCOP Y Encounters Encounter Start End Date Code Location Performer Type Date OFFICE 65155 [facility] [place] OUTPATIEN 7 7 PHYSICIAN T VISIT S GROUP 15 MINUTES OFFICE 05338 [facility] [place] OUTPATIEN 7 7 PHYSICIAN T VISIT S GROUP 10 MINUTES OFFICE 94144 [facility] OUTPATIEN 7 7 Y OF T NEW 30 [place] MINUTES HOSPI OFFICE 63581 [facility] JET OUTPATIEN 6 6 PHYSICIAN T VISIT S GROUP 10 MINUTES OFFICE 96620 [facility] JET TOD OUTPATIEN 6 6 PHYSICIAN T VISIT S GROUP 10 MINUTES OFFICE 76387 [facility] JET TOD OUTPATIEN 6 6 PHYSICIAN T NEW 20 S GROUP MINUTES OFFICE 81334 [facility] [place]IS OUTPATIEN 6 6 PHYSICIAN QUIRINO T VISIT S GROUP 15 MINUTES EMERGENCY 48472 [facility] 2 2 [facility] DEPARTMEN INC T VISIT LIMITED/M INOR PROB EMERGENCY 87138 JAMIL JONES 2 2 EMERGENCY DEPARTMEN SERVICES T VISIT HIGH/URGE NT SEVERITY [facility]OSP[facility] - [facility] OUTPATIEN INC T OFFICE 38751 DERMATOLO FINK-WEB OUTPATIEN 2 2 GY B RAYMOND T CONSULTAN MINUTES [facility] EMERGENCY 33213 YUDY 1 1 [facility] DEPARTMEN INC T VISIT HIGH/URGE NT SEVERITY [facility]OSPITAL [facility] - 1 1 [facility] T EMERGENCY 08360 [facility] 1 1 [facility] DEPARTMEN INC T VISIT HIGH/URGE NT SEVERITY EMERGENCY 47851 JAMIL DELGADO DEPT 1 1 EMERGENCY III DEVON VISIT SERVICES HIGH SEVERITY& THREAT [facility] YUDY - 1 1 [facility] OUTPATIEN INC T OFFICE 43567 THE SHE OUTPATIEN 1 1 IMPLANT & III LANA T NEW 20 ORAL MINUTES SURGERY C OFFICE 79365 [facility] 9 9 PO[address] Mina T VISIT [facility] 15 CARE, MINUTES INC. OFFICE 47882 [facility] 9 9 [address] [place] Amin VISIT [facility] 15 CARE, MINUTES INC.
[2017-04-07] MEDS ORDERED: LACTULOSE10 GM/15 M PO (15:45)
[2017-04-07] MEDS ORDERED: LORATADINE 10MG10 M1 PO (15:45)
--- OUTSIDE RECORDS SUMMARY | 2017-04-07 15:52 | External Medical Summary Rpt | CCD ---
Author Author , JET Organization JET Address Unknown Phone [email or web address] Care Team Providers Care Manager Of Learning Name Role Phone VLAD DICKSON, Unavailable Unavailable VLAD DICKSON MALLY, BESSON Unavailable Unavailable MALLY BRAUDIS, BRAUDIS Unavailable Unavailable BRAUDIS, BRAUDIS Unavailable Unavailable BRAUDIS JAM, BRAUDIS Unavailable Unavailable JAM BRAUDIS JAM, BRAUDIS Unavailable Unavailable JAM [facility] Unavailable Unavailable SERVICE, [facility] Unavailable Unavailable SERVICE, [facility] [place] [facility], [facility] Unavailable Unavailable DAVIS QUIRINO, DAVIS [...] [facility] Unavailable Unavailable LLC, [facility] Unavailable Unavailable LLC, [facility] Unavailable Unavailable DIAGNOSTIC SE, [facility] Unavailable Unavailable DIAGNOSTIC SE, [facility] FEDERATED Unavailable Unavailable TRANSPORTATION SER, [facility] FLORES, FLORES Unavailable Unavailable MANSOOR SEJAL, MANSOOR Unavailable Unavailable SEJAL HARRIET, ALE Unavailable Unavailable I, HARRIET, ALE I FINK-BLANDON RAYMOND, Unavailable Unavailable FINK-BLANDON RAYMOND [facility] Unavailable Unavailable [place], [facility] Unavailable Unavailable [place], [facility] Unavailable Unavailable INC, [facility] Unavailable Unavailable HOSPITAL P, [facility] P [facility], Unavailable Unavailable [facility] Unavailable Unavailable [facility], [facility] THE, [facility] Unavailable Unavailable [facility] Unavailable Unavailable [id number], [facility] [id number] [facility] Un[facility], [facility] Unavailable Unavailable HOLD[facility], [facility] YARI GREENBERG Unavailable Unavailable [facility] Unavailable Unavailable 11, [facility] 11 [facility] Unavailable Unavailable ACTION, [facility] Unavailable Unavailable SERVICES, [facility] SANDRA LUCIEN, SANDRA Unavailable Unavailable [facility] Un[facility], [facility] Unavailable Unavailable LAB, [facility] Unavailable Unavailable LAB, [facility] NOWAK, III LANA, Unavailable Unavailable NOWAK, III LANA [facility], Unavailable Unavailable [facility] [...] THE IMPLANT & ORAL SURGERY C [facility] Unavailable Unavailable GASTROENTEROLOGYAS, [facility]ENTER[facility] Unavailable [facility] [place] [facility] CARO LUCIO, Unavailable Unavailable CARO LUCIO [facility] Unavailable Unavailable DEPT DAVE, [facility] DANNY III DEVON, Unavailable Unavailable DANNY III REECE KULKARNI Unavailable Unavailable Purpose Continuity of Care Document - 06-24-2008 through 2016 Problems Code Diagnosis DOS Provider Status I10 ESSENTIAL 01-31-2017 [facility] HYPERTENSIO LAB N M5030 OTH 01-28-2017 [facility] DISC MEDICAL DEGENERATIO EQUIPME N UNS CERV REGION R69 ILLNESS 01-16-2017 [facility] UNSPECIFIED TRANSPORTAT ION SER H6091 UNSPECIFIED 11-14-2016 [facility] OTITIS PHYSICIANS EXTERNA GROUP RIGHT EAR H6533 CHRONIC 11-14-2016 [facility] MUCOID PHYSICIANS OTITIS GROUP MEDIA BILATERAL R7301 IMPAIRED 10-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 [facility] FASTING PHYSICIANS GLUCOSE LA B25485 UNS ACUTE 09-27-2016 [facility] NONINFECTIV PHYSICIANS E OTITIS GROUP EXTERNA UNS EAR H6691 OTITIS 09-27-2016 [facility] MEDIA PHYSICIANS UNSPECIFIED GROUP RIGHT EAR E119 TYPE 2 09-18-2016 [facility] WITHOUT COMPLICATIO NS R7303 PREDIABETES 07-26-2016 [facility] HOSPI E039 HYPOTHYROID 06-21-2016 [facility] ISM PHYSICIANS UNSPECIFIED LA E785 HYPERLIPIDE 06-21-2016 [facility] BREN PHYSICIANS UNSPECIFIED LA R300 DYSURIA 06-21-2016 [facility] PHYSICIANS LA O60982 CUTANEOUS 06-06-2016 [facility] ABSCESS OF PHYSICIANS LEFT LOWER GROUP LIMB B351 TINEA 05-04-2016 BRAUDIS UNGUIUM E1151 TYPE 2 DM 05-04-2016 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 Y71035 PAIN IN 05-04-2016 [facility] RIGHT FOOT F49456 PAIN IN 05-04-2016 [facility] LEFT FOOT N78975 PAIN IN 05-04-2016 B[facility] RIGHT TOES I29550 PAIN IN 05-04-2016 [facility] LEFT TOES R600 LOCALIZED 05-04-2016 TRACYUDIJordan EDEMA I361 NONRHEUMATI 03-27-2016 [facility] TRICUSPID SERV [facility] INSUFFICIEN CY I517 CARDIOMEGAL 03-27-2016 [facility] SERV [facility] Q23598 PAIN IN 03-27-2016 [facility]G [facility] K78520 PAIN IN 03-26-2016 [facility] LEFT LOWER AMBULANCE LEG SERVICE R609 EDEMA 03-26-2016 [facility] UNSPECIFIED [facility]BULANCE SERVICE E31642 UNS 01-11-2016 JUANA SALEH ATHEROSCLER SENECA[place] ART EXTREM BILATERAL LEGS L851 ACQ 01-11-2016 JUANA SALEH KERATOSIS KERATODERMA PALMARIS ET PLANTARIS N920 EXCESS & 09-13-2015 [facility] FREQUENT PHYSICIANS MENSTRUATIO GROUP N W/REGULAR CYCLE N926 IRREGULAR 09-13-2015 [facility] MENSTRUATIO PHYSICIANS N GROUP UNSPECIFIED Z23 ENCOUNTER 04-04-2015 [facility] IMMUNIZATIO [facility] DEPT N DAVE 33220 DIAB W/O 03-17-2015 [facility] COMP TYPE PHYSICIANS II/UNS NOT LA STATED UNCNTRL 4019 UNSPECIFIED 03-17-2015 [facility] ESSENTIAL PHYSICIANS HYPERTENSIO LA N 5990 URINARY 03-17-2015 [facility] TRACT PHYSICIANS INFECTION LA SITE NOT SPECIFIED 1101 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 SALEH OSIS OF NAIL 90954 ATHEROSCLER 01-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 SALEH OSIS [place] ART EXTREMITIES UNSPEC 7011 ACQUIRED 01-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 SALEH KERATODERMA 7295 PAIN IN 01-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 SALEH SOFT TISSUES OF LIMB 89034 09-21-2014 [facility]ATED TRANSPORTAT ION SER 7823 EDEMA 04-27-2014 JUANA SALEH V5869 LONG-TERM 11-25-2013 [facility] (CURRENT) PHYSICIANS USE OF LA OTHER MEDICATIONS V0481 NEED 04-30-2013 [facility] VACCINATION &INOCULATIO N FLU 514 PULMONARY 07-31-2012 EXPRESS [place] [address] WHEEZING 07-31-2012 [facility] SE 7862 COUGH 07-31-2012 [place] [address] DIAB 07-21-2012 JUANA SALEH W/PERIPH CIRC D/O TYPE II/UNS NOT UNCNTRL 7048 OTHER 05-24-2012 [facility] SPECIFIED EMERGENCY DISEASE OF SERVICES HAIR&HAIR FOLLICLES 2809 UNSPECIFIED 12-19-2011 [facility] 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 25483 PAIN IN 12-19-2011 [employer]D JOINT, [facility] LOWER LEG 7906 OTHER 12-19-2011 LAB [facility] ABNORMAL AMERIC BLOOD HOLDING CHEMISTRY 89781 OTHER 07-26-2011 DERMATOLOGY SPECIFIED [facility]SC 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 05472 PAIN IN 05-28-2011 [facility] PELVIC REGION AND THIGH 6826 CELLULITIS 05-09-2011 J[facility] AND ABSCESS EMERGENCY OF LEG SERVICES EXCEPT FOOT 3829 UNSPECIFIED 04-18-2011 [facility] OTITIS EMERGENCY MEDIA SERVICES 4580 ORTHOSTATIC 04-18-2011 [facility] P 4589 UNSPECIFIED 04-18-2011 [facility] HYPOTENSION SERVICES 6820 CELLULITIS 04-18-2011 [facility] AND ABSCESS EMERGENCY OF FACE SERVICES 7088 OTHER 04-18-2011 [facility] URTICARIA [facility] P 7802 SYNCOPE AND 04-18-2011 [facility] COLLAPSE EMERGENCY SERVICES 29055 ABDOMINAL 04-18-2011 [facility] EPIGA[facility] V762 SCREENING 11-16-2010 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 5210 DENTAL 09-19-2010 THE IMPLANT CARIES & ORAL SURGERY C 5258 OTHER SPEC 09-19-2010 THE IMPLANT DISORDERS & ORAL TEETH&SUPPO SURGERY C RTING STRUCTURES 57212 OTHER 05-25-2010 [facility] OLOGYAS 14023 OTHER SPEC 05-25-2010 [facility] WITHOUT OLOGYAS MENTION HEMORRHAGE 12739 ESOPHAGEAL 05-24-2010 [facility] REFLUX GASTROENTER OLOGYAS 89183 LOSS OF 05-24-2010 [facility] WEIGHT GASTROENTER OLOGYAS 7871 HEARTBURN 05-24-2010 [facility] GASTROENTER OLOGYAS 89074 NONSPECIFIC 05-20-2010 [facility] ELECTROCARD MED CTR IOGRAM 3670 HYPERMETROP 03-15-2009 SHEWMAKER FERNANDEZ JESSICA COD 19987 DIARRHEA 01-14-2009 [facility] 19851 UNSPECIFIED 01-14-2009 [facility] Diagnostics, [employer]. 6929 CONTACT 09-07-2008 ARNOLD, DERMATITIS& VLAD W OTHER ECZEMA DUE UNSPEC CAUSE 4659 ACUTE URIS 07-01-2008 [facility] UNSPECIFIED [facility] 7881 DYSURIA 07-01-2008 [employer] Medications Na ND Rx Da Fi Fi Am Da Di Ph RX Ph St me C No te ll ll ou ys ag ar # ys at rm s nt no ma ic us Or [...] .0 00 D ti TA 15 7- 4- 00 14 CA ve DI 07 20 [...] -0 .0 00 D ti TA 15 9- 7- 00 14 CA ve DI 07 20 [...] .0 00 D ti TA 15 2- 2- 00 14 CA ve DI 07 20 20 18 RE NE 70 17 17 35 1 58 PH 10 AR MA MG CY TA BL ET LO 45 04 05 14 14 00 ME Ac RA 80 -2 -1 .0 00 D ti TA 20 6- 9- 00 14 CA ve DI 65 20 [...] PH AR TA MA BL CY ET RO 00 01 02 47 15 00 ME Ac BA 90 -3 -2 3. 00 D ti FE 40 1- 4- 00 13 CA ve N- 05 20 20 0 67 RE DM 31 17 17 94 6 76 PH SY AR RU MA P CY LO 00 02 02 30 30 00 [...] C CA PS UL E DO 00 12 12 0 10 10 [...] LL BL C ET LO 45 04 12 0 30 30 [...] LL MG C CA PS UL E DI 00 07 07 0 20 30 [...] 0 PH CH DI AR AR UM LANDNE D CY W 25 0 LL MG C CA PS UL E Q- 00 11 02 0 11 2 ME 88 AR Ac TU 60 -0 -0 80 D 35 NO ti SS 30 7- 7- .0 CA 66 LD ve IN 85 20 20 00 RE 2 59 11 13 RI DM 4 PH CH AR AR SY LANDEN D RU CY W P LL C Q- 00 11 01 0 11 2 ME 88 AR Ac TU 60 -0 -2 80 D 07 NO ti SS 30 7- 6- .0 CA 41 LD ve IN 85 20 20 00 RE 1 59 11 13 RI DM 4 PH CH AR AR SY LANDEN D RU CY W P LL C Q- 00 11 01 0 11 2 ME 87 AR Ac TU 60 -0 -2 80 D 91 NO ti SS 30 7- 1- .0 CA 15 LD ve IN 85 20 20 00 RE 4 59 11 13 RI DM 4 PH CH AR AR SY LANDEN Green RU CY W P LL C Q- [...] SO 0 PH CH DI AR AR JOYA SCHUSTER D CY W 25 0 LL MG [...] MG 1 PH CH AR AR TA LANDEN D BL CY W ET LL C DO 00 10 12 0 30 30 ME 86 AR Ac CU 53 -1 -1 0. D 98 NO ti SA 63 5- 2- 00 CA 32 LD ve TE 75 20 20 0 RE 9 71 12 12 RI SO 0 PH CH DI AR AR JOYA SCHUSTER D CY W 25 0 LL MG C CA PS UL E Q- 00 11 12 0 11 2 ME 86 AR Ac TU 60 -0 -1 80 D 99 NO ti SS 30 7- 2- .0 CA 09 LD ve IN 85 20 20 00 RE 7 59 11 12 RI DM 4 PH CH AR AR SY LANDEN D RU CY W P LL C Q- 00 11 12 0 11 2 ME 86 AR Ac TU 60 -0 -0 80 D 86 NO ti SS 30 7- 6- .0 CA 08 LD ve IN 20 20 00 RE 0 59 11 [...] CY W D LI QU C ID 00 11 03 0 [...] CY W D LI QU C ID 00 11 01 0 [...] CY W ET LL C AC 00 10 10 3 35 1 ME 60 AR Ac ID 90 -1 -1 5. D 26 NO ti 47 8- 8- 00 CA 89 LD ve GO 72 20 20 0 RE 2 NE 71 11 11 RI 4 PH CH AN AR AR TA MA D CI CY W D LI LL QU C ID 00 10 10 3 11 2 ME 60 AR Ac 12 -1 -1 8. D 26 NO ti 10 8- 8- 00 CA 90 LD ve 63 20 20 0 RE 5 80 11 11 RI 4 PH CH AR AR MA D CY W LL C LO 00 10 10 3 21 7 ME 60 AR Ac RA 59 -1 -1 .0 D 26 NO ti ZE 10 8- 8- 00 CA 92 LD ve PA 24 20 20 RE 2 M 01 11 11 RI 0. 0 PH CH 5 AR AR MG MA D CY W TA BL LL ET C MA 00 12 10 3 60 [...] LL QU C ID CL 00 07 08 3 14 7 [...] ME 57 AR Ac ON 18 -1 -2 .0 D 63 NO ti AZ [...] BL CY W ET LL C CL 00 07 07 3 14 7 ME 57 AR Ac ON 18 -1 -2 .0 D 63 NO ti AZ [...] LL QU C ID LO 00 05 06 [...] W TA BL LL ET C 00 04 04 3 11 2 ME 54 AR Ac 12 -1 -1 8. D 99 NO ti 10 8- 8- 00 CA 02 LD ve 63 20 20 0 RE 5 80 11 11 RI 4 PH CH AR AR MA D CY W LL C MA 00 12 04 3 60 8 ME 51 AR Ac PA 90 -0 -1 .0 D 07 NO ti P 41 9- 8- 00 CA 25 LD ve 50 98 20 20 RE 2 0 86 10 11 RI MG 1 PH CH AR AR TA MA D BL CY W ET LL C LO 00 04 04 3 [...] 7- 7- 00 CA 76 LD ve MO 37 20 20 RE 5 AM 30 [...] D 89 NO ti ZE 10 7- 9- 00 CA 55 LD ve PA 24 [...] D 89 NO ti ZE 10 7- 2- 00 CA 55 LD ve PA 24 20 20 RE 6 M 01 11 11 RI 0. 0 PH CH 5 AR AR MG MA D CY W TA BL LL ET C LO 00 01 01 3 12 6 ME 51 AR Ac RA 59 -0 -0 .0 D 89 NO ti ZE 10 7- 7 CA 55 LD ve PA 24 20 20 RE 6 M 01 11 11 RI 0. 0 PH CH 5 AR AR MG MA D CY W TA BL LL ET C SE 00 12 12 3 30 30 ME 50 AR Ac RO 31 -0 -3 .0 D 89 NO ti QU 00 3 CA 85 LD ve EL 28 20 20 RE 1 23 10 10 RI XR 9 PH CH AR AR 20 MA D 0 CY W MG LL TA C BL ET LE 00 12 12 3 30 30 ME 50 AR Ac XA 45 -3 -3 .0 D 90 NO ti MO 62 1- 1- 00 CA 13 LD ve O 01 20 20 RE 5 10 06 10 10 RI 3 PH CH MG AR AR MA D TA CY W BL ET LL C LO 00 12 12 3 14 7 ME 51 AR Ac RA 59 -1 -3 .0 D 33 NO ti ZE 10 8 CA 72 LD ve PA 24 20 20 RE 9 M 01 10 10 RI 0. 0 PH CH 5 AR AR MG MA D CY W TA BL LL ET C LO 00 12 12 3 14 7 ME 51 AR Ac RA 59 -1 -2 .0 D 33 NO ti ZE 10 8- 4- 00 CA 72 LD ve PA 24 20 20 RE 9 M 01 10 10 RI 0. 0 PH CH 5 AR AR MG MA D CY W TA BL LL ET C BE 68 12 12 3 30 5 ME 51 AR Ac NZ 08 -1 -1 .0 D 33 NO ti TR 40 8- 8- 00 CA 72 LD ve OP 38 20 20 RE 5 IN 80 10 10 RI E 1 PH CH ME AR AR S MA D 1 CY W MG LL TA C BL ET LO 00 12 12 3 14 7 ME 51 AR Ac RA 59 -1 -1 .0 D 33 NO ti ZE 10 8- 8- 00 CA 72 LD ve PA 24 20 20 RE 9 M 01 10 10 RI 0. 0 PH CH 5 AR AR MG MA D CY W TA BL LL ET C MA 00 12 12 3 60 5 ME 51 AR Ac PA 90 -0 -0 .0 D 07 NO ti P 41 9- 9- 00 CA 25 LD ve 50 98 [...] -0 -0 .0 D 75 NO ti MO 62 3- 3- 00 CA 51 LD [...] 8- 7- 00 ER 21 ER ve MO 34 20 20 0 AM 40 09 [...] CY TA 14 BL 39 ET 2 CI 55 03 07 01 30 30 KR 67 SHAHID Ac TA 11 -2 -3 .0 OG 89 YA ti LO 10 0- 0- 00 ER 35 G- ve MO 34 20 20 0 TH AM 40 09 09 PH OM 5 AR HB MA R CY LE 40 A 14 MG 39 2 TA BL ET DE 00 07 07 00 30 30 [...] A TA 39 I BL 2 ET SHAHID 00 03 07 01 30 [...] 0- 1- 00 ER 35 G- ve MO 34 20 20 0 TH AM 40 [...] W TA BL ET SHAHID 00 03 05 00 30 30 KR 67 AR Ac LO 37 -1 -2 .0 OG 89 NO ti PE 80 1- 1- 00 ER 35 LD ve RI 32 20 20 1 DO 70 09 09 PH RI L 1 AR CH 5 MA AR MG CY D W TA 14 BL 39 ET 2 SHAHID 00 03 04 01 30 30 CL 18 SHAHID Ac LO 37 -2 -2 .0 IN 99 YA ti PE 80 0- 3- 00 IC 86 G- ve RI 25 20 20 TH DO 70 09 09 PH OM L 1 AR 1 MA MG CY LE A TA BL ET CI 57 03 04 01 30 30 CL 18 SHAHID Ac TA 66 -2 -2 .0 IN 99 YA ti LO 40 0- 3- 00 IC 85 G- ve MO 50 20 20 TH AM 98 09 09 PH OM 8 AR HB MA R CY LE 40 A MG TA BL ET LO 00 04 04 00 30 5 CL 19 AR Ac RA 22 -1 -2 .0 IN 15 NO ti ZE 82 0- 3- 00 IC 31 LD ve PA 05 20 20 M 91 09 09 PH RI 1 0 AR CH MG MA AR CY D TA W BL ET TR 50 03 04 01 30 30 CL 18 AR Ac AZ 11 -1 -2 .0 IN 92 NO ti OD 10 1- 3- 00 IC 85 LD ve ON 43 20 20 E 30 09 09 PH RI 50 1 AR CH MA AR MG CY D W TA BL ET CL 00 03 04 00 45 10 CL 19 AR Ac OT 16 -2 -0 .0 IN 05 NO ti RI 80 4- 9- 00 IC 06 LD ve MA 25 20 20 ZO 84 09 09 PH RI LE 6 AR CH -B MA AR ET CY D AM W ET SHAHID SO NE CR M 60 03 04 00 24 8 CL 19 AR Ac 25 -2 -0 0. IN 01 NO ti 80 3- 9- 00 IC 27 LD ve 41 20 20 0 51 09 09 PH RI 6 AR CH MA AR CY D W 00 03 04 00 30 5 CL 19 AR Ac 18 -2 -0 .0 IN 01 NO ti 20 2- 9- 00 IC 26 LD ve 49 20 20 21 09 09 PH RI 0 AR CH MA AR CY D W IB 53 03 03 00 30 8 CL 18 AR Ac UP 74 -1 -2 .0 IN NO ti RO 60 1- 6- 00 IC 72 LD ve FE 46 20 20 N 50 09 09 PH RI 60 5 AR CH 0 MA AR MG CY D W TA BL ET CI 57 03 03 00 30 30 CL 18 SHAHID Ac TA 66 -2 -2 .0 IN 99 YA ti LO 40 0- 6- 00 IC 85 G- ve MO 50 20 20 TH AM 98 09 09 PH OM 8 AR HB MA R CY LE 40 A MG TA BL ET SHAHID 00 03 03 [...] Ac TA 20 -1 -2 0. IN NO ti CI 50 1- 6- 00 IC 89 LD ve D 21 20 20 0 50 04 09 09 PH RI 0 7 AR CH MG MA AR CY D CH W EW AB LE TA BL ET LO 00 03 03 00 30 8 CL 18 AR Ac RA 22 -1 -2 .0 IN 92 NO ti ZE 82 1- 6- 00 IC 77 LD ve PA 05 20 20 M 91 09 09 PH RI 1 0 AR CH MG MA AR CY D TA W BL ET VT 37 03 03 00 36 6 CL 18 AR Ac LK 20 -1 -2 0. IN 92 NO ti 50 1- 6- 00 IC 88 LD ve OF 83 20 20 0 34 09 09 PH RI MA 0 AR CH GN MA AR ES CY D IA W WSASERMAN SP EN SI ON BE 00 03 03 00 30 10 CL 18 AR Ac NZ 60 -1 -2 .0 IN 92 NO ti TR 32 1- 6- 00 IC 82 LD ve OP 43 20 20 IN 52 09 09 PH RI E 1 AR CH ME MA AR S CY D 2 W MG TA BL ET TR 50 03 03 00 30 30 CL 18 AR Ac AZ 11 -1 -2 .0 IN 92 NO ti OD 10 1- 6- 00 IC 85 LD ve ON 43 20 20 E 30 09 09 PH RI 50 1 AR CH MA AR MG CY D W TA BL ET 00 03 03 00 [...] M TA 14 BL 39 ET 2 Procedures Procedure DOS Code Location Performer Comment BASIC 82698 COMBINED COMBINED METABOLIC 7 PHYSICIAN PHYSICIAN PANEL S LAB S LAB CALCIUM TOTAL TRAVEL 1 08-[address] MED 7 PHYSICIAN PHYSICIAN NEC LAB S LAB S LAB SPEC; PRORATD TRIP CHRG COLLECTIO 03105 COMBINED COMBINED N VENOUS 7 PHYSICIAN PHYSICIAN BLOOD S LAB S LAB VENIPUNCT URE HOS BED E0303 MIC LOPEZ DUTY 7 HOME HOME W/WT CAP MEDICAL MEDICAL >350 EQUIPME EQUIPME PDS</=TO 600 PDS NONEMERG A0120 FEDERATED FEDERATED TRNSPRT: 7 MINI-BUS TRANSPORT TRANSPORT [facility]/OTH SYS NONEMERG A0120 FEDERATED FEDERATED TRNSPRT: 7 MINI-BUS TRANSPORT [facility]ORT [facility]OTH SYS NONEMERG A0120 FEDERATED FEDERATED TRNSPRT: 7 MINI-BUS TRANSPORT TRANSPORT [facility]/OT SYS BASIC 75761 COMBINED COMBINED METABOLIC 7 PHYSICIAN PHYSICIAN PANEL S LA S LA CALCIUM TOTAL TRAVEL [address] MED 7 PHYSICIAN PHYSICIAN NEC LAB S LA S LA SPEC; PRORATD TRIP CHRG COLLECTIO 84002 COMBINED COMBINED N VENOUS 7 PHYSICIAN PHYSICIAN BLOOD S LA S LA VENIPUNCT URE NONEMERG A0120 FEDERATED FEDERATED TRNSPRT: 7 MINI-BUS TRANSPORT TRANSPORT [facility]/OTH SYS BASIC 60475 COMBINED COMBINED METABOLIC 7 PHYSICIAN PHYSICIAN PANEL S LA S LA CALCIUM TOTAL TRAVEL [address] MED 7 PHYSICIAN PHYSICIAN NEC LAB S LA S LA SPEC; PRORATD TRIP CHRG COLLECTIO 01156 COMBINED COMBINED N VENOUS 7 PHYSICIAN PHYSICIAN BLOOD S LA S LA VENIPUNCT URE COLLECTIO 34776 COMBINED COMBINED N VENOUS 7 PHYSICIAN PHYSICIAN BLOOD S LA S LA VENIPUNCT URE TRAVEL [address] MED 7 PHYSICIAN PHYSICIAN NEC LAB S LA S LA SPEC; PRORATD TRIP CHRG BASIC 47024 COMBINED COMBINED METABOLIC 7 PHYSICIAN PHYSICIAN PANEL S LA S LA CALCIUM TOTAL HEMOGLOBI 22430 COMBINED COMBINED N 7 PHYSICIAN PHYSICIAN GLYCOSYLA [...] MTN ATION SER ATION SER AREA/OTH SYS BASIC 07054 COMBINED COMBINED METABOLIC 7 PHYSICIAN PHYSICIAN PANEL S LA S LA CALCIUM TOTAL TRAVEL [address] MED 7 PHYSICIAN PHYSICIAN NEC LAB S LA S LA SPEC; PRORATD TRIP CHRG COLLECTIO 26814 COMBINED COMBINED N VENOUS 7 PHYSICIAN PHYSICIAN BLOOD S LA S LA VENIPUNCT URE VOLUME 52142 COMBINED COMBINED MEASUREME 6 PHYSICIAN PHYSICIAN NT TIMED [place] [address] COMBINED COMBINED THYROID 6 PHYSICIAN PHYSICIAN STIMULATI S LA S LA NG HORMONE TSH BASIC 61606 COMBINED COMBINED METABOLIC 6 PHYSICIAN PHYSICIAN PANEL S LA S LA CALCIUM TOTAL HEMOGLOBI 12912 COMBINED COMBINED N 6 PHYSICIAN PHYSICIAN GLYCOSYLA S LA S LA JULISA A1C URNLS DIP 14780 COMBINED COMBINED 6 PHYSICIAN PHYSICIAN STICK/TAB S LA S LA LET REAGENT AUTO MICROSCOP Y LIPID 88596 COMBINED COMBINED PANEL 6 PHYSICIAN PHYSICIAN S LA S LA NONEMERG A0120 FEDERATED FEDERATED TRNSPRT: 6 MINI-BUS TRANSPORT TRANSPORT MTN ATION SER ATION SER AREA/OTH SYS NONEMERG A0120 FEDERATED FEDERATED TRNSPRT: 6 MINI-BUS TRANSPORT TRANSPORT MTN ATION SER ATION SER AREA/OTH SYS NONEMERG A0120 FEDERATED FEDERATED TRNSPRT: 6 MINI-BUS TRANSPORT TRANSPORT MTN ATION SER ATION SER AREA/OTH SYS DEBRIDEME 05752 BRAUDIS BRAUDIS NT NAIL 6 ANY METHOD 1-5 PARING/CU 72385 BRAGARCIAS BRAUDIS TTING 6 BENIGN HYPERKERA TOTIC LESION 2-4 TRIMMING 61666 BRAUDIS BRAUDIS NONDYSTRO 6 PHIC NAILS ANY NUMBER ECHO 82381 [facility] R-T 6 MEDICAL NOAM 2D SERV W/WOM-MOD FOUNDATIO E COMPL N SPEC&COLR D DUP-SCAN 87417 [facility] ROSELYN XTR VEINS 6 MEDICAL SHARA IMAGING UNILATERA ASS L/LIMITED STUDY GROUND A0425 [employer] MILEAGE 6 AMBULANCE AMBULANCE PER SERVICE SERVICE STATUTE MILE AMBULANCE A0429 [employer] SERVICE 6 AMBULANCE AMBULANCE BLS SERVICE SERVICE EMERGENCY TRANSPORT DEBRIDEME 50820 JUANA MOLINAUDIS NT NAIL 6 JAM JAM ANY METHOD 1-5 PARING/CU 85097 TRACYUDIS BRAUDIS TTING 6 JAM JAM BENIGN HYPERKERA TOTIC LESION >4 TRIMMING 35586 TRACYUDIS BRAUDIS NONDYSTRO 6 JAM JAM PHIC NAILS ANY NUMBER COLLECTIO 15048 COMBINED COMBINED N VENOUS 6 PHYSICIAN PHYSICIAN BLOOD S LA S LA VENIPUNCT URE TRAVEL [address] MED 6 PHYSICIAN PHYSICIAN NEC LAB S LA S LA SPEC; PRORATD TRIP CHR BASIC 10761 COMBINED COMBINED METABOLIC 6 PHYSICIAN PHYSICIAN PANEL S LA S LA CALCIUM TOTAL HEMOGLOBI 85970 COMBINED COMBINED N 6 PHYSICIAN PHYSICIAN GLYCOSYLA S LA S LA JULISA A1C TRAVEL [address] MED 6 PHYSICIAN PHYSICIAN NEC LAB S LA S LA SPEC; PRORATD TRIP CHRG COLLECTIO 70774 COMBINED COMBINED N VENOUS 6 PHYSICIAN PHYSICIAN BLOOD S LA S LA VENIPUNCT URE PARING/CU 67148 BRAUDIS BRAUDIS TTING 6 JAM JAM BENIGN HYPERKERA TOTIC LESION >4 DEBRIDEME 82077 TONYS BRAUDIS NT NAIL 6 JAM JAM ANY METHOD 1-5 TRIMMING 28645 BRAUDIS BRAUDIS NONDYSTRO 6 JAM JAM PHIC NAILS ANY NUMBER NONEMERG A0120 FEDERATED FEDERATED TRNSPRT: 6 MINI-BUS TRANSPORT TRANSPORT MTN ATION SER ATION SER AREA/OTH SYS FOR DIAB A5512 ELITE ELITE ONLY MX [facility] DNSITY SUPPLY [facility]PPL[facility] [employer] [facility] FORMD PRFAB EA DIAB ONLY A5500 ELITE ELITE FIT CSTM 6 MEDICAL MEDICAL PREP&SPL SUPPLY SUPPLY [facility] [employer] [facility] DNSITY INSRT TRAVEL [address] MED 6 PHYSICIAN PHYSICIAN NEC LAB S LA S LA SPEC; PRORATD TRIP CHRG HEMOGLOBI 29991 COMBINED COMBINED N 6 PHYSICIAN PHYSICIAN GLYCOSYLA S LA S LA JULISA A1C COLLECTIO 78508 COMBINED COMBINED N VENOUS 6 PHYSICIAN PHYSICIAN BLOOD S LA S LA VENIPUNCT URE COLLECTIO 17217 COMBINED COMBINED N VENOUS 5 PHYSICIAN PHYSICIAN BLOOD S LA S LA VENIPUNCT URE BASIC 68484 COMBINED COMBINED METABOLIC 5 PHYSICIAN PHYSICIAN PANEL [...] S LA SPEC; PRORATD TRIP CHRG HEMOGLOBI 33169 COMBINED COMBINED N 5 PHYSICIAN PHYSICIAN GLYCOSYLA S LA S LA JULISA A1C COLLECTIO 43041 COMBINED COMBINED N VENOUS 5 PHYSICIAN PHYSICIAN BLOOD S LA S LA VENIPUNCT URE URNLS DIP 41754 COMBINED COMBINED 5 PHYSICIAN PHYSICIAN STICK/TAB S LA S LA LET REAGENT AUTO MICROSCOP Y VOLUME 52098 COMBINED COMBINED MEASUREME 5 PHYSICIAN PHYSICIAN NT TIMED S LA S LA COLLECTIO N EACH PARING/CU 70852 JUANA ARIAS TTING 5 JAM JAM BENIGN HYPERKERA TOTIC LESION >4 DEBRIDEME 86918 JUANA ARIAS NT NAIL 5 JAM JAM ANY METHOD 1-5 TRIMMING 07-30-201 26570 BRAUDIS BRAUDIS NONDYSTRO 5 JAM JAM PHIC NAILS ANY NUMBER COLLECTIO 17631 COMBINED COMBINED N VENOUS 5 PHYSICIAN PHYSICIAN BLOOD S LA S LA VENIPUNCT URE TRAVEL [address] MED 5 PHYSICIAN PHYSICIAN NEC LAB S LA S LA SPEC; PRORATD TRIP CHRG HEMOGLOBI 94643 COMBINED COMBINED N 5 PHYSICIAN PHYSICIAN GLYCOSYLA S LA S LA JULISA A1C HEMOGLOBI 22855 COMBINED COMBINED N 5 PHYSICIAN PHYSICIAN GLYCOSYLA S LA S LA JULISA A1C TRAVEL [address] MED 5 PHYSICIAN PHYSICIAN NEC LAB S LA S LA SPEC; PRORATD TRIP CHRG COLLECTIO 78009 COMBINED COMBINED N VENOUS 5 PHYSICIAN PHYSICIAN BLOOD S LA S LA VENIPUNCT URE NONEMERG A0120 FEDERATED FEDERATED TRNSPRT: 5 [facility] TRANSPORT [facility]/OTH SYS DIAB ONLY A5500 ELITE ELITE FIT CSTM 5 MEDICAL MEDICAL PREP&SPL SUPPLY SUPPLY [facility] [employer] [facility] DNSITY INSRT FOR DIAB A5512 ELITE ELITE ONLY MX 5 MEDICAL MEDICAL DNSITY SUPPLY [facility] [employer] [facility] FORMD PRFAB EA TRAVEL [address] MED 5 PHYSICIAN PHYSICIAN NEC LAB S LA S LA SPEC; PRORATD TRIP CHRG BASIC 93628 COMBINED COMBINED METABOLIC 5 PHYSICIAN PHYSICIAN PANEL S LA S LA CALCIUM TOTAL COLLECTIO 92515 COMBINED COMBINED N VENOUS 5 PHYSICIAN PHYSICIAN BLOOD S LA S LA VENIPUNCT URE COLLECTIO 11778 COMBINED COMBINED N VENOUS 5 PHYSICIAN PHYSICIAN BLOOD S LA S LA VENIPUNCT URE HEMOGLOBI 88993 COMBINED COMBINED N 5 PHYSICIAN PHYSICIAN GLYCOSYLA S LA S LA JULISA A1C TRAVEL [address] MED 5 PHYSICIAN PHYSICIAN NEC LAB S LA S LA SPEC; PRORATD TRIP CHRG FOR DIAB A5512 ELITE ELITE ONLY MX 4 MEDICAL MEDICAL DNSITY SUPPLY [employer] FORMD PRFAB EA DIAB ONLY A5500 ELITE ELITE FIT CSTM 4 MEDICAL MEDICAL PREP&SPL SUPPLY SUPPLY [employer] DNSITY INSRT DEBRIDEME 13523 JUANA ARIAS NT NAIL 4 JAM JAM ANY METHOD 1-5 PARING/CU 18651 JUANA JIMENEZS TTING 4 JAM JAM BENIGN HYPERKERA TOTIC LESION 2-4 TRIMMING 35011 JUANA ARIAS NONDYSTRO 4 JAM JAM PHIC NAILS ANY NUMBER COLLECTIO 83898 COMBINED COMBINED N VENOUS 4 PHYSICIAN PHYSICIAN BLOOD S LA S LA VENIPUNCT URE TRAVEL [address] MED 4 PHYSICIAN PHYSICIAN NEC LAB S LA S LA SPEC; PRORATD TRIP CHRG HEMOGLOBI 73655 COMBINED COMBINED N 4 PHYSICIAN PHYSICIAN GLYCOSYLA S LA S LA JULISA A1C HEMOGLOBI 30439 COMBINED COMBINED N 4 PHYSICIAN PHYSICIAN GLYCOSYLA S LA S LA JULISA A1C TRAVEL [address] MED 4 PHYSICIAN PHYSICIAN NEC LAB S LA S LA SPEC; PRORATD TRIP CHRG COLLECTIO 20925 COMBINED COMBINED N VENOUS 4 PHYSICIAN PHYSICIAN BLOOD S LA S LA VENIPUNCT URE COLLECTIO 78328 COMBINED COMBINED N VENOUS 4 PHYSICIAN PHYSICIAN BLOOD S LA S LA VENIPUNCT URE TRAVEL [address] MED 4 PHYSICIAN PHYSICIAN NEC LAB S LA S LA SPEC; PRORATD TRIP CHRG BASIC 09765 COMBINED COMBINED METABOLIC 4 PHYSICIAN PHYSICIAN PANEL S LA S LA CALCIUM TOTAL HEMOGLOBI 60798 COMBINED COMBINED N 4 PHYSICIAN PHYSICIAN GLYCOSYLA S LA S LA JULISA A1C TRAVEL [address] MED 4 PHYSICIAN PHYSICIAN NEC LAB S LA S LA SPEC; PRORATD TRIP CHRG COLLECTIO 32048 COMBINED COMBINED N VENOUS 4 PHYSICIAN PHYSICIAN BLOOD S LA S LA VENIPUNCT URE PARING/CU 52575 JUANA JIMENEZJordan TTING 4 JAM JAM BENIGN HYPERKERA TOTIC LESION >4 DEBRIDEME 84193 JUANA ARIAS NT NAIL 4 JAM JAM ANY METHOD 1-5 TRIMMING 73852 JUANA JIMENEZS NONDYSTRO 4 JAM JAM PHIC NAILS ANY NUMBER TRAVEL [address] MED 4 PHYSICIAN PHYSICIAN NEC LAB S LA S LA SPEC; PRORATD TRIP CHRG COLLECTIO 72396 COMBINED COMBINED N VENOUS 4 PHYSICIAN PHYSICIAN BLOOD S LA S LA VENIPUNCT URE HEMOGLOBI 69475 COMBINED COMBINED N 4 PHYSICIAN PHYSICIAN GLYCOSYLA S LA S LA JULISA A1C NONEMERG A0120 FEDERATED FEDERATED TRNSPRT: 4 MINI-BUS TRANSPORT TRANSPORT [facility]/OT SYS BASIC 41490 COMBINED COMBINED METABOLIC 3 PHYSICIAN PHYSICIAN PANEL S LA S LA CALCIUM TOTAL COLLECTIO 31724 COMBINED COMBINED N VENOUS 3 PHYSICIAN PHYSICIAN BLOOD S LA S LA VENIPUNCT URE NONEMERG A0120 FEDERATED FEDERATED TRNSPRT: 3 MINI-BUS TRANSPORT TRANSPORT [facility] SYS INFLUENZA Q2038 YUDY JIMENES VACC 3 [facility] VIRUS 3 YRS & > IM FLUZONE ADMINISTR G0008 YUDY JIMENES ATION OF 3 [facility] INFLUENZA [facility] VIRUS VACCINE DEBRIDEME 61663 JUANA JIMENEZS NT NAIL 3 JAM JAM ANY METHOD 1-5 PARING/CU 60831 BRAUDIS BRAUDIS TTING 3 JAM JAM BENIGN HYPERKERA TOTIC LESION 2-4 TRIMMING 90203 TRACYUDIS TRACYUDIS NONDYSTRO 3 JAM JAM PHIC NAILS ANY NUMBER COLLECTIO 68127 COMBINED COMBINED N VENOUS 3 PHYSICIAN PHYSICIAN BLOOD S LA S LA VENIPUNCT URE HEMOGLOBI 60004 COMBINED COMBINED N 3 PHYSICIAN PHYSICIAN GLYCOSYLA S LA S LA JULISA A1C NONEMERG A0120 LKLP CAC LKLP CAC TRNSPRT: 3 INC INC MINI-BUS REGION 11 REGION 11 [facility]/OT SYS BASIC 63656 COMBINED COMBINED METABOLIC 3 PHYSICIAN PHYSICIAN PANEL S LA S LA CALCIUM TOTAL HEMOGLOBI 87288 COMBINED COMBINED N 3 PHYSICIAN PHYSICIAN GLYCOSYLA S LA S LA JULISA A1C TRAVEL [address] MED 3 PHYSICIAN PHYSICIAN NEC LAB S LA S LA SPEC; PRORATD TRIP CHRG COLLECTIO 71445 COMBINED COMBINED N VENOUS 3 PHYSICIAN PHYSICIAN BLOOD S LA S LA VENIPUNCT URE RADIOLOGI 44534 EXPRESS EXPRESS C EXAM 3 MOBILE MOBILE CHEST 2 DIAGNOSTI DIAGNOSTI VIEWS C SE C SE FRONTAL&L ATERAL TRANS R0070 EXPRESS EXPRESS PRTBL 3 MOBILE MOBILE X-RAY DIAGNOSTI DIAGNOSTI EQP&PERS C SE C SE LINDSEY/NRS LINDSEY-TRIP 1 PT SET-UP Q0092 EXPRESS EXPRESS PORTABLE 3 MOBILE MOBILE X-RAY DIAGNOSTI DIAGNOSTI EQUIPMENT C SE C SE HEMOGLOBI 32504 COMBINED COMBINED N 3 PHYSICIAN PHYSICIAN GLYCOSYLA S LA S LA JULISA A1C COLLECTIO 84119 COMBINED COMBINED N VENOUS 3 PHYSICIAN PHYSICIAN BLOOD S LA S LA VENIPUNCT URE TRAVEL [address] MED 3 PHYSICIAN PHYSICIAN NEC LAB S LA S LA SPEC; PRORATD TRIP CHRG DEBRIDEME 49148 BRAUDIS BRAUDIS NT NAIL 3 JAM JAM ANY METHOD 1-5 TRIMMING 76827 BRAUDIS BRAUDIS NONDYSTRO 3 JAM JAM PHIC NAILS ANY NUMBER COLLECTIO 14899 COMBINED COMBINED N VENOUS 2 PHYSICIAN PHYSICIAN BLOOD S LA S LA VENIPUNCT URE BASIC 95483 COMBINED COMBINED METABOLIC 2 PHYSICIAN PHYSICIAN PANEL S LA S LA CALCIUM TOTAL TRAVEL [address] MED 2 PHYSICIAN PHYSICIAN NEC LAB S LA S LA SPEC; PRORATD TRIP CHRG AMBULANCE A0429 [facility] SERVICE 2 AMBULANCE AMBULANCE BLS SERVICE SERVICE EMERGENCY TRANSPORT GROUND A0425 [facility] MILEAGE 2 AMBULANCE AMBULANCE PER SERVICE SERVICE STATUTE MILE NONEMERG A0120 LKLP LKLP TRNSPRT: 2 COMMUNITY COMMUNITY MINI-BUS ACTION ACTION MTN AREA/OTH SYS HEMOGLOBI 22743 COMBINED COMBINED N 2 PHYSICIAN PHYSICIAN GLYCOSYLA S LA S LA JULISA A1C TRAVEL [address] MED 2 PHYSICIAN PHYSICIAN NEC LAB S LA S LA SPEC; PRORATD TRIP CHRG COLLECTIO 93053 COMBINED COMBINED N VENOUS 2 PHYSICIAN PHYSICIAN BLOOD S LA S LA VENIPUNCT URE DEBRIDEME 85817 JUANA ARIAS NT NAIL 2 JAM JAM ANY METHOD 1-5 TRIMMING 15665 JUANA ARIAS NONDYSTRO 2 JAM JAM PHIC NAILS ANY NUMBER PARING/CU 71270 JUANA JIMENEZS TTING 2 JAM JAM BENIGN HYPERKERA TOTIC LESION 1 ADMINISTR G0008 YUDY VICTORON ATION OF 2 [facility] INFLUENZA [facility] VIRUS VACCINE INFLUENZA Q2038 YUDY JIMENES VACC 2 [facility] SPLIT [facility] VIRUS 3 YRS & > IM FLUZONE TRIMMING 62625 JUANA ARIAS NONDYSTRO 2 JAM JAM PHIC NAILS ANY NUMBER DEBRIDEME 93247 JUANA ARIAS NT NAIL 2 JAM JAM ANY METHOD 1-5 COLLECTIO 57324 COMBINED COMBINED N VENOUS 2 PHYSICIAN PHYSICIAN BLOOD S LA S LA VENIPUNCT URE TRAVEL [address] MED 2 PHYSICIAN PHYSICIAN NEC LAB S LA S LA SPEC; PRORATD TRIP CHRG HEMOGLOBI 63040 COMBINED COMBINED N 2 PHYSICIAN PHYSICIAN GLYCOSYLA S LA S LA JULISA A1C PARING/CU 60004 JUANA ARIAS TTING 2 JAM JAM BENIGN HYPERKERA TOTIC LESION 1 TRANS R0070 [facility] PRTBL 2 [facility] [employer] X-RAY EQP&PERS LINDSEY/NRS LINDSEY-TRIP 1 [place] [address] LAB LUCY LAB LUCY IRON 2 [employer] SET-UP Q0092 [facility] PORTABLE 2 [facility] [employer] X-RAY EQUIPMENT RADIOLOGI 14765 [facility] C 2 [facility] EXAMINATI ON KNEE 3 VIEWS COLLECTIO 64875 COMBINED COMBINED N VENOUS 2 PHYSICIAN PHYSICIAN BLOOD S LA S LA VENIPUNCT URE TRAVEL [address] MED 2 PHYSICIAN PHYSICIAN NEC LAB S LA S LA SPEC; PRORATD TRIP CHRG DEBRIDEME 36817 JUANA ARIAS NT NAIL 2 JAM JAM ANY METHOD 1-5 TRIMMING 14802 BRAUDIS BRAUDIS NONDYSTRO 2 JAM JAM PHIC NAILS ANY NUMBER BX SKIN 35099 DERMATOLO FINK-WEB SUBCUTANE 2 GY B RAYMOND OUS&/MUCO CONSULTAN US TS PSC MEMBR[place] 1 [place] L[place] [address] DERMATOLO BRITTON II SURG 2 GY TERRY PATHOLOGY CONSULTAN TS PSC GROSS&SEJAL ROSCOPIC EXAM DESTRUCTI 42556 DERMATOLO FINK-WEB ON BENIGN 2 GY B RAYMOND LESIONS CONSULTAN UP TO 14 TS PSC NONEMERG A0120 LKLP LKLP TRNSPRT: 2 COMMUNITY COMMUNITY MINI-BUS ACTION ACTION MTN AREA/OTH SYS HEMOGLOBI 43566 COMBINED COMBINED N 2 PHYSICIAN PHYSICIAN GLYCOSYLA S LA S LA JULISA A1C TRAVEL [address] MED 2 PHYSICIAN PHYSICIAN NEC LAB S LA S LA SPEC; PRORATD TRIP CHRG COLLECTIO 22661 COMBINED COMBINED N VENOUS 2 PHYSICIAN PHYSICIAN BLOOD S LA S LA VENIPUNCT URE RADEX HIP 27173 [facility] 1 [employer] UNILATERA L COMPLETE MINIMUM 2 VIEWS TRANS R0070 [employer] PRTBL 1 [employer] X-RAY EQP&PERS LINDSEY/NRS LINDSEY-TRIP 1 PT SET-UP Q0092 [facility] PORTABLE 1 [employer] X-RAY EQUIPMENT GROUND A0425 [facility] 1 AMBULANCE AMBULANCE PER SERVICE SERVICE STATUTE MILE AMBULANCE A0429 [facility] SERVICE 1 AMBULANCE AMBULANCE BLS SERVICE SERVICE EMERGENCY TRANSPORT CUL BACT 16425 YUDY JIMENES XCPT 1 [facility] URINE INC INC BLOOD/STO OL AEROBIC ISOL CUL BACT 22190 YUDY JIMENES AEROBIC 1 [facility] ADDL INC INC METHS DEFINITIV E EA ISOL SUSCEPTIB 50849 YUDY JIMENES LTY STDY 1 [facility] ANTIMICRB INC INC IAL [place] [address] YUDY JIMENES INFUSION 1 [facility] HYDRATION INC INC EACH ADDITIONA L HOUR ECG 91507 YUDY JIMENES ROUTINE 1 [facility] ECG INC INC W/LEAST 12 LDS TRCG ONLY W/O I&[place] [address] YUDY JIMENES INFUSION 1 [facility] THERAPY/P INC INC ROPHYLAXI S /DX 1ST TO 1 HR ECG 34229 YUDY EDMONDS ROUTINE 1 [facility] W/LEAST P 12 LDS I&R ONLY CREATINE 10696 YUDY YUDY KINASE 1 [facility] [place] [address] YUDY JIMENES LIPASE 1 [facility] INC INC COMPREHEN 39088 YUDY JIMENES SIVE 1 [facility] METABOLIC INC INC PANEL CREATINE 87365 YUDY JIMENES KINASE MB 1 [facility] FRACTION INC INC ONLY BLOOD 84365 YUDY YUDY COUNT 1 [facility] COMPLETE INC INC AUTO&[place] [address] YUDY YUDY TROPONIN 1 [facility] QUANTITAT INC INC KAILASH BLOOD 14727 YUDY YUDY OCCULT 1 [facility] PEROXIDAS INC INC E ACTV QUAL FECES 1-3 SPEC BLOOD 78239 COMBINED COMBINED COUNT 1 PHYSICIAN PHYSICIAN COMPLETE S LA S LA AUTO&AUTO DIFRNTL WBC LIPID 58380 COMBINED COMBINED PANEL 1 PHYSICIAN PHYSICIAN S LA S LA COMPREHEN 00947 COMBINED COMBINED SIVE 1 PHYSICIAN PHYSICIAN METABOLIC S LA S LA PANEL TRAVEL [address] MED 1 PHYSICIAN PHYSICIAN NEC LAB S LA S LA SPEC; PRORATD TRIP CHRG COLLECTIO 96848 COMBINED COMBINED N VENOUS 1 PHYSICIAN PHYSICIAN BLOOD S LA S LA VENIPUNCT URE ADMINISTR G0008 YUDY JIMENES ATION OF 1 [facility] INFLUENZA CENTER CENTER VIRUS VACCINE INFLUENZA Q2038 YUDY JIMENES VACC 1 [facility] SPLIT CENTER CENTER VIRUS 3 YRS & > IM FLUZONE NONEMERGE A0100 [facility] 1 COMMUNITY TRANSPORT ACTION ATION; TAXI SCR G0145 PATHOLOGY PATHOLOGY CYTOPATH 1 & & CERV/VAG CYTOLOGY CYTOLOGY SCR LAB LAB AUTO&MNL RSCR PHYS TRAVEL [address] MED 1 PHYSICIAN PHYSICIAN NEC LAB S LA S LA SPEC; PRORATD TRIP CHRG COLLECTIO 31611 COMBINED COMBINED N VENOUS 1 PHYSICIAN PHYSICIAN BLOOD S LA S LA VENIPUNCT URE GLUCOSE 09163 COMBINED COMBINED QUANTITAT 1 PHYSICIAN PHYSICIAN KAILASH BLOOD S LA S LA XCPT REAGENT STRIP HEMOGLOBI 89396 COMBINED COMBINED N 1 PHYSICIAN PHYSICIAN GLYCOSYLA S LA S LA JULISA A1C NONEMERGE A0100 [facility] 1 COMMUNITY TRANSPORT ACTION ATION; TAXI NONEMERGE A0100 [facility] 1 COMMUNITY TRANSPORT ACTION ATION; TAXI DEEP D9220 THE SHE SEDATION/ 1 IMPLANT & III LANA GENERAL ORAL ANESTHESI SURGERY C A-1ST 30 MINUTES ALVEOLOPL 94951 THE JESSA NOWAK EACH 1 IMPLANT & III LANA QUADRANT ORAL SPECIFY SURGERY C NONEMERGE A0100 [facility] 1 COMMUNITY TRANSPORT ACTION ATION; TAXI ORTHOPANT 41677 THE SHE OGRAM 1 IMPLANT & III LANA ORAL SURGERY C NONEMERGE A0100 [facility] 1 COMMUNITY TRANSPORT ACTION ATION; TAXI EGD 06738 [facility] TRANSORAL 0 ROSS BIOPSY GASTROENT SINGLE/MU EROLOGYAS LTIPLE INITIAL 53622 [facility] INPATIENT 0 ROSS CONSULT GASTROENT NEW/ESTAB EROLOGYAS PT [address] A[facility]UT[facility] ROUTINE 0 ALBERT THE ECG MED CTR W/LEAST 12 LDS I&R ONLY DETERMINA 41739 SHEWMAVICENTE SUBLER, TION 9 JESSICA FORRESTER REFRACTIV E STATE OPHTH 12174 SHEWMAKER SUBLER, 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 MICROSCOP Y Encounters Encounter Start End Date Code Location Performer Type Date OFFICE 10208 [facility] OUTPATIEN 7 7 PHYSICIAN T VISIT S GROUP 15 MINUTES OFFICE 76785 [facility] OUTPATIEN 7 7 PHYSICIAN T VISIT S GROUP 10 MINUTES OFFICE 33033 [facility] 7 7 Y OF T 30 [place] [facility] OFF[facility] 61287 [facility] OUTPATIEN 6 6 PHYSICIAN T VISIT S GROUP 10 MINUTES OFFICE 34351 [facility] J[facility] TOD OUTPATIEN 6 6 PHYSICIAN T VISIT S GROUP 10 MINUTES OFFICE 14324 [facility] J[facility] TOD OUTPATIEN 6 6 PHYSICIAN T NEW 20 S GROUP MINUTES OFFICE 76844 [facility] OUTPATIEN 6 6 PHYSICIAN QUIRINO T VISIT S GROUP 15 MINUTES EMERGENCY 93268 [facility]Y 2 2 [facility] DEPARTMEN INC T VISIT LIMITED/M [facility] YUDY - 2 2 [facility] OUTPATIEN INC T EMERGENCY 72002 JAMIL JONES 2 2 EMERGENCY DEPARTMEN SERVICES T VISIT HIGH/URGE NT SEVERITY OFFICE 76161 DERMATOLO FINK-WEB OUTPATIEN 2 2 GY B RAYMOND T CONSULTAN MINUTES [facility] 22958 JAMIL MAX 1 1 EMERGENCY SEJAL DEPARTMEN SERVICES T VISIT HIGH/URGE NT SEVERITY HOSPITAL YUDY - 1 1 [facility] OUTPATIEN INC T EMERGENCY 46753 JAMIL DELGADO DEPT 1 1 EMERGENCY III DEVON VISIT SERVICES HIGH SEVERITY& THREAT FUNCJ EMERGENCY 44772 YUDY 1 1 [facility] DEPARTMEN INC T VISIT HIGH/URGE NT SEVERITY HOSPITAL YUDY - 1 1 [facility] OUTPATIEN INC T OFFICE 83088 THE ZOYA NOWAK 1 1 IMPLANT & III LANA T NEW 20 ORAL MINUTES SURGERY C OFFICE 52137 [facility] 9 9 POINT [place]ina, T VISIT [facility] 15 CARE, MINUTES INC. OFFICE 01244 [facility] 9 9 PO[address] CARO Amin VISIT FAMILY 15 CARE, MINUTES INC.
--- OUTSIDE RECORDS SUMMARY | 2017-04-07 15:52 | External Medical Summary Rpt | CCD ---
Author Author , JET Organization JET Address Unknown Phone [email or web address] Care Team Providers Care Collaborating Supervising Physician Name Role Phone VLAD DICKSON, Unavailable Unavailable VLAD DICKSON MALLY, BESSON Unavailable Unavailable MALLY BRAUDIS, BRAUDIS Unavailable Unavailable BRAUDIS, BRAUDIS Unavailable Unavailable BRAUDIS JAM, BRAUDIS Unavailable Unavailable JAM BRAUDIS JAM, BRAUDIS Unavailable Unavailable JAM [facility] Unavailable Unavailable SERVICE, [facility] Unavailable Unavailable SERVICE, [facility] [place] [facility], [facility] Unavailable Unavailable DAVIS QUIRINO, DAVIS [...] [facility] Unavailable Unavailable LLC, [facility] Unavailable Unavailable LLC, [facility] Unavailable Unavailable DIAGNOSTIC SE, [facility] Unavailable Unavailable DIAGNOSTIC SE, [facility] Unavailable Unavailable TRANSPORTATION SER, [facility] FLORES, FLORES Unavailable Unavailable MANSOOR SEJAL, MANSOOR Unavailable Unavailable SEJAL HARRIET, ALE Unavailable Unavailable I, HARRIET, ALE I [facility], Unavailable Unavailable [facility] Unavailable Unavailable [place], [facility] Unavailable Unavailable [place], [facility] Unavailable Unavailable INC, [facility] Unavailable Unavailable HOSPITAL P, [facility], Unavailable Unavailable [facility] Unavailable Unavailable [facility], [facility], [facility] Unavailable Unavailable [facility] Unavailable Unavailable [id number], [facility] [id number] [facility], [facility] Unavailable Unavailable HOLD[facility], [facility] YARI GREENBERG Unavailable Unavailable [facility] Unavailable Unavailable 11, [facility] 11 [facility] Unavailable Unavailable ACTION, [facility] Unavailable Unavailable SERVICES, [facility] SANDRA LUCIEN, SANDRA Unavailable Unavailable [...] C, THE IMPLANT & ORAL SURGERY C [facility] Unavailable Unavailable GASTROENTEROLOGYAS, [facility] Un[facility] [place] [facility] CARO LUCIO, Unavailable Unavailable CARO LUCIO [facility] Unavailable Unavailable DEPT DAVE, [facility] DANNY III DEVON, Unavailable Unavailable DANNY III REECE KULKARNI Unavailable Unavailable Purpose Continuity of Care Document - 06-24-2008 through 2016 Problems Code Diagnosis DOS Provider Status I10 ESSENTIAL 01-31-2017 [facility] HYPERTENSIO LAB N 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 N UNS CERV REGION R69 ILLNESS 01-16-2017 FED[facility]ATED UNSPECIFIED TRANSPORTAT ION SER H6091 UNSPECIFIED 11-14-2016 [facility] OT[facility]IS PHYS[facility]IANS EXTERNA GROUP RIGHT EAR H6533 CHRONIC 11-14-2016 [facility] MUCOID PHYSICIANS OTITIS GROUP MEDIA BILATERAL R7301 IMPAIRED 10-04-2016 [facility] [place]ING [facility]ANS GLUCOSE [place] S78817 UNS ACUTE 09-27-2016 [facility] NONINFECTIV PHYSICIANS E OTITIS GROUP EXTERNA UNS EAR H6691 OTITIS 09-27-2016 [facility] MEDIA PHYSICIANS UNSPECIFIED GROUP RIGHT EAR E119 TYPE 2 09-18-2016 [facility] WITHOUT COMPLICATIO NS R7303 PREDIABETES 07-26-2016 [facility] E039 HYPOTHYROID 06-21-2016 [facility] ISM PHYSICIANS UNSPECIFIED LA E785 HYPERLIPIDE 06-21-2016 [facility] BREN PHYSICIANS UNSPECIFIED LA R300 DYSURIA 06-21-2016 [facility] PHYSICIANS LA [id number] CUTANEOUS 06-06-2016 [facility] ABSCESS OF PHYSICIANS LEFT LOWER GROUP LIMB B351 TINEA 05-04-2016 B[facility]IS UNGUIUM E1151 TYPE 2 DM 05-04-2016 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 Q66094 PAIN IN 05-04-2016 [facility] RIGHT FOOT T96671 PAIN IN 05-04-2016 [facility] LEFT FOOT Z52899 PAIN IN 05-04-2016 [facility] RIGHT TOES N67511 PAIN IN 05-04-2016 [facility] LEFT TOES R600 LOCALIZED 05-04-2016 TRACYUDIJordan EDEMA I361 NONRHEUMATI 03-27-2016 [facility] TRICUSPID SERV [facility] INSUFFICIEN CY I517 CARDIOMEGAL 03-27-2016 [facility] Q28715 PAIN IN 03-27-2016 [place] [facility]G [facility] T93124 PAIN IN 03-26-2016 [facility] LEFT LOWER AMBULANCE LEG SERVICE R609 EDEMA 03-26-2016 [facility] UNSPECIFIED [facility]BULANCE SERVICE S67641 UNS 01-11-2016 JUANA SALEH ATHEROSCLER [place] ART EXTREM BILATERAL LEGS L851 ACQ 01-11-2016 JUANA SALEH KERATOSIS KERATODERMA PALMARIS ET PLANTARIS N920 EXCESS & 09-13-2015 [facility] FREQUENT PHYSICIANS MENSTRUATIO GROUP N W/REGULAR CYCLE N926 IRREGULAR 09-13-2015 [facility] MENSTRUATIO PHYSICIANS N GROUP UNSPECIFIED Z23 ENCOUNTER 04-04-2015 [facility] IMMUNIZ[facility]IO [facility] DEPT N DAVE 52443 DIAB W/O 03-17-2015 [facility] COMP TYPE PHYSICIANS II/UNS NOT LA STATED UNCNTRL 4019 UNSPECIFIED 03-17-2015 [facility] ESSENTIAL PHYSICIANS HYPERTENSIO LA N 5990 URINARY 03-17-2015 [facility] TRACT PHYSICIANS INFECTION LA SITE NOT SPECIFIED 1101 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 SALEH OSIS OF NAIL 03376 ATHEROSCLER 01-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 SALEH OSIS [place] ART EXTREMITIES UNSPEC 7011 ACQUIRED 01-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 SALEH KERATODERMA 7295 PAIN IN 01-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 SALEH SOFT TISSUES OF LIMB 84194 09-21-2014 [facility] TRANSPORTAT ION SER 7823 EDEMA 04-27-2014 JUANA SALEH V5869 LONG-TERM 11-25-2013 COMBINED (CURRENT) PHYSICIANS USE OF LA OTHER MEDICATIONS V0481 NEED 04-30-2013 [facility] VACCINATION &INOCULATIO N FLU 514 PULMONARY 07-31-2012 [facility] [place] [address] WHEEZING 07-31-2012 [facility] DI[facility]NOST[facility] SE 7862 COUGH 07-31-2012 [place] [address] DIAB 07-21-2012 JUANA SALEH W/PERIPH CIRC D/O TYPE II/UNS NOT UNCNTRL 7048 OTHER 05-24-2012 [facility] SPECIFIED EMERGENCY DISEASE OF SERVICES HAIR&HAIR FOLLICLES 2809 UNSPECIFIED 12-19-2011 [facility] 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 91975 PAIN IN 12-19-2011 [facility], [facility] LOWER LEG 7906 OTHER 12-19-2011 [facility] ABNORMAL AMERIC BLOOD HOLDING CHEMISTRY 95722 OTHER 07-26-2011 DERMATOLOGY SPECIFIED [facility] PSC 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 57343 PAIN IN 05-28-2011 [facility] PELVIC REGION AND THIGH 6826 CELLULITIS 05-09-2011 JAMIL AND ABSCESS EMERGENCY OF LEG SERVICES EXCEPT FOOT 3829 UNSPECIFIED 04-18-2011 [facility] OTITIS [facility]ERGENCY MEDIA SERVICES 4580 ORTHOSTATIC 04-18-2011 [facility] P 4589 UNSPECIFIED 04-18-2011 [facility] HYPOTENSION SERVICES 6820 CELLULITIS 04-18-2011 JAMIL AND ABSCESS EMERGENCY OF FACE SERVICES 7088 OTHER 04-18-2011 [facility] URT[facility] P 7802 SYNCOPE AND 04-18-2011 [facility] COLLAPSE [facility]GENCY SERVICES 60679 ABDOMINAL 04-18-2011 [facility] EPIGASTRIC INC V762 SCREENING 11-16-2010 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 5210 DENTAL 09-19-2010 THE IMPLANT CARIES & ORAL SURGERY C 5258 OTHER SPEC 09-19-2010 THE IMPLANT DISORDERS & ORAL TEETH&SUPPO SURGERY C RTING STRUCTURES 30876 OTHER 05-25-2010 [facility] OLOGYAS 85458 OTHER SPEC 05-25-2010 [facility] WITHOUT OLOGYAS MENTION HEMORRHAGE 52729 ESOPHAGEAL 05-24-2010 [facility] REFLUX GASTROENTER OLOGYAS 49964 LOSS OF 05-24-2010 [facility] WEIGHT GASTROENTER OLOGYAS 7871 HEARTBURN 05-24-2010 [facility] GASTROENTER OLOGYAS 96861 NONSPECIFIC 05-20-2010 [facility] ELECTROCARD MED CTR IOGRAM 3670 HYPERMETROP 03-15-2009 SHEWMAKER FERNANDEZ JESSICA COD 09028 DIARRHEA 01-14-2009 [facility] 40961 UNSPECIFIED 01-14-2009 [facility]CONT[facility]ENC [facility] G[facility], [employer]. 6929 CONTACT 09-07-2008 ARNOLD, DERMATITIS& VLAD W OTHER ECZEMA DUE UNSPEC CAUSE 4659 ACUTE URIS 07-01-2008 [facility] UNSPECIFIED [facility] G[facility], INC. 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 Medications Na ND Rx Da Fi Fi [...] 7- 7- 00 CA 76 LD ve IL 37 20 20 RE 5 AM 30 [...] -3 -3 .0 D 90 NO ti IL 62 1- 1- 00 CA 13 LD [...] -0 -0 .0 D 75 NO ti IL 62 3- 3- 00 CA 51 LD [...] 8- 7- 00 ER 21 ER ve IL 34 20 20 0 AM 40 09 [...] 0- 0- 00 ER 35 G- ve IL 34 20 20 0 TH AM 40 [...] 0- 1- 00 ER 35 G- ve IL 34 20 20 0 TH AM 40 [...] 0- 3- 00 IC 85 G- ve IL 50 20 20 TH AM 98 09 [...] 0- 6- 00 IC 85 G- ve IL 50 20 20 TH AM 98 09 [...] AR CY D TA W BL ET PA 37 03 03 00 36 6 CL 18 AR Ac LK 20 -1 -2 0. IN 92 NO ti 50 1- 6- 00 IC 88 LD ve OF 83 20 20 0 34 09 09 PH RI MA 0 AR CH GN MA AR ES CY D IA W WASSERMAN SP EN SI ON BE 00 03 [...] Procedure DOS Code Location Performer Comment BASIC 95324 COMBINED COMBINED METABOLIC 7 PHYSICIAN PHYSICIAN PANEL S LAB S LAB CALCIUM TOTAL TRAVEL 1 08-[address] MED 7 PHYSICIAN PHYSICIAN NEC LAB S LAB S LAB SPEC; PRORATD TRIP CHRG COLLECTIO 86497 COMBINED COMBINED N VENOUS 7 PHYSICIAN PHYSICIAN BLOOD S LAB S LAB VENIPUNCT URE HOS BED E0303 MIC LOPEZ DUTY 7 HOME HOME W/WT CAP MEDICAL MEDICAL >350 EQUIPME EQUIPME PDS</=TO 600 PDS NONEMERG A0120 FEDERATED FEDERATED TRNSPRT: 7 [facility]I-BUS TRANSPORT TRANSPORT [facility]/OTH SYS NONEMERG A0120 FEDERATED FEDERATED TRNSPRT: 7 MINI-BUS TRANSPORT TRANSPORT [facility]OTH SYS NONEMERG A0120 FEDERATED FEDERATED TRNSPRT: 7 MINI-BUS TRANSPORT TRANSPORT [facility]/OT SYS BASIC 89795 COMBINED COMBINED METABOLIC 7 PHYSICIAN PHYSICIAN PANEL S LA S LA CALCIUM TOTAL TRAVEL [address] MED 7 PHYSICIAN PHYSICIAN NEC LAB S LA S LA SPEC; PRORATD TRIP CHRG COLLECTIO 46281 COMBINED COMBINED N VENOUS 7 PHYSICIAN PHYSICIAN BLOOD S LA S LA VENIPUNCT URE NONEMERG A0120 FEDERATED FEDERATED TRNSPRT: 7 MINI-BUS TRANSPORT TRANSPORT [facility]OTH SYS BASIC 50831 COMBINED COMBINED METABOLIC 7 PHYSICIAN PHYSICIAN PANEL S LA S LA CALCIUM TOTAL TRAVEL [address] MED 7 PHYSICIAN PHYSICIAN NEC LAB S LA S LA SPEC; PRORATD TRIP CHRG COLLECTIO 33662 COMBINED COMBINED N VENOUS 7 PHYSICIAN PHYSICIAN BLOOD S LA S LA VENIPUNCT URE COLLECTIO 43740 COMBINED COMBINED N VENOUS 7 PHYSICIAN PHYSICIAN BLOOD S LA S LA VENIPUNCT URE TRAVEL [address] MED 7 PHYSICIAN PHYSICIAN NEC LAB S LA S LA SPEC; PRORATD TRIP CHRG BASIC 31350 COMBINED COMBINED METABOLIC 7 PHYSICIAN PHYSICIAN PANEL S LA S LA CALCIUM TOTAL HEMOGLOBI 88791 COMBINED COMBINED N 7 PHYSICIAN PHYSICIAN GLYCOSYLA [...] ATION SER ATION SER AREA/OTH SYS BASIC 10096 COMBINED COMBINED METABOLIC 7 PHYSICIAN PHYSICIAN PANEL S LA S LA CALCIUM TOTAL TRAVEL [address] MED 7 PHYSICIAN PHYSICIAN NEC LAB S LA S LA SPEC; PRORATD TRIP CHRG COLLECTIO 74369 COMBINED COMBINED N VENOUS 7 PHYSICIAN PHYSICIAN BLOOD S LA S LA VENIPUNCT URE VOLUME 60995 COMBINED COMBINED MEASUREME 6 PHYSICIAN PHYSICIAN NT TIMED [place] [address] COMBINED COMBINED THYROID 6 PHYSICIAN PHYSICIAN STIMULATI S LA S LA NG HORMONE TSH BASIC 46628 COMBINED COMBINED METABOLIC 6 PHYSICIAN PHYSICIAN PANEL S LA S LA CALCIUM TOTAL HEMOGLOBI 91890 COMBINED COMBINED N 6 PHYSICIAN PHYSICIAN GLYCOSYLA S LA S LA JULISA A1C URNLS DIP 52319 COMBINED COMBINED 6 PHYSICIAN PHYSICIAN STICK/TAB S LA S LA LET REAGENT AUTO MICROSCOP Y LIPID 34811 COMBINED COMBINED PANEL 6 PHYSICIAN PHYSICIAN S LA S LA NONEMERG A0120 FEDERATED FEDERATED TRNSPRT: 6 MINI-BUS TRANSPORT TRANSPORT MTN ATION SER ATION SER AREA/OTH SYS NONEMERG A0120 FEDERATED FEDERATED TRNSPRT: 6 MINI-BUS TRANSPORT TRANSPORT MTN ATION SER ATION SER AREA/OTH SYS NONEMERG A0120 FEDERATED FEDERATED TRNSPRT: 6 MINI-BUS TRANSPORT TRANSPORT MTN ATION SER ATION SER AREA/OTH SYS DEBRIDEME 65305 BRAUDIS BRAUDIS NT NAIL 6 ANY METHOD 1-5 PARING/CU 27800 BRAGARCIAS BRAUDIS TTING 6 BENIGN HYPERKERA TOTIC LESION 2-4 TRIMMING 97660 BRAUDIS BRAUDIS NONDYSTRO 6 PHIC NAILS ANY NUMBER ECHO 46454 J[facility] 6 MEDICAL NOAM 2D SERV W/WOM-MOD FOUNDATIO E COMPL N SPEC&COLR D DUP-SCAN 68679 [facility] ROSELYN XTR VEINS 6 MEDICAL [facility]AG[facility] UNILATERA ASS L/LIMITED STUDY GROUND A0425 [facility] MILEAGE 6 AMBULANCE AMBULANCE PER SERVICE SERVICE STATUTE MILE AMBULANCE A0429 [facility] SERVICE 6 AMBULANCE AMBULANCE BLS SERVICE SERVICE EMERGENCY TRANSPORT DEBRIDEME 49051 JUANA MOLINAUDIS NT NAIL 6 JAM JAM ANY METHOD 1-5 PARING/CU 72379 TRACYUDIS BRAUDIS TTING 6 JAM JAM BENIGN HYPERKERA TOTIC LESION >4 TRIMMING 64345 TRACYUDIS BRAUDIS NONDYSTRO 6 JAM JAM PHIC NAILS ANY NUMBER COLLECTIO 50483 COMBINED COMBINED N VENOUS 6 PHYSICIAN PHYSICIAN BLOOD S LA S LA VENIPUNCT URE TRAVEL [address] MED 6 PHYSICIAN PHYSICIAN NEC LAB S LA S LA SPEC; PRORATD TRIP CHR BASIC 63871 COMBINED COMBINED METABOLIC 6 PHYSICIAN PHYSICIAN PANEL S LA S LA CALCIUM TOTAL HEMOGLOBI 94766 COMBINED COMBINED N 6 PHYSICIAN PHYSICIAN GLYCOSYLA S LA S LA JULISA A1C TRAVEL [address] MED 6 PHYSICIAN PHYSICIAN NEC LAB S LA S LA SPEC; PRORATD TRIP CHRG COLLECTIO 52405 COMBINED COMBINED N VENOUS 6 PHYSICIAN PHYSICIAN BLOOD S LA S LA VENIPUNCT URE PARING/CU 88223 BRAUDIS BRAUDIS TTING 6 JAM JAM BENIGN HYPERKERA TOTIC LESION >4 DEBRIDEME 76232 TONYS BRAUDIS NT NAIL 6 JAM JAM ANY METHOD 1-5 TRIMMING 21875 BRAUDIS BRAUDIS NONDYSTRO 6 JAM JAM PHIC [...] S LA SPEC; PRORATD TRIP CHRG HEMOGLOBI 46861 COMBINED COMBINED N 6 PHYSICIAN PHYSICIAN GLYCOSYLA S LA S LA JULISA A1C COLLECTIO 59351 COMBINED COMBINED N VENOUS 6 PHYSICIAN PHYSICIAN BLOOD S LA S LA VENIPUNCT URE COLLECTIO 77022 COMBINED COMBINED N VENOUS 5 PHYSICIAN PHYSICIAN BLOOD S LA S LA VENIPUNCT URE BASIC 37733 COMBINED COMBINED METABOLIC 5 PHYSICIAN PHYSICIAN PANEL [...] S LA SPEC; PRORATD TRIP CHRG HEMOGLOBI 14841 COMBINED COMBINED N 5 PHYSICIAN PHYSICIAN GLYCOSYLA S LA S LA JULISA A1C COLLECTIO 80096 COMBINED COMBINED N VENOUS 5 PHYSICIAN PHYSICIAN BLOOD S LA S LA VENIPUNCT URE URNLS DIP 46132 COMBINED COMBINED 5 PHYSICIAN PHYSICIAN STICK/TAB S LA S LA LET REAGENT AUTO MICROSCOP Y VOLUME 78503 COMBINED COMBINED MEASUREME 5 PHYSICIAN PHYSICIAN NT TIMED S LA S LA COLLECTIO N EACH PARING/CU 43964 JUANA ARIAS TTING 5 JAM JAM BENIGN HYPERKERA TOTIC LESION >4 DEBRIDEME 85332 JUANA ARIAS NT NAIL 5 JAM JAM ANY METHOD 1-5 TRIMMING 07-30-201 83727 BRAUDIS BRAUDIS NONDYSTRO 5 JAM JAM PHIC NAILS ANY NUMBER COLLECTIO 52366 COMBINED COMBINED N VENOUS 5 PHYSICIAN PHYSICIAN BLOOD S LA S LA VENIPUNCT URE TRAVEL [address] MED 5 PHYSICIAN PHYSICIAN NEC LAB S LA S LA SPEC; PRORATD TRIP CHRG HEMOGLOBI 73659 COMBINED COMBINED N 5 PHYSICIAN PHYSICIAN GLYCOSYLA S LA S LA JULISA A1C HEMOGLOBI 88845 COMBINED COMBINED N 5 PHYSICIAN PHYSICIAN GLYCOSYLA S LA S LA JULISA A1C TRAVEL [address] MED 5 PHYSICIAN PHYSICIAN NEC LAB S LA S LA SPEC; PRORATD TRIP CHRG COLLECTIO 30942 COMBINED COMBINED N VENOUS 5 PHYSICIAN PHYSICIAN BLOOD S LA S LA VENIPUNCT URE NONEMERG A0120 FEDERATED FEDERATED TRNSPRT: 5 MINI-BUS TRANSPORT TRANSPORT [facility] SER [facility] SER AREA/OTH SYS DIAB ONLY A5500 [facility] FIT CSTM 5 MEDICAL MEDICAL PREP&SPL SUPPLY SUPPLY [employer] DNSITY INSRT FOR DIAB A5512 [facility] ONLY MX 5 MEDICAL MEDICAL DNSITY SUPPLY SUPPLY [employer] LLC FORMD PRFAB EA TRAVEL [address] MED 5 PHYSICIAN PHYSICIAN NEC LAB S LA S LA SPEC; PRORATD TRIP CHRG BASIC 99904 COMBINED COMBINED METABOLIC 5 PHYSICIAN PHYSICIAN PANEL S LA S LA CALCIUM TOTAL COLLECTIO 98078 COMBINED COMBINED N VENOUS 5 PHYSICIAN PHYSICIAN BLOOD S LA S LA VENIPUNCT URE COLLECTIO 43841 COMBINED COMBINED N VENOUS 5 PHYSICIAN PHYSICIAN BLOOD S LA S LA VENIPUNCT URE HEMOGLOBI 17524 COMBINED COMBINED N 5 PHYSICIAN PHYSICIAN GLYCOSYLA [...] [employer] DNSITY INSRT DEBRIDEME 72226 JUANA ARIAS NT NAIL 4 JAM JAM ANY METHOD 1-5 PARING/CU 63516 JUANA JIMENEZS TTING 4 JAM JAM BENIGN HYPERKERA TOTIC LESION 2-4 TRIMMING 70490 JUANA ARIAS NONDYSTRO 4 JAM JAM PHIC NAILS ANY NUMBER COLLECTIO 75217 COMBINED COMBINED N VENOUS 4 PHYSICIAN PHYSICIAN BLOOD S LA S LA VENIPUNCT URE TRAVEL [address] MED 4 PHYSICIAN PHYSICIAN NEC LAB S LA S LA SPEC; PRORATD TRIP CHRG HEMOGLOBI 80509 COMBINED COMBINED N 4 PHYSICIAN PHYSICIAN GLYCOSYLA S LA S LA JULISA A1C HEMOGLOBI 68008 COMBINED COMBINED N 4 PHYSICIAN PHYSICIAN GLYCOSYLA S LA S LA JULISA A1C TRAVEL [address] MED 4 PHYSICIAN PHYSICIAN NEC LAB S LA S LA SPEC; PRORATD TRIP CHRG COLLECTIO 43851 COMBINED COMBINED N VENOUS 4 PHYSICIAN PHYSICIAN BLOOD S LA S LA VENIPUNCT URE COLLECTIO 63740 COMBINED COMBINED N VENOUS 4 PHYSICIAN PHYSICIAN BLOOD S LA S LA VENIPUNCT URE TRAVEL [address] MED 4 PHYSICIAN PHYSICIAN NEC LAB S LA S LA SPEC; PRORATD TRIP CHRG BASIC 53456 COMBINED COMBINED METABOLIC 4 PHYSICIAN PHYSICIAN PANEL S LA S LA CALCIUM TOTAL HEMOGLOBI 19922 COMBINED COMBINED N 4 PHYSICIAN PHYSICIAN GLYCOSYLA S LA S LA JULISA A1C TRAVEL [address] MED 4 PHYSICIAN PHYSICIAN NEC LAB S LA S LA SPEC; PRORATD TRIP CHRG COLLECTIO 09312 COMBINED COMBINED N VENOUS 4 PHYSICIAN PHYSICIAN BLOOD S LA S LA VENIPUNCT URE PARING/CU 92988 JUANA JIMENEZJordan TTING 4 JAM JAM BENIGN HYPERKERA TOTIC LESION >4 DEBRIDEME 87376 JUANA ARIAS NT NAIL 4 JAM JAM ANY METHOD 1-5 TRIMMING 22495 JUANA JIMENEZS NONDYSTRO 4 JAM JAM PHIC NAILS ANY NUMBER TRAVEL [address] MED 4 PHYSICIAN PHYSICIAN NEC LAB S LA S LA SPEC; PRORATD TRIP CHRG COLLECTIO 47366 COMBINED COMBINED N VENOUS 4 PHYSICIAN PHYSICIAN BLOOD S LA S LA VENIPUNCT URE HEMOGLOBI 70077 COMBINED COMBINED N 4 PHYSICIAN PHYSICIAN GLYCOSYLA S LA S LA JULISA A1C NONEMERG A0120 FEDERATED FEDERATED TRNSPRT: 4 MINI-BUS TRANSPORT TRANSPORT [facility]/OT SYS BASIC 10666 COMBINED COMBINED METABOLIC 3 PHYSICIAN PHYSICIAN PANEL S LA S LA CALCIUM TOTAL COLLECTIO 55190 COMBINED COMBINED N VENOUS 3 PHYSICIAN PHYSICIAN BLOOD S LA S LA VENIPUNCT URE NONEMERG A0120 FEDERATED FEDERATED TRNSPRT: 3 MINI-BUS TRANSPORT TRANSPORT [facility] SYS INFLUENZA Q2038 YUDY JIMENES VACC 3 [facility] VIRUS 3 YRS & > IM FLUZONE ADMINISTR G0008 YUDY JIMENES ATION OF 3 [facility] VIRUS VACCINE DEBRIDEME 24162 JUANA JIMENEZS NT NAIL 3 JAM JAM ANY METHOD 1-5 PARING/CU 30527 BRAUDIS BRAUDIS TTING 3 JAM JAM BENIGN HYPERKERA TOTIC LESION 2-4 TRIMMING 28466 TRACYUDIS TRACYUDIS NONDYSTRO 3 JAM JAM PHIC NAILS ANY NUMBER COLLECTIO 71305 COMBINED COMBINED N VENOUS 3 PHYSICIAN PHYSICIAN BLOOD S LA S LA VENIPUNCT URE HEMOGLOBI 84871 COMBINED COMBINED N 3 PHYSICIAN PHYSICIAN GLYCOSYLA S LA S LA JULISA A1C NONEMERG A0120 LKLP CAC LKLP CAC TRNSPRT: 3 INC INC MINI-BUS REGION 11 REGION 11 [facility]/OT SYS BASIC 42670 COMBINED COMBINED METABOLIC 3 PHYSICIAN PHYSICIAN PANEL S LA S LA CALCIUM TOTAL HEMOGLOBI 34684 COMBINED COMBINED N 3 PHYSICIAN PHYSICIAN GLYCOSYLA S LA S LA JULISA A1C TRAVEL [address] MED 3 PHYSICIAN PHYSICIAN NEC LAB S LA S LA SPEC; PRORATD TRIP CHRG COLLECTIO 60701 COMBINED COMBINED N VENOUS 3 PHYSICIAN PHYSICIAN BLOOD S LA S LA VENIPUNCT URE RADIOLOGI 69473 EXPRESS EXPRESS C EXAM 3 MOBILE MOBILE CHEST 2 DIAGNOSTI DIAGNOSTI VIEWS C SE C SE FRONTAL&L ATERAL TRANS R0070 EXPRESS EXPRESS PRTBL 3 MOBILE MOBILE X-RAY DIAGNOSTI DIAGNOSTI EQP&PERS C SE C SE LINDSEY/NRS LINDSEY-TRIP 1 PT SET-UP Q0092 EXPRESS [facility] PORTABLE 3 MOBILE MOBILE X-RAY DIAGNOSTI DIAGNOSTI EQUIPMENT C SE C SE HEMOGLOBI 30070 COMBINED COMBINED N 3 PHYSICIAN PHYSICIAN GLYCOSYLA S LA S LA JULISA A1C COLLECTIO 61299 COMBINED COMBINED N VENOUS 3 PHYSICIAN PHYSICIAN BLOOD S LA S LA VENIPUNCT URE TRAVEL [address] MED 3 PHYSICIAN PHYSICIAN NEC LAB S LA S LA SPEC; PRORATD TRIP CHRG DEBRIDEME 50128 BRAUDIS BRAUDIS NT NAIL 3 JAM JAM ANY METHOD 1-5 TRIMMING 79590 BRAUDIS BRAUDIS NONDYSTRO 3 JAM JAM PHIC NAILS ANY NUMBER COLLECTIO 75992 COMBINED COMBINED N VENOUS 2 PHYSICIAN PHYSICIAN BLOOD S LA S LA VENIPUNCT URE BASIC 69075 COMBINED COMBINED METABOLIC 2 PHYSICIAN PHYSICIAN PANEL S LA S LA CALCIUM TOTAL TRAVEL [address] MED 2 PHYSICIAN PHYSICIAN NEC LAB S LA S LA SPEC; PRORATD TRIP CHRG AMBULANCE A0429 [facility] SERVICE 2 AMBULANCE AMBULANCE BLS SERVICE SERVICE EMERGENCY TRANSPORT GROUND A0425 [facility] MILEAGE 2 AMBULANCE AMBULANCE PER SERVICE SERVICE STATUTE MILE NONEMERG A0120 LKLP LKLP TRNSPRT: 2 COMMUNITY COMMUNITY MINI-BUS ACTION ACTION MTN AREA/OTH SYS HEMOGLOBI 16185 COMBINED COMBINED N 2 PHYSICIAN PHYSICIAN GLYCOSYLA S LA S LA JULISA A1C TRAVEL [address] MED 2 PHYSICIAN PHYSICIAN NEC LAB S LA S LA SPEC; PRORATD TRIP CHRG COLLECTIO 72612 COMBINED COMBINED N VENOUS 2 PHYSICIAN PHYSICIAN BLOOD S LA S LA VENIPUNCT URE DEBRIDEME 82124 JUANA ARIAS NT NAIL 2 JAM JAM ANY METHOD 1-5 TRIMMING 32003 JUANA ARIAS NONDYSTRO 2 JAM JAM PHIC NAILS ANY NUMBER PARING/CU 66075 JUANA JIMENEZS TTING 2 JAM JAM BENIGN HYPERKERA TOTIC LESION 1 ADMINISTR G0008 YUDY VICTORON ATION OF 2 [facility] VIRUS VACCINE INFLUENZA Q2038 YUDY JIMENES VACC 2 [facility] VIRUS 3 YRS & > IM FLUZONE TRIMMING 01537 JUANA ARIAS NONDYSTRO 2 JAM JAM PHIC NAILS ANY NUMBER DEBRIDEME 71224 JUANA ARIAS NT NAIL 2 JAM JAM ANY METHOD 1-5 COLLECTIO 90632 COMBINED COMBINED N VENOUS 2 PHYSICIAN PHYSICIAN BLOOD S LA S LA VENIPUNCT URE TRAVEL [address] MED 2 PHYSICIAN PHYSICIAN NEC LAB S LA S LA SPEC; PRORATD TRIP CHRG HEMOGLOBI 78992 COMBINED COMBINED N 2 PHYSICIAN PHYSICIAN GLYCOSYLA S LA S LA JULISA A1C PARING/CU 30394 JUANA ARIAS TTING 2 JAM JAM BENIGN HYPERKERA TOTIC LESION 1 TRANS R0070 [facility] PRTBL 2 [facility] Network Game Interaction X-RAY EQP&PERS LINDSEY/NRS LINDSEY-TRIP [address] [place] [address] LAB LUCY LAB LUCY IRON 2 [employer] SET-UP Q0092 [facility] PORTABLE 2 [facility] Network Game Interaction X-RAY EQUIPMENT RADIOLOGI 43331 [facility] C 2 [facility] EXAMINATI ON KNEE 3 VIEWS COLLECTIO 59436 COMBINED COMBINED N VENOUS 2 PHYSICIAN PHYSICIAN BLOOD S LA S LA VENIPUNCT URE TRAVEL [address] MED 2 PHYSICIAN PHYSICIAN NEC LAB S LA S LA SPEC; PRORATD TRIP CHRG DEBRIDEME 82404 JUANA ARIAS NT NAIL 2 JAM JAM ANY METHOD 1-5 TRIMMING 81586 BRAUDIS BRAUDIS NONDYSTRO 2 JAM JAM PHIC NAILS ANY NUMBER BX SKIN 83132 DERMATOLO FINK-WEB SUBCUTANE 2 GY B RAYMOND OUS&/MUCO CONSULTAN US TS PSC MEMBRANE 1 [place] L[place] [address] DERMATOLO BRITTON II SURG 2 GY TERRY PATHOLOGY CONSULTAN TS PSC GROSS&SEJAL ROSCOPIC EXAM DESTRUCTI 18130 DERMATOLO FINK-WEB ON BENIGN 2 GY B RAYMOND LESIONS CONSULTAN UP TO 14 TS PSC NONEMERG A0120 LKLP LKLP TRNSPRT: 2 COMMUNITY COMMUNITY MINI-BUS ACTION ACTION MTN AREA/OTH SYS HEMOGLOBI 74895 COMBINED COMBINED N 2 PHYSICIAN PHYSICIAN GLYCOSYLA S LA S LA JULISA A1C TRAVEL [address] MED 2 PHYSICIAN PHYSICIAN NEC LAB S LA S LA SPEC; PRORATD TRIP CHRG COLLECTIO 47517 COMBINED COMBINED N VENOUS 2 PHYSICIAN PHYSICIAN BLOOD S LA S LA VENIPUNCT URE RADEX HIP 54361 PORTARAD PORTARAD 1 [facility]egal UNILATERA L COMPLETE MINIMUM 2 VIEWS TRANS R0070 Verimed PORTCerus EndovascularD PRTBL 1 Cegal X-RAY EQP&PERS LINDSEY/NRS LINDSEY-TRIP 1 PT SET-UP Q0092 PORT[facility] PORTARAD PORTABLE 1 Cegal X-RAY EQUIPMENT GROUND A0425 [facility] 1 AMBULANCE AMBULANCE PER SERVICE SERVICE STATUTE MILE AMBULANCE A0429 [facility] SERVICE 1 AMBULANCE AMBULANCE BLS SERVICE SERVICE EMERGENCY TRANSPORT CUL BACT 75730 YUDY JIMENES XCPT 1 [facility] URINE INC INC BLOOD/STO OL AEROBIC ISOL CUL BACT 99470 YUDY JIMENES AEROBIC 1 [facility] ADDL INC INC METHS DEFINITIV E EA ISOL SUSCEPTIB 35641 YUDY JIMENES LTY STDY 1 [facility] ANTIMICRB INC INC IAL MICRO/[place] [address] YUDY JIMENES INFUSION 1 [facility] HYDRATION INC INC EACH ADDITIONA L HOUR ECG 99154 YUDY JIMENES ROUTINE 1 [facility] ECG INC INC W/LEAST 12 LDS TRCG ONLY W/O I&[place] [address] YUDY JIMENES INFUSION 1 [facility] THERAPY/P INC INC ROPHYLAXI S /DX 1ST TO 1 HR ECG 61746 YUDY EDMONDS ROUTINE 1 [facility] W/LEAST P 12 LDS I&R ONLY CREATINE 50778 YUDY YUDY KINASE 1 [facility] [place] [address] YUDY JIMENES LIPASE 1 [facility] INC INC COMPREHEN 58051 YUDY JIMENES SIVE 1 [facility] METABOLIC INC INC PANEL CREATINE 80460 YUDY JIMENES KINASE MB 1 [facility] FRACTION INC INC ONLY BLOOD 05272 YUDY YUDY COUNT 1 [facility] COMPLETE INC INC AUTO&[place] [address] YUDY YUDY TROPONIN 1 [facility] QUANTITAT INC INC KAILASH BLOOD 15794 YUDY YUDY OCCULT 1 [facility] PEROXIDAS INC INC E ACTV QUAL FECES 1-3 SPEC BLOOD 14061 COMBINED COMBINED COUNT 1 PHYSICIAN PHYSICIAN COMPLETE S LA S LA AUTO&AUTO DIFRNTL WBC LIPID 67040 COMBINED COMBINED PANEL 1 PHYSICIAN PHYSICIAN S LA S LA COMPREHEN 39784 COMBINED COMBINED SIVE 1 PHYSICIAN PHYSICIAN METABOLIC S LA S LA PANEL TRAVEL [address] MED 1 PHYSICIAN PHYSICIAN NEC LAB S LA S LA SPEC; PRORATD TRIP CHRG COLLECTIO 48741 COMBINED COMBINED N VENOUS 1 PHYSICIAN PHYSICIAN BLOOD S LA S LA VENIPUNCT URE ADMINISTR G0008 YUDY JIMENES ATION OF 1 [facility] VIRUS VACCINE INFLUENZA Q2038 YUDY JIMENES VACC 1 [facility] VIRUS 3 YRS & > IM FLUZONE NONEMERGE A0100 [facility] 1 COMMUNITY TRANSPORT ACTION ATION; TAXI SCR G0145 PATHOLOGY PATHOLOGY CYTOPATH 1 & & CERV/VAG CYTOLOGY CYTOLOGY SCR LAB LAB AUTO&MNL RSCR PHYS TRAVEL [address] MED 1 PHYSICIAN PHYSICIAN NEC LAB S LA S LA SPEC; PRORATD TRIP CHRG COLLECTIO 62781 COMBINED COMBINED N VENOUS 1 PHYSICIAN PHYSICIAN BLOOD S LA S LA VENIPUNCT URE GLUCOSE 16390 COMBINED COMBINED QUANTITAT 1 PHYSICIAN PHYSICIAN KAILASH BLOOD S LA S LA XCPT REAGENT STRIP HEMOGLOBI 52418 COMBINED COMBINED N 1 PHYSICIAN PHYSICIAN GLYCOSYLA S LA S LA JULISA A1C NONEMERGE A0100 [facility] COMM[facility] TRANSPORT ACTION ATION; TAXI NONEMERGE A0100 [facility] 1 COMMUNITY TRANSPORT ACTION ATION; TAXI DEEP D9220 THE SHE SEDATION/ 1 IMPLANT & III LANA GENERAL ORAL ANESTHESI SURGERY C A-1ST 30 MINUTES ALVEOLOPL 19222 [facility] EACH 1 IMPLANT & III LANA QUADRANT ORAL SPECIFY SURGERY C NONEMERGE A0100 [facility] 1 COMMUNITY TRANSPORT ACTION ATION; TAXI ORTHOPANT 69547 THE SHE OGRAM 1 IMPLANT & III LANA ORAL SURGERY C NONEMERGE A0100 [facility] 1 COMMUNITY TRANSPORT ACTION ATION; TAXI EGD 56729 [facility] TRANSORAL 0 ROSS BIOPSY GASTROENT SINGLE/MU EROLOGYAS LTIPLE INITIAL 70586 [facility] INPATIENT 0 ROSS CONSULT GASTROENT NEW/ESTAB EROLOGYAS PT [address] [facility] ROUTINE 0 ALBERT THE ECG MED CTR W/LEAST 12 LDS I&R ONLY DETERMINA 86737 SHEWMAVICENTE SUBLER, TION 9 JESSICA FORRESTER REFRACTIV E STATE OPHTH 56550 SHEWMAKER SUBLER, MEDICAL 9 JESSICA FORRESTER XM&EVAL COMPRE NEW PT 1/> VST SBSQ 34428 RANDOLPH DICKSON, NURSING 9 VLAD W VLAD W FACIL CARE/DAY MINOR COMPLJ 15 MIN URNLS DIP 64713 [facility], [address] [place] D STICK/TAB FAMILY LET RGNT CARE, AUTO W/O INC. MICROSCOP Y Encounters Encounter Start End Date Code Location Performer Type Date OFFICE 29285 [facility] OUTPATIEN 7 7 PHYSICIAN T VISIT S GROUP 15 MINUTES OFFICE 85287 [facility] OUTPATIEN 7 7 PHYSICIAN T VISIT S GROUP 10 MINUTES OFFICE 80518 [facility] 7 7 Y [place] T [facility] [place] [facility] OFF[facility] 36811 [facility] 6 6 PHYSICIAN T VISIT S GROUP 10 MINUTES OFFICE 68061 [facility] OUTPATIEN 6 6 PHYSICIAN T VISIT S GROUP 10 MINUTES OFFICE 91566 [facility] OUTPATIEN 6 6 PHYSICIAN T NEW 20 S GROUP MINUTES OFFICE 77466 [facility] OUTPATIEN 6 6 PHYSICIAN QUIRINO T VISIT S GROUP 15 MINUTES EMERGENCY 43655 [facility]Y 2 2 [facility] DEPARTMEN INC T VISIT LIMITED/M INOR [facility] YUDY - 2 2 [facility] OUTPATIEN INC T EMERGENCY 74234 JAMIL JONES 2 2 EMERGENCY DEPARTMEN SERVICES T VISIT HIGH/URGE NT SEVERITY OFFICE 51838 [facility] OUTPATIEN 2 2 GY B RAYMOND T CONSULTAN MINUTES [facility] EMERGENCY 26008 JAMIL MAX 1 1 EMERGENCY SEJAL DEPARTMEN SERVICES T VISIT HIGH/URGE NT SEVERITY [facility]OSPITAL Y[facility]Y - 1 1 [facility] OUTPATIEN INC T EMERGENCY 36492 JAMIL DELGADO DEPT 1 1 EMERGENCY III DEVON VISIT SERVICES HIGH SEVERITY& THREAT [facility] EMERGENCY 67677 YUDY 1 1 [facility] DEPARTMEN INC T VISIT HIGH/URGE NT SEVERITY HOSPITAL YUDY - 1 1 [facility] OUTPATIEN INC T OFFICE 99815 [facility] 1 1 IMPLANT & III LANA T NEW 20 ORAL MINUTES SURGERY C OFFICE 11876 [facility] 9 9 PO[address] [place], T VISIT [facility] 15 CARE, MINUTES INC. OFFICE 73814 [facility] [address] Amin VISIT FAMILY 15 CARE, MINUTES INC.
--- OUTSIDE RECORDS SUMMARY | 2017-04-07 15:55 | External Medical Summary Rpt ---
Author Author [employer]ET Servin, [employer] Organization [employer] Address Unknown Phone Unavailable Results Urinalysis dipstick W Reflex Microscopic panel in Urine Observa Value Referen Units Interpr Notes Date tion ce etation Range Appeara CLEAR CLEAR No No No Sep 24 nce of informa informa informa 2017 Urine tion in tion in tion in 3:00 AM source source source data data data Bilirub NEGATIV NEG No No No Sep 24 in E informa informa informa 2017 [Presen tion in tion in tion in 3:00 AM ce] in source source source Urine data data data by Test strip Erythro NEGATIV NEG No No No Sep 24 cytes E informa informa informa 2017 [Presen tion in tion in tion in 3:00 AM ce] in source source source Urine data data data Color YELLOW YELLOW No No No Sep 24 of informa informa informa 2017 Urine tion in tion in tion in 3:00 AM source source source data data data Glucose NEG No No No Sep 24 [Mass/vol informati informati informati 2017 3:00 ume] in on in on in on in AM Urine by source source source Test data data data strip Ketones NEGATIV NEG mg/dL No No Sep 24 E informa informa 2017 [Presen tion in tion in 3:00 AM ce] in source source Urine data data by Automat ed test strip Mucus NEGATIV NEG No No No Sep 24 [Presen E informa informa informa 2016 ce] in tion in tion in tion in 3:00 AM Urine source source source sedimen data data data t by Light microsc opy Nitrite NEGATIV NEG No No No Sep 24 E informa informa informa 2017 [Presen tion in tion in tion in 3:00 AM ce] in source source source Urine data data data by Test strip pH of 5.0 - 8.5 No Normal No Sep 24 Urine informati informati 2017 3:00 on in on in AM source source data data Protein NEG mg/dL No No Sep 24 [Mass/vol informati informati 2017 3:00 ume] in on in on in AM Urine by source source Automated data data test strip Specific 1.005 - No Normal No Sep 24 gravity 1.030 informati informati 2017 3:00 of Urine on in on in AM source source data data Epithel 10-20 0 - 5 #/hpf No No Sep 24 ial informa informa 2017 cells.s tion in tion in 3:00 AM quamous source source data data [Presen ce] in Urine sedimen t by Microsc opy high power field Urobili 0.2 NEG E.U./dL No No Sep 24 nogen informa informa 2017 [Presen tion in tion in 3:00 AM ce] in source source Urine data data by Test strip Leukocyte O wbc/hpf No No Sep 24 s informati informati 2017 3:00 [#/volume on in on in AM ] in source source Urine data data Urinalysis dipstick W Reflex Microscopic panel in Urine Observa Value Referen Units Interpr Notes Date tion ce etation Range Appeara CLEAR CLEAR No No No Sep 24 nce of informa informa informa 2017 Urine tion in tion in tion in 3:00 AM source source source data data data Bilirub NEGATIV NEG No No No Sep 24 in E informa informa informa 2017 [Presen tion in tion in tion in 3:00 AM ce] in source source source Urine data data data by Test strip Erythro NEGATIV NEG No No No Sep 24 cytes E informa informa informa 2017 [Presen tion in tion in tion in 3:00 AM ce] in source source source Urine data data data Color YELLOW YELLOW No No No Sep 24 of informa informa informa 2017 Urine tion in tion in tion in 3:00 AM source source source data data data Glucose NEG No No No Sep 24 [Mass/vol informati informati informati 2017 3:00 ume] in on in on in on in AM Urine by source source source Test data data data strip Ketones NEGATIV NEG mg/dL No No Sep 24 E informa informa 2017 [Presen tion in tion in 3:00 AM ce] in source source Urine data data by Automat ed test strip Mucus NEGATIV NEG No No No Sep 24 [Presen E informa informa informa 2016 ce] in tion in tion in tion in 3:00 AM Urine source source source sedimen data data data t by Light microsc opy Nitrite NEGATIV NEG No No No Sep 24 E informa informa informa 2016 [Presen tion in tion in tion in 3:00 AM ce] in source source source Urine data data data by Test strip pH of 5.0 - 8.5 No Normal No Sep 24 Urine informati informati 2017 3:00 on in on in AM source source data data Protein NEG mg/dL No No Sep 24 [Mass/vol informati informati 2016 3:00 ume] in on in on in AM Urine by source source Automated data data test strip Specific 1.005 - No Normal No Sep 24 gravity 1.030 informati informati 2016 3:00 of Urine on in on in AM source source data data Urobili 0.2 NEG E.U./dL No No Sep 24 nogen informa informa 2016 [Presen tion in tion in 3:00 AM ce] in source source Urine data data by Test strip Choriogonadotropin.beta subunit [Units] in 24 hour Urine Observa Value Referen Units Interpr Notes Date tion ce etation Range Choriogon NEG No No No Sep 24 adotropin informati informati informati 2016 3:00 .beta on in on in on in AM subunit source source source [Units] data data data in 24 hour Urine CBC W Auto Differential panel in Blood Observa Value Referen Units Interpr Notes Date tion ce etation Range Basophils 0 - 0.2 K/MM3 Normal No Sep 24 informati 2016 2:45 [#/volume on in AM ] in source Blood by data Automated count Basophils 0.1 - 2.0 % Normal No Sep 24 /100 informati 2016 2:45 leukocyte on in AM s in source Blood by data Automated count Eosinophi 0.0 - 0.4 K/mm3 Normal No Sep 24 ls informati 2016 2:45 [#/volume on in AM ] in source Blood by data Automated count Eosinophi 0.1 - % Normal No Sep 24 ls/100 12.0 informati 2016 2:45 leukocyte on in AM s in source Blood by data Automated count Granulocy 1.8 - 7.8 K/mm3 Normal No Sep 24 sheron informati 2017 2:45 [#/volume on in AM ] in source Blood by data Automated count Granulocy 37.0 - % Normal No Sep 24 sheron/100 80.0 informati 2017 2:45 leukocyte on in AM s in source Blood by data Automated count Hematocri 37.0 - % Normal No Sep 24 t [Volume 47.0 informati 2016 2:45 on in AM Fraction] source of Blood data Hemoglobi 12.2 - g/dL No No Sep 24 n 16.2 informati informati 2017 2:45 [Mass/vol on in on in AM ume] in source source Blood data data Lymphocyt 0.7 - 4.5 K/mm3 Normal No Sep 24 es informati 2017 2:45 [#/volume on in AM ] in source Unspecifi data ed specimen by Automated count Lymphocyt 10 - 50.0 % Normal No Sep 24 es informati 2016 2:45 [#/volume on in AM ] in source Unspecifi data ed specimen by Automated count Erythrocy 27 - 31.2 pg Normal No Sep 24 te mean informati 2017 2:45 corpuscul on in AM ar source hemoglobi data n [Entitic mass] Erythrocy 31.8 - g/dl Normal No Sep 24 te mean 35.4 informati 2017 2:45 corpuscul on in AM ar source hemoglobi data n concentra tion [Mass/vol ume] by Automated count Erythrocy 82.2 - fl Normal No Sep 24 te mean 97.8 informati 2016 2:45 corpuscul on in AM ar volume source [Entitic data volume] by Automated count Monocytes 0.1 - 1.0 K/mm3 Normal No Sep 24 informati 2017 2:45 [#/volume on in AM ] in source Blood by data Automated count Monocytes 1.7 - 9.3 % Normal No Sep 24 /100 informati 2017 2:45 leukocyte on in AM s in source Blood by data Automated count Platelet 7.4 - fl Normal No Sep 24 mean 10.4 informati 2016 2:45 volume on in AM [Entitic source volume] data in Blood by Automated count Platelets 142 - 424 K/mm3 Normal No Sep 24 informati 2016 2:45 [#/volume on in AM ] in source Blood data Erythrocy 4.2 - 5.4 M/mm3 Normal No Sep 24 sheron informati 2017 2:45 [#/volume on in AM ] in source Amniotic data fluid Erythrocy 11.5 - % Normal No Sep 24 te 17.5 informati 2017 2:45 distribut on in AM ion width source [Entitic data volume] by Automated count Leukocyte 4.8 - K/MM3 Normal No Sep 24 s 10.8 informati 2017 2:45 [#/volume on in AM ] in source Blood data
--- OUTSIDE RECORDS SUMMARY | 2017-04-07 15:55 | External Medical Summary Rpt | CCD ---
Demographics Preferred Language Malaysian Marital Status Unknown Muslim Affiliation Unknown Race Unknown Ethnic Group Unknown Author Author , JET CHAUDHARY Address Unknown Phone Immunization No patient found.
--- OUTSIDE RECORDS SUMMARY | 2017-04-07 15:55 | External Medical Summary Rpt | CCD ---
Demographics Preferred Language Grenadian Marital Status Unknown Yarsanism Affiliation Unknown Race Unknown Ethnic Group Unknown Author Author , JET CHAUDHARY Address Unknown Phone Immunization No patient found.
[2017-04-07 16:28] LABS: HEMOGLOBIN 13.2 g/dL (12.2-16.2); LYMPH # 1.4 K/mm3 (0.7-4.5); LYMPH % 18.1 % (10-50.0)
[2017-04-07] MEDS ORDERED: CLINDAMYCIN HC300 MG PO (16:31)
[2017-04-07 17:41] VITALS: BP 133/80
--- NOTE | 2017-04-08 05:31 | RADIOLOGY REPORT PS360 ---
FOOT-LT-3 VIEWS HISTORY: Pain and swelling and soreness on top of foot with open wound infection ORDERING PHYSICIAN: Robel Fry MD PATIENT AGE: 42 years COMPARISON: None FINDINGS: No acute fracture or dislocation. No bony destructive process or significant degenerative change. There is a small metallic density along the plantar aspect of the proximal phalanx of the great toe consistent with a foreign body measuring approximately 3 mm.. There is mild soft tissue swelling along the dorsum of the foot with a small lucency at the mid metatarsal region and could be due to the open wound. Please correlate clinically. IMPRESSION: 1. Soft tissue swelling dorsally with suspected open wound. 2. Foreign body within the soft tissues along the plantar aspect of the great toe. 3. Otherwise negative
== END 2017-04-07 17:42 | disposition home or self-care (01) ==
LOC: ER 15:06
PROVIDERS: Emergency Medicine
DX: L03.116 Cellulitis of left lower limb (principal); B95.61 Methicillin susceptible Staphylococcus aureus infection as the cause of diseases classified elsewhere; S90.452A Superficial foreign body, left great toe, initial encounter; I10 Essential (primary) hypertension; F17.210 Nicotine dependence, cigarettes, uncomplicated; Z88.0 Allergy status to penicillin; Z88.2 Allergy status to sulfonamides; Z88.6 Allergy status to analgesic agent; Z79.899 Other long term (current) drug therapy